=== PATIENT | female | born 1930 | race Caucasian/White ===

== ENCOUNTER 2017-11-27 18:45 | Inpatient (IN) | payer MEDICARE, OTHER ==
[~2017-11-27] VITALS: Ht 157.5 cm; Wt 68.9 kg
--- OUTSIDE RECORDS SUMMARY | ~2017-11-27 | XMS | Clinical Summary ---
Demographics + + + | Address | [address] | | | [place] [address] | + + + | Home Phone | | + + + | Preferred Language | Unknown | + + + | Marital Status | | + + + | Nondenominational Affiliation | Unknown | + + + | Race | Unknown | + + + | Ethnic Group | Unknown | + + + Author + + + | Author | [facility] | | | and Jjana | + + + | Organization | [facility] | | | and Jjana | + + + | Address | Unknown | + + + | Phone | Unavailable | + + + Support + + +---------+ + | Name | Relationship | Address | Phone | + + +---------+ + | Tomy Toledo | ECON | Unknown | | + + +---------+ + | Evelia Silvestre | ECON | Unknown | | + + +---------+ + Care Team Providers + +------+ + | Care Forensic Structural Engineer Name | Role | Phone | + +------+ + | Leobardo Jerez MD | PP | | + +------+ + Allergies No Known Allergies Current Medications + + + +---------+------+------+-------+ | Prescription | Sig. | Disp. | Refills | Star | End | Statu | | | | | | t | Date | s | | | | | | Date | | | + + + +---------+------+------+-------+ | losartan (COZAAR) | Take 100 mg by mouth | | | 12/16 | | Activ | | 100 MG tablet | Daily. | | | 07/04 | | e | | | | | | 12 | | | + + + +---------+------+------+-------+ | latanoprost | Place 1 drop into | 2.5 mL | | 01/15 | | Activ | | (XALATAN) 0.005% | the right eye | | | 09/03 | | e | | ophthalmic | nightly. | | | 13 | | | | solutionIndications: | | | | | | | | Glaucoma | | | | | | | + + + +---------+------+------+-------+ | albuterol (PROAIR | Inhale 2 puffs into | | | | | Activ | | HFA) 90 mcg/puff | the lungs every 6 | | | | | e | | inhaler | hours as needed for | | | | | | | | Wheezing or | | | | | | | | Shortness of Breath. | | | | | | + + + +---------+------+------+-------+ | potassium chloride | Take 40 mEq by mouth | | | | | Activ | | (K-DUR) 20 mEq ER | Daily as needed. | | | | | e | | tablet | | | | | | | + + + +---------+------+------+-------+ | amLODIPine | Take 5 mg by mouth | | | | | Activ | | (NORVASC) 5 mg | Daily. | | | | | e | | tablet | | | | | | | + + + +---------+------+------+-------+ | formoterol | Take 20 mcg by | | | | | Activ | | (PERFOROMIST) 20 | nebulization Every | | | | | e | | MCG/2ML nebulizer | 12 hours. | | | | | | | solution | | | | | | | + + + +---------+------+------+-------+ | budesonide | Take 0.5 mg by | | | | | Activ | | (PULMICORT) 0.5 mg/2 | nebulization 2 times | | | | | e | | mL nebulizer | daily. | | | | | | | solution | | | | | | | + + + +---------+------+------+-------+ | cyanocobalamin | Take 500 mcg by | | | | | Activ | | (VITAMIN B-12) 500 | mouth Daily. | | | | | e | | mcg tablet | | | | | | | + + + +---------+------+------+-------+ | Cholecalciferol | Take 10,000 Units by | | | | | Activ | | (VITAMIN D-3) 12861 | mouth Every other | | | | | e | | units CAPS | day. | | | | | | + + + +---------+------+------+-------+ | furosemide (LASIX) | Take 20 mg by mouth | | | | | Activ | | 20 mg tablet | Daily as needed for | | | | | e | | | Edema. 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) | 02/18/2015 | + + + | Exercise hypoxemia | 02/18/2015 | + + + | Vitamin B 12 deficiency | 02/09/2015 | + + + | Glaucoma | 01/29/2013 | + + + | Vasovagal syncope | 07/29/2011 | + + + | OSTEOPOROSIS | 04/12/2011 | + + + | HYPERTENSION | | + + + | Obstructive chronic bronchitis (HCC) | | + + + | OBESITY, MILD | | + + + + + | Overview: ICD-10 Record update | + + + +---+ | NEOPLASM, MALIGNANT, BREAST, HX OF | | + +---+ | G E R D | | + +---+ | FAMILY HISTORY OF ASTHMA | | + +---+ | FH DIABETES | | + +---+ | FH LUNG CANCER | | + +---+ | SHORTNESS OF BREATH | | + +---+ | ABNORMAL HEART RHYTHMS | | + +---+ | Lacunar infarction (HCC) | | + +---+ | Macular degeneration | | + +---+ + + | Overview: left eye | + + + +---+ | Lactose intolerance | | + +---+ | Vitamin D deficiency | | + +---+ | Osteoarthritis of right shoulder | | + +---+ Immunizations + + + + | Name | Dates Previously Given | Next Due | + + + + | INFLUENZA 67 Y OR >, | 01/23/2017, 12/19/2014 | | | TRIVALENT HIGH-DOSE | | | + + + + | INFLUENZA PF 20 Y OR | 02/13/2014, 01/30/2012 | | | >,TRIVALENT | | | | RECOMBINANT | | | + + + + | PNEUMOCOCCAL | 12/19/2014 | | | CONJUGATE 13-VALENT | | | | (PCV13) | | | + + + + | ZOSTER, 1 DOSE | 12/17/2007 | | | (ADULT) | | | + + + + Family History + + +------+ + | Medical History | Relation | Name | Comments | + + +------+ + | Asthma | Brother | | | + + +------+ + | Lung cancer | Brother | | | + + +------+ + | Prostate cancer | Brother | | | + + +------+ + | Prostate cancer | Brother | | | + + +------+ + | Emphysema | Brother | | | + + +------+ + | Alzheimer's disease | Brother | | | + + +------+ + | Colon cancer | Brother | | | + + +------+ + | Heart disease | Father | | | + + +------+ + | Diabetes | Mother | | | + + +------+ + | Heart disease | Mother | | | + + +------+ + | Cancer | Sister | | neck cancer | + + +------+ + | Heart disease | Sister | | | + + +------+ + | Rheum arthritis | Sister | | | + + +------+ + + +------+ + + | Relation | Name | Status | Comments | + +------+ + + | Brother | | Alive | | + +------+ + + | Brother | | | | + +------+ + + | Brother | | | | + +------+ + + | Brother | | | | + +------+ + + | Brother | | | | + +------+ + + | Brother | | Alive | | + +------+ + + | Brother | | | | + +------+ + + | Father | | | likely heart disease | + +------+ + + | Mother | | | likely heart disease | + +------+ + + | Sister | | | cancer | + +------+ + + | Sister | | | heart disease | + +------+ + + Social History + + + +--------+ + | Tobacco Use | Types | Packs/Day | Years | Date | | | | | Used | | + + + +--------+ + | Former Smoker | Cigarettes | 2 | 35 | [birth year]/03/1948 - | | | | | | 04/17/1985 | + + + +--------+ + + +---+---+---+ | Smokeless Tobacco: | | | | | Never Used | | | | + +---+---+---+ + + | Tobacco Cessation: Counseling Given: No | + + + + +---------+ + | Alcohol Use | Drinks/We | oz/Week | Comments | | | ek | | | + + +---------+ + | No | 0 | 0.0 | | | | Standard | | | | | drinks or | | | | | | | | | | equivalen | | | | | t | | | + + +---------+ + + + + | Sex Assigned at | Date Recorded | | | | + + + | Not on file | | + + + Last Filed Vital Signs + + + + | Vital Sign | Reading | Time Taken | + + + + | Blood Pressure | 130/78 | 07/03/2017 1247 PDT | + + + + | Pulse | 72 | 07/03/20171246 PDT | + + + + | Temperature | 36.9 C (98.5 F) | 07/03/20171246 PDT | + + + + | Respiratory Rate | 16 | 02/18/20151221 PST | + + + + | Oxygen Saturation | 94% | 07/03/20171246 PDT | + + + + | Inhaled Oxygen | - | - | | Concentration | | | + + + + | Weight | 67.4 kg (148 lb 9.4 | 07/03/20171246 PDT | | | oz) | | + + + + | Height | 154.9 cm (5' 1") | 07/03/20177 PDT | + + + + | Body Mass Index | 28.08 | 07/03/20177 PDT | + + + + Plan of Treatment + + + + + | Health Maintenance | Due Date | Last Done | Comments | + + + + + | Vaccine: | | | | | Dtap/Tdap/Td (1 - | 1 | | | | Tdap) | | | | + + + + + | Statin Therapy | | | | | (optimal intensity) | 5 | | | + + + + + | Vaccine: | | 12/19/2014 | | | Pneumococcal 65+ | 6 | | | | Low/Medium Risk (2 | | | | | of 2 - PPSV23) | | | | + + + + + | Vaccine: Influenza | | 01/23/2017, 12/19/2014, | | | (#1) | 8 | 02/13/2014, Additional history | | | | | exists | | + + + + + Goals + + + + + + | Patient Goal Type | Goal | Recent Progress | Patient- | Author | | | | | Stated? | | + + + + + + | Exercise | Exercise 3x per | | No | Conteh | | | week (30 min per | | | , Phan | | | time) | | | S, MD | + + + + + + Results Not on filefrom Last 3 Months Insurance + +--------+ +--------+ +---------+ | Payer | Benefi | Subscriber | Type | Phone | Address | | | t Plan | ID | | | | | | / | | | | | | | Group | | | | | + +--------+ +--------+ +---------+ | MEDICARE | MEDICA | [id number] | Medica | +1-- | | | | RE | | re | [phone] | | | | PART A | | | | | | | AND B | | | | | + +--------+ +--------+ +---------+ | COMMERCIAL GENERIC | COMMER | [id number] | PPO | | | | | CIAL | | | | | | | PPO | | | | | | | OTHER | | | | | + +--------+ +--------+ +---------+ + +--------+ +--------+ + + | Guarantor Name | Accoun | Relation to | Date | Phone | Billing Address | | | t Type | Patient | of | | | | | | | | | | + +--------+ +--------+ + + | CARLOS TOLEDO | Person | Self [birth year] | Home: | [address] | | | al/Fam | | 1930 | [phone] [place] [address] | | | sera | | | [phone] | | + +--------+ +--------+ + +
--- OUTSIDE RECORDS SUMMARY | ~2017-11-27 | XMS | Clinical Summary ---
Demographics + + + | Address | [address] | | | [place] [address] | + + + | Home Phone | | + + + | Preferred Language | Unknown | + + + | Marital Status | Single | + + + | Rastafari Affiliation | OTH | + + + | Race | White | + + + | Ethnic Group | Not or | + + + Author + + + | Author | [facility] | + + + | Organization | [facility] | + + + | Address | Unknown | + + + | Phone | Unavailable | + + + Support + + + + + | Name | Relationship | Address | Phone | + + + + + | JESSICA WRIGHT | ECON | [place] | | + + + + + Care Team Providers + +------+ + | Care Typists Supervisor Name | Role | Phone | + +------+ + PP | Unavailable | + +------+ + Source Comments IDRIS is fully live on both [facility] and [facility] Allergies No Active Allergies Current Medications + + +-------+---------+------+------+-------+ | Prescription | Sig. | Disp. | Refills | Star | End | Statu | | | | | | t | Date | s | | | | | | Date | | | + + +-------+---------+------+------+-------+ | BABY ASPIRIN OR | DAILY | | | | | Activ | | | | | | | | e | + + +-------+---------+------+------+-------+ | COZAAR OR | DAILY | | | | | Activ | | | | | | | | e | + + +-------+---------+------+------+-------+ | ATENOLOL OR | DAILY | | | | | Activ | | | | | | | | e | + + +-------+---------+------+------+-------+ | LOVASTATIN OR | DAILY | | | | | Activ | | | | | | | | e | + + +-------+---------+------+------+-------+ | Ascorbic Acid | DAILY | | | | | Activ | | (VITAMIN C) 500 mg | | | | | | e | | Oral TABS | | | | | | | + + +-------+---------+------+------+-------+ | Prazosin HCl 2 mg | 2 am & 2 pm | | | | | Activ | | Oral Cap | | | | | | e | + + +-------+---------+------+------+-------+ | Ibandronate | 1 x month | | | | | Activ | | (BONIVA) 150 mg Oral | | | | | | e | | Tab | | | | | | | + + +-------+---------+------+------+-------+ | Losartan Potassium | x2 | | | | | Activ | | 25 mg Oral Tablet | | | | | | e | + + +-------+---------+------+------+-------+ | ADVAIR DISKUS IN | twice daily | | | | | Activ | | | | | | | | e | + + +-------+---------+------+------+-------+ | | 1/2 tab daily | | | | | Activ | | Triamterene-Hydrochl | | | | | | e | | orothiazid 37.5-25 | | | | | | | | mg Oral Capsule | | | | | | | + + +-------+---------+------+------+-------+ | Prednisolone | 1 GTT BID LEFT EYE | | | | | Activ | | Acetate (PRED FORTE) | | | | | | e | | 1 % Ophthalmic | | | | | | | | Drops, Suspension | | | | | | | + + +-------+---------+------+------+-------+ Active Problems + + + | Problem | Noted Date | + + + | HBP (high blood pressure) | 09/07/2006 | + + + | Acute angle-closure glaucoma | 09/07/2006 | + + + | Chronic angle-closure glaucoma | 09/07/2006 | + + + + + | Overview: ICD10 | + + + +---+ | Macular degeneration | | + +---+ + + | Overview: 10 YEARS | + + + +---+ | Glaucoma | | + +---+ + + | Overview: 2 MONTHS | + + + +---+ | Emphysema | | + +---+ Family History + + +------+ + | Medical History | Relation | Name | Comments | + + +------+ + | Heart Disease | Father | | DISEASE | + + +------+ + | High blood pressure | Father | | | + + +------+ + | Diabetes | Mother | | | + + +------+ + | Heart Disease | Mother | | DISEASE | + + +------+ + | High blood pressure | Mother | | | + + +------+ + + +------+--------+ + | Relation | Name | Status | Comments | + +------+--------+ + | Father | | | | + +------+--------+ + | Mother | | | | + +------+--------+ + Social History + +-------+ +--------+------+ | Tobacco Use | Types | Packs/Day | Years | Date | | | | | Used | | + +-------+ +--------+------+ | Never Assessed | | | | | + +-------+ +--------+------+ + + + | Sex Assigned at | Date Recorded | | | | + + + | Not on file | | + + + Last Filed Vital Signs + +---------+ + | Vital Sign | Reading | Time Taken | + +---------+ + | Blood Pressure | 138/74 | 09/07/2006 11:55 AM PDT | + +---------+ + | Pulse | - | - | + +---------+ + | Temperature | - | - | + +---------+ + | Respiratory Rate | - | - | + +---------+ + | Oxygen Saturation | - | - | + +---------+ + | Inhaled Oxygen | - | - | | Concentration | | | + +---------+ + | Weight | - | - | + +---------+ + | Height | - | - | + +---------+ + | Body Mass Index | - | - | + +---------+ + Plan of Treatment + + + + + | Health Maintenance | Due Date | Last Done | Comments | + + + + + | INFLUENZA VACCINE | | | | | (FLU SHOT) | 8 | | | + + + + + Results Not on filefrom Last 3 Months Insurance + +--------+ +------+-------+---------+ | Payer | Benefi | Subscriber | Type | Phone | Address | | | t Plan | ID | | | | | | / | | | | | | | Group | | | | | + +--------+ +------+-------+---------+ | MEDICARE HMO | MEDICA | xxxxx | HMO | | | | | RE HMO | | | | | + +--------+ +------+-------+---------+ + +--------+ +--------+ + + | Guarantor Name | Accoun | Relation to | Date | Phone | Billing Address | | | t Type | Patient | of | | | | | | | | | | + +--------+ +--------+ + + | CARLOS TOLEDO | Person | Self | [birth year] | Home: | [address] | | | al/Adis | | 1930 | [phone] | [place] [address] | | | sera | | | [phone] | | + +--------+ +--------+ + +"
--- OUTSIDE RECORDS SUMMARY | ~2017-11-27 | XMS | Clinical Summary ---
Demographics + + + | Address | [address] | | | [place] [address] | + + + | Home Phone | | + + + | Preferred Language | Unknown | + + + | Marital Status | | + + + | Protestant Affiliation | Unknown | + + + | Race | Unknown | + + + | Ethnic Group | Unknown | + + + Author + + + | Author | [facility] | | | and Jjana | + + + | Organization | [facility] | | | and Jjana [...] Team Providers + +------+ + | Care Industrial Order Clerk Name | Role | Phone | + [...] | | Activ | | (VITAMIN D-3) 64133 | mouth Every other | | | [...] +--------+ +---------+ | MEDICARE | MEDICA | [id number] | Medica | +1-- | | | | RE | | re | [phone] | | | | PART A | | | | | | | AND B | | | | | + +--------+ +--------+ +---------+ | COMMERCIAL GENERIC | COMMER | [id number] | PPO | | | | | [...] | 1930 | [phone] | [place] [address] | | | sera | | | [phone] | | + +--------+ +--------+ + +
--- OUTSIDE RECORDS SUMMARY | ~2017-11-27 | XMS | Clinical Summary ---
Demographics + + + | Address | [address] | | | [place] [address] | + + + | Home Phone | | + + + | Preferred Language | Unknown | + + + | Marital Status | Single | + + + | Advent Affiliation | OTH | + + + | Race | White | + + + | Ethnic Group | Not or | + + + Author + + + | Author | [facility] | + + + | Organization | [facility] | + + + | Address [...] Team Providers + +------+ + | Care Gore Seamer Name | Role | Phone | + +------+ + PP | Unavailable | + +------+ + Source Comments IDRIS is fully live on both [facility] and [facility] InPatient.[facility] Allergies No Active Allergies Current Medications + [...] | 1930 | [phone] | [place] [address] | | | sera | | | [phone] | | + +--------+ +--------+ + +"
--- OUTSIDE RECORDS SUMMARY | ~2017-11-27 | XMS | Clinical Summary ---
Demographics + + + | Address | [address] | | | [place] [address] | + + + | Home Phone | | + + + | Preferred Language | Unknown | + + + | Marital Status | | + + + | Samaritan Affiliation | Unknown | + + + | Race | Unknown | + + + | Ethnic Group | Unknown | + + + Author + + + | Author | [facility] | | | and Jjana | + + + | Organization | [facility] | | | and Jjana [...] Team Providers + +------+ + | Care State Trooper Name | Role | Phone | + [...] | | Activ | | (VITAMIN D-3) 98892 | mouth Every other | | | [...] +--------+ +---------+ | MEDICARE | MEDICA | [id number] | Medica | +1-- | | | | RE | | re | [phone] | | | | PART A | | | | | | | AND B | | | | | + +--------+ +--------+ +---------+ | COMMERCIAL GENERIC | COMMER | [id number] | PPO | | | | | [...] | 1930 | [phone] | [place] [address] | | | sera | | | [phone] | | + +--------+ +--------+ + +
--- OUTSIDE RECORDS SUMMARY | ~2017-11-27 | XMS | Clinical Summary ---
Demographics + + + | Address | [address] | | | [place] [address] | + + + | Home Phone | | + + + | Preferred Language | Unknown | + + + | Marital Status | Single | + + + | Yarsani Affiliation | OTH | + + + | Race | White | + + + | Ethnic Group | Not or | + + + Author + + + | Author | [facility] | + + + | Organization | [facility] | + + + | Address | Unknown | + + + | Phone | Unavailable | + + + Support + + + + + | Name | Relationship | Address | Phone | + + + + + | JESSICA WRIGHT | ECON | [place] | | + + + + + Care Team Providers + +------+ + | Care Peer Educator Name | Role | Phone | + +------+ + PP | Unavailable | + +------+ + Source Comments IDRIS is fully live on both [facility] and [facility] InPatient.[facility] Allergies No Active Allergies Current Medications + [...] | 1930 | [phone] | [place] [address] | | | sera | | | [phone] | | + +--------+ +--------+ + +"
[~2017-11-27 18:45] MED LIST: BUDESONIDE0.25 MG/2 INH; CARVEDILOL25 MG PO; DULERA 100 MCG/13 GM INH; K-TAB ER20 MEQ PO; LASIX20 MG PO; LOSARTAN POTAS100 MG PO; NORVASC5 MG PO; POTASSIUM CHLO20 ME1 PO; TRIAMTERENE-HC1 EAC2 PO
--- NOTE | 2017-11-28 01:00 | NUR ---
REPORT RECEIVED FROM ED RN KARISSA. PT TO ARRIVE TO MS FLOOR VIA STRETCHER, UNSTABLE ON FEET.
--- NOTE | 2017-11-28 02:01 | NUR ---
PT ARRIVES TO MS FLOOR VIA STRETCHER WITH TESSY ANDREWS AT 0115. PT TRANSFERRED WITH 3 RN ASSIST TO HOSPITAL BED. IVF INFUSING WNL LEFT AC, FLUSHED WNL. PT C/O 9/10 PAIN IN RIGHT SIDE, PRN TYLENOL ADMINISTERED. PT GIVEN ICE PACK FOR RIGHT SIDE. 2PA WITH FWW TO BSC FOR VOID AND BACK TO BED. PT WEAK ON FEET DT PAIN. LUNGS CLEAR THROUGHOUT ALL LBOES, HR REGULAR RHYTHM ON TELE 4. VITALS COMPLETE. PT ORIENTED TO ROOM, GIVEN ICE WATER. CALL LIGHT IN LAP.
--- NOTE | 2017-11-28 03:33 | NUR ---
CHECKED ON PT, APPEARS TO BE SLEEPING, EYES CLOSED, RR 24, EQUAL CHEST RISE, HOB ELEVATED. IVF INFUSING. LIGHTS OFF IN ROOM. BED ALARM ON FOR PT SAFETY. CALL LIGHT NEXT TO PT.
--- NOTE | 2017-11-28 05:48 | NUR ---
PT ASSESSMENT AND VITALS COMPLETE AT THIS TIME. PT REQUESTING TO REST IN BED, STATES PAIN "IS BETTER", ASSISTED TO REPOSITION, RATES PAIN IN RIGHT SIDE 10/24, ICE PACK IN PLACE. LUNGS CLEAR THROUGHOUT, HR REGULAR RHYTHM ON TELE 4. CSM INTACT, LEGS WEAK BILATERALLY. IVF INFUSING WNL. PT HAS CALL LIGHT IN REACH. DENIES TOILETING NEEDS AT THIS TIME.
--- NOTE | 2017-11-28 05:51 | NUR ---
PT ARRIVES TO MED SURG FLOOR AT 0115. GAIT UNSTEADY DUE TO WEAKNESS/SORE RIGHT SIDE, 2PA WITH FWW TO BSC. SKIN TEAR WITH ALLEVYN ON LEFT ELBOW, SOME REDNESS NOTED ON RIGHT SIDE, SKIN GROSSLY INTACT. IVF INFUSING THROUGHOUT SHIFT. PRN TYLENOL, REPOSITIONING, AND ICE PACK FOR PAIN MANAGEMENT. HR REGULAR RHYTHM ON TELE 4.
--- NOTE | 2017-11-28 08:09 | EKG ---
[facility] [address] [place], [place] [address] Signed Sinus rhythm with 1st degree AV block Septal infarct , age undetermined Abnormal ECG No previous ECGs available Confirmed by EMILY SALINAS MD ([id number]) on 11/28/2017 8:08:52 AM Electronically Signed By: EMILY SALINAS MD 11/28/17808 PATIENT NAME: CARLOS TOLEDO Electrocardiogram DATE OF : 34 PHYSICIAN: EMILY SALINAS MD REPORT #: [id number] REPORT IS CONFIDENTIAL AND NOT TO BE RELEASED WITHOUT AUTHORIZATION
--- NOTE | 2017-11-28 10:14 | NUR ---
GUERRERO OF SHIFT REPORT WAS GIVEN BY EDI STILL AT CHANGE OF SHIFT. WHITE BOARD WAS UPDATED. IV FLUIDS, NS AT 75 ML/HR. PATIENT WAS ASLEEP WHEN REPORT WAS GIVEN. WILL CONTINUE TO MONITOR. 0950 ROUNDED ON PATIENT FOR MORNING MEDICATIONS. WAS REPORTED BY ROLLER STAKER THAT BP WAS ELEVATED. BLOOD PRESSURE MEDICATIONS ADMINISTERED AND BP WAS REASSESS, BUT STILL ELEVATED. PATIENT ALSO EXHIBITED DIFFICULTY WITH SWALLOWING WATER WITH MORNING MEDICATIONS, WILL SUGGEST A SWALLOW EVALUATION TO HOSPITALIST. RESPRIATORY RATE WAS ELEVATED WELL, WILL UPDATE HOSPITALIST OF THIS WELL.
--- NOTE | 2017-11-28 10:22 | NUR ---
HOSPITALIST BUSY WITH CRITICAL PATIENT IN CCU. NOTIFIED CCU NURSE TO HAVE HOSPITALIST CALL WHEN SOONEST AVAILABLE FOR UPDATE ON THIS PATIENT.
--- NOTE | 2017-11-28 10:47 | NUR ---
WHILE THE PATIENT RECIEVED A BED BATH BY THE CNAs, THE CNAs REPORTED THAT THE PATIENT WAS SOB AND FATIGUED. PATIENT WAS ASSESSED AND IT WAS FOUND THAT THEIR RESPRIATORY RATE WAS 36 AND THEY HAD SHALLOW BREATHING. HOSPITALIST HAS BEEN UPDATED ON PATIENT'S CONDITION.
--- NOTE | 2017-11-28 11:00 | NUR ---
PATIENT UP TO BSC WITH 2 PERSON ASSIST FWW AND GAITBELT. BEDBATH COMPLETE. PATIENT COMPLAINS OF NOT BEING ABLE TO MOVE RIGHT LEG, RN NOTIFIED. PATIENT SOUNDS WHEEZY, RN NOTIFIED. PATIENT BACK TO BED. RN IN ROOM. OT IN ROOM TO ASSIST PATIENT WITH ORAL CARE. CALL LIGHT IN REACH. NO FURTHER NEEDS AT THIS TIME.
--- NOTE | 2017-11-28 11:16 | NUR ---
PATIENT WORKING WITH OCCUPATIONAL THERAPY AT THIS TIME.
--- NOTE | 2017-11-28 12:28 | NUR ---
2PA BACK TO BED WITH FWW. HOB RAISED. 2L [address] SOB WITH ACTIVITY.
--- NOTE | 2017-11-28 13:42 | NUR ---
PT RESTING IN BED, WELCOMED ME INTO HER RM. WE BEGAN TO VISIT AND SHE RECEIVED A PHONE CALL, WILL CHECK BACK.
--- NOTE | 2017-11-28 13:44 | NUR ---
CHECKED BACK ON PT-HAD VISITOR. WILL TRY AGAIN.
--- NOTE | 2017-11-28 14:03 | NUR ---
PATIENT IN BED. PATIENT COMPLAINED OF LABORED BREATHING, RN NOTIFIED. PATIENT ASKED ABOUT NEBULIZER TREATMENT, RN NOTIFIED. FRESH THICKEND WATER GIVEN. CALL LIGHT IN REACH. NO FURTHER NEEDS AT THIS TIME.
--- NOTE | 2017-11-28 17:12 | NUR ---
ROUNDED ON PATIENT, REPORTED "10/10 PAIN WHEN I MOVE", PRN TYLENOL ADMINISTERED. WARM BLANKET PROVIDED. TAIL BOARD MAN VISITED. PATIENT EATING DINNER. CALL LIGHT WITHIN REACH. WILL CONTINUE TO MONITOR.
[2017-11-28] MEDS ORDERED: LATANOPROST2.5 ML OU (18:21)
[2017-11-28] MEDS ORDERED: FISH OIL 1,0001 EAC2 PO (18:23)
[2017-11-28] MEDS ORDERED: [UNRECOGNIZED DRUG - OTHER] PO (18:23)
[2017-11-28] MEDS ORDERED: CURCUMIN1 GM PO (18:25)
[2017-11-28] MEDS ORDERED: [UNRECOGNIZED DRUG - REMARK] PO (18:26)
[2017-11-28] MEDS ORDERED: VITAMIN B-121000 MCG PO (18:27)
[2017-11-28] MEDS ORDERED: CALCIUM500 MG PO (18:27)
[2017-11-28] MEDS ORDERED: VITAMIN D1000 UNIT PO (18:27)
--- NOTE | 2017-11-28 18:28 | NUR ---
MED REC COMPLETE
--- NOTE | 2017-11-28 18:43 | NUR ---
2PA, BSC, FWW. 2 LPM CHRONIC WITH NC. TELE 4, SINIUS RHYTHM. PATIENT HAD DIFFICULTY SWALLOWINIG THIS MORNING, SWALLOW EVAL WAS CONDUCTED, THICKER LIQUID USED UNTIL SPEECH THERAPY COULD CONSULT. SPEECH THERAPIST ORDERED, REGULAR DIET, CHOPPED WITH NECTAR THICK LIQUIDS. PATIENT COMPLAINED OF 10/10 PAIN, PRN TYLENOL GIVEN. HIGH RESPIRATORY RATE WITH COMPLAINTS OF SOB, NEBULIZER TREATMENT PROVIDED THIS AFTERNOON. BLOOD PRESSURES TRENDED ON THE HIGHER SIDE. IV FLUIDS INFUSING.
--- NOTE | 2017-11-28 18:51 | NUR ---
PRN NEB GIVEN AT THIS TIME, FOR SHORTNESS OF BREATH, DYSPNEA WITH ACTIVITY UP TO BSC.
--- NOTE | 2017-11-28 19:01 | NUR ---
NEBULIZER TREATMENT COMPLETED. RESPRIATORY RATE 32, REPORTS IMPROVED SOB, O2: 95%, PULSE: 68.
--- NOTE | 2017-11-28 19:53 | NUR ---
RECEIVED REPORT FROM DAYSHIFT RN WHO STATES DR SALINAS IS AWARE OF PT'S RR OF 28-32 AND OF PT'S INCREASED SOB AND L SIDED PAIN WITH EXERTION. PT ON 2LPNC AND APPEARS TO BE SLEEPING COMFORTABLY. ASSESSMENT COMPLETED.
--- NOTE | 2017-11-28 22:04 | NUR ---
PT RESTING SUPINE IN BED, EYES CLOSED, RR18. PT APPEARS TO BE SLEEPING COMFORTABLY CALL LIGHT AND H20 IN REACH.
--- NOTE | 2017-11-29 01:03 | NUR ---
PT RESTING SUPINE IN BED, RR 18, CALL LIGHT IN REACH. PT EYES CLOSED AND APPEARS TO BE SLEEPING COMFORTABLY.
--- NOTE | 2017-11-29 04:16 | NUR ---
IN TO SEE PT. PT RESTING IN BED, RR16, EYES CLOSED AND APPEARS TO BE SLEEPING COMFORTABLY. H2O AND CALL LIGHT IN REACH. ICE, ABDUCTOR PILLOW, AND SCD'S IN PLACE.
--- NOTE | 2017-11-29 06:07 | NUR ---
PT RESTING SUPINE IN BED NC AT 2LPNC AND RR 20, CALL LIGHT AND H20 IN REACH. PT APPEARS TO BE SLEEPING COMFORTABLY.
--- NOTE | 2017-11-29 07:07 | NUR ---
dr saravia notified of pt's most recent vs's. no new orderes received. pt resting supine in bed and appears to be sleeping comfortably. rr20. call light and h20 in reach.
--- NOTE | 2017-11-29 08:32 | NUR ---
CHANGE OF SHIFT REPORT: REPORT RECIEVED FROM BOZENA STILL THIS MORNING. PATIENT RESTING COMFORTABLY IN BED. IV FLUIDS INFUSING. WHITE BOARD UPDATED. ALL QUESTIONS ANSWERED. 0832: ROUNDED ON PATIENT, 2PA TO BSC, MORNING MEDICATIONS PASSED WITH TYLENOL PRN FOR HER 10/10 PAIN WITH MOVEMENT. CNAs SHOWERING PAITENT WITH OCCUPATIONAL THERAPY NEARBY. LINENS CHANGED ON BED, ROOM WAS CLEANED, PROVIDED NEW CUP OF THICKENED WATER. UNABLE TO DO HEAD TO TOE ASSESSMENT AT THIS TIME.
--- NOTE | 2017-11-29 09:38 | NUR ---
PATIENT UP TO BSC FROM BED WITH 2 PERSON ASSIST FWW AND GAITBELT. PATIENT UP TO SHOWERCHAIR FROM BSC. OT IN TO HELP WITH SHOWER. PATIENT ASSISTED IN SHOWER. PATIENT NOW IN CHAIR WITH FEET UP. LINENS CHANGED. FRESH WATER GIVEN. CALL LIGHT IN REACH. NO FURTHER NEEDS AT THIS TIME.
--- NOTE | 2017-11-29 10:01 | NUR ---
0940 RECIEVED BLOOD FROM LAB AT 0930. VERIFIED THE BLOOD BAG WITH ESTEBAN CHAPIN IN THE LABORATORY. 2ND CROSS CHECK WAS CONDUCTED BY NAOMIE RN, BOBBI RN, AND MARK STILL AT PATIENTS BEDSIDE. VITAL SIGNS STABLE. INFUSION STARTED AT 0951. PATIENT ASSESSMENT CONDUCTED. PATIENT REPORTED FEELING "CLOUDY" AND "WHOOZY".
--- NOTE | 2017-11-29 11:18 | NUR ---
ROUNDED ON PATIENT TO ADMINSTER POTASSIUM AND TO REASSESS PAIN, STILL REPORTED "10/10 PAIN WITH MOVEMENT". DIFFICULTY WITH SWALLOWING PILLS EVEN WITH NECTAR THICK LIQUIDS, INSTRUCTED PATIENT TO TUCK CHIN WHILE SWALLOWING. WILL CONTINUE TO REINFORCE. UP IN RECLINER WITH FAMILY AT BEDSIDE. ONCOLOGY PHYSICIAN VISITNG WITH PATIENT AND FAMILY.
--- NOTE | 2017-11-29 11:20 | NUR ---
CARE CONFERENCE ALL PERSONS NEEDED WERE PRESENT. I WAS ASKED TO COME TO THE ROOM BY THE PT NURSE NAOMIE THE SON RUBEN WAS HERE AND HE WAS THINKING HIS MOTHER WAS BEING DISCHARGED TODAY. I REASSURED HIM THAT SHE WAS NOT BEING DC TODAY SHE IS NOT READY TO BE DISCHARGED. HE WAS OK WITH THIS. WE THEN STARTED TALKING ABOUT THE NEED FOR HER TO POSSIBLY GO TO A SNF FOR MORE REHAB TO MAKE HER STRAONGER SO SHE WOULD HOPEFULLY HAVE A SAFER DC THIS WAY. HE STATES THAT HE DOESN'T THINK SHE WILL GO TO [facility] SHE HAS DEALT WITH THEM BEFORE AND IS NOT INTERESTED IN GOING BACK THERE. I THEN BROUGHT UP THE POSSIBILITY OF THE PT BECOMING A TRANSITIONAL SWING BED PT, BOTH THE SON AND THE PT WERE MORE THAN WILLING FOR THIS TO HAPPEN RUBEN STATES HE JUST WOULD LIKE TO TALK WITH HIS SISTER ABOUT THIS. MY BUSINESS CARD GIVEN TO RUBEN AND TOLD HIM THAT HE OR HIS SISTER ARE MORE THAN WELCOME TO CALL ANYTIME OF DAY AND LEAVE A MESSAGE IN CASE I DON'T ANSWER. DENIES FURTHER QUESTIONS OR CONCERNS AT THIS TIME.
--- NOTE | 2017-11-29 12:00 | NUR ---
PT WALKING WITH P.T. SEEMED TO BE SOB, WORKING HARD TO REGAIN HER STRENGTH. ENCOURAGED PT, WILL CONTINUE TO FOLLOW
--- NOTE | 2017-11-29 13:20 | NUR ---
PATIENT BACK TO BED FROM BATHROOM. FRESH WATER PROVIDED. CALL LIGHT IN REACH. NO FURTHER NEEDS AT THIS TIME.
--- NOTE | 2017-11-29 16:27 | NUR ---
PATIENT RESTING COMFORTABLY IN CHAIR, VISITING WITH VISITORS. BANDAGE ON LEFT ELBOW SHOWS DIME SIZE DRAINAGE. WILL ALSO NOTIFY HOSPITALIST OF PATIENT'S TRENDING HIGH RESPRIRATORY RATE. REMINDED PATIENT ABOUT AVALIABLE PRN TYLENOL, PATIENT WOULD LIKE IT BROUGHT WITH DINNER. CALL LIGHT WITHIN REACH, NO MORE COMPLAINTS AT THIS TIME. WILL CONTINUE TO MONITOR.
--- NOTE | 2017-11-29 17:35 | NUR ---
PATIENT UP TO BATHROOM FROM CHAIR, 1 PERSON ASSIST FWW. PATIENT NOW BACK IN CHAIR. FRESH WATER GIVEN. CALL LIGHT IN REACH. NO FURTHER NEEDS AT THIS TIME.
--- NOTE | 2017-11-29 18:46 | NUR ---
PT WORKED WITH PT/OT/ST TODAY. NECTAR THICK LIQUIDS. CHOPPED FOOD. 1PA FWW. SOB WITH ACTIVITY. 2L 02 CHRONIC. SCHEDULED NEBS. ALLEVYN LEFT ELBOW. POTASSIUM SUPPS X2 PO. NIO ADDED FOR BOWEL MOVEMENT THERAPY. NS @ 75. TELE DISCONTINUED.
--- NOTE | 2017-11-29 19:05 | NUR ---
ROUNDED ON PATIENT FOR EVENING MEDICATIONS AND IT WAS NOTED THAT PATIENT HAD DIFFICULTY SWALLOWING PILLS WITH THICKENED LIQUIDS. LAST MEDICATION ADMINISTERED WAS CRUSHED UP AND PLACED IN PUDDING, PATIENT TOLERATED THIS WELL. REINFORCED CHIN TUCK, NONCOMPLIANT WITH CHIN TUCK.
--- NOTE | 2017-11-29 19:25 | NUR ---
REPORT RECEIVED FROM TESSY AKBAR. PT RESTING IN BED ON 2LPNC. PT DENIES SOB AND STATES PAIN IS TOLERABLE AT THIS TIME WHILE SHE IS RESTING AND REPORTS THAT SHE CONTINUES TO DEVELOP INCREASED PAIN TO RIGHT SIDE AND SOB WITH EXERTION. PER DAYSHIFT RN DR SCOTT IS AWARE OF PT'S S/SX'S AND VS'S. PT ASSESSMENT COMPLETED. CALL LIGHT AND NECTAR THICK H2O IN REACH.
--- NOTE | 2017-11-29 20:41 | NUR ---
PT ASSISTED UP TO RESTROOM WITH 2 PERSON ASSIST AND FWW. PT REMAINS ON 2LPNC AND REPORTS SOB AND RIGHT RIB PAIN WITH EXERTION BUT SX'S ARE LESS THAN YESTERDAY. PT ASSISTED BACK INTO BED. CALL LIGHT AND NECTAR THICK FLUIDS IN REACH. NO FURTHER NEEDS/REQUESTS VOICED.
--- NOTE | 2017-11-29 21:30 | NUR ---
in to ansere call light, per pt request lights turned off and hob lowered 20 25degrees. call light in reach.
--- NOTE | 2017-11-29 23:01 | NUR ---
PT RESTING SUPINE IN BED, EYES CLOSED AND PT APPEARS TO BE SLEEPING COMFORTABLY. RR 28; MD IS AWARE THAT PTS RR HAS BEEN TRENDING HIGH. PT REMAINS ON 2LPNC. CALL LIGHT AND H20 IN REACH.
--- NOTE | 2017-11-30 00:35 | NUR ---
PT ASSISTED UP TO RESTROOM WITH FSS AND 2 PERSON ASSIST. 100MLS CLEAR YELLOW URINE OUT AND PT ASSISTED BACK INTO BED. IV MAINTENANCE FLUIDS CONTINUSE TO INFUSE AND PT PLACED ON 2LPNC. CALL LIGHT AND H20 IN REACH. PT DENIES FURTHER REQUESTS/CONCERNS.
--- NOTE | 2017-11-30 02:05 | NUR ---
PT RESTING SUPINE IN BED, RR26 O2 AT 2LPNC. PT APPEARS TO BE SLEEPING COMFORTABLY. CALL LIGHT ANT NECTAR THICK WATER IN REACH.
--- NOTE | 2017-11-30 05:17 | NUR ---
VITALS AND I&OS DONE AND CHARTED. HELPED HER TO THE BATHROOM AND BACK TO BED WITH HER FWW. BEDSIDE TABLE AND CALL LIGHT WITHIN REACH.
--- NOTE | 2017-11-30 06:44 | NUR ---
PT SLEPT MAJORITY OF NIGHT. PT UP TO RESTROOM WITH 1-2 PERSON ASSIT AND FWW. PT VOIDING QS CLEAR YELLOW URINE AND TOLORATES NECTAR THICK FLUIDS. PT HAS IV MAINTENANCE FLUIDS INFUSING. PT REMAINS TACHYPNIC AND HAS SCHEDULED NEBULIZER TREATMENTS. PT CONTINUES TO REPORT INCREASED PAIN AND SOB WITH MOVEMENT/ EXERTION. PT'S VS'S HAVE BEEN STABLE FOR PT AND PT REMAINS ON 2LPNC. PT USES CALL LIGHT APPROPRIATLEY AND STATES SHE DOES NOT FEEL SOB AT REST AND PAIN HAS ALSO BEEN TOLERABLE AT REST.
--- NOTE | 2017-11-30 08:06 | NUR ---
PT IN BED, RECENTLY AWAKENED, NO DISTRESS. PT DENIES SOB, BREATHING SHALLOWLY, COULD NOT MOVE HERSELF TO HER SIDE OR UP IN BED INDEPENDENTLY FOR ASSESSMENT. PT STATES PAIN IS INCREASED WHEN SHE MOVES AND REFUSES PAIN MANAGEMENT AT THIS TIME.
--- NOTE | 2017-11-30 10:34 | NUR ---
PATIENT REFUSE TO TAKE A SHOWER TODAY. PATIENT ASSITED TO GO TO THE BATHROOM. SET UP BED WITH CLEAN LINENS.
--- NOTE | 2017-11-30 11:42 | NUR ---
PATIENT WAS PROVIDED WITH A WARM BLANKET. NO MORE NEEDS AT THIS TIME.
--- NOTE | 2017-11-30 12:00 | NUR ---
PT UP TO CHAIR AND HAVING DIFFICULTY SWALLOWING PILLS. PT STATES "I AM NOT MUCH OF A PILL TAKER." REPORTED DIFFICULTY TO PROVIDER. NO CHANGES IN CONDITION WILL CONTINUE TO MONITOR.
--- NOTE | 2017-11-30 13:09 | NUR ---
TOOK OUT PATIENT'S IV.
--- NOTE | 2017-11-30 14:17 | NUR ---
IV DISCONTINUED IN LEFT AC DUE TO LEAKAGE. TWO ATTEMPTS THIS AFTERNOON TO REPLACE, UNABLE TO PLACE IV. NOTIFIED PROVIDER, PROVIDER OK WITH NO IV ACCESS TODAY. WILL CONTINUE TO MONITOR.
--- NOTE | 2017-11-30 14:25 | NUR ---
TALKED WITH PT SON REGARDING THE TOOLS FOR ASSISTING WITH HER ADLS THAT OT SUGGESTED. HE STATED HE WOULD COME [place] TOM[place] AND SEE IF HE COULD PICK THOSE UP FOR HER AND BRING THEM HERE.
--- NOTE | 2017-11-30 17:29 | NUR ---
PT STATES SHE DENIES PAIN, IT ONLY OCCURS WHEN SHE MOVES. PT HAS NO DISTRESS, HAS HAD DIFFICULTY WITH SWALLOWING PILLS THIS AFTERNOON, BUT HAS BEEN SUCCESSFUL WITH THICKENED LIQUIDS. WILL CONTINUE TO MONITOR.
--- NOTE | 2017-11-30 17:30 | NUR ---
PT HAS COMPLAINS OF INTERMITTENT PAIN MADE WORSE BY MOVEMENT. PT HAS SIGNIFICANT WEAKNESS, MORE PRONOUNCED ON THE RIGHT SIDE. PT IS ON A DYSPHAGIA DIET WITH NECTAR THICK LIQUIDS. PT DENIES SOB, SATS STABLE AT REST WITH 2LNC, DESAT WITH EXERTION. UP WITH 1-2 ASSIST WITH FWW, UNABLE TO PULL HERSELF UP IN BED, BUT CAN AMBULATE WITH STANDBY ASSIST AND WALKER.
--- NOTE | 2017-11-30 19:02 | NUR ---
REPORT RECEIVED FROM TESSY ATKINSON. PT DENIES NEEDS AT THIS TIME AND IS SUPINE IN BED RR26. CALL LIGHT AND H20 IN REACH.
--- NOTE | 2017-11-30 20:05 | NUR ---
Pt resting in bed call light and nectar thick h20 in reach and pt denies needs at this time. Assessment completed.
--- NOTE | 2017-11-30 20:31 | NUR ---
VITALS AND I&OS DONE AND CHARTED. HELPED PT TO THE BATHROOM AND BACK TO BED WITH THE HELP FROM TESSY OWEN AND HER FWW. BEDSIDE TABLE AND CALL LIGHT WITHIN REACH. PT ALSO WASHED HER FACE AND BRUSHED HER TEETH WHEN IN THE BATHROOM. SHE NEEDS NOTHING ELSE AT THIS TIME.
--- NOTE | 2017-11-30 21:33 | NUR ---
CHARGE NURSE ROUNDING NOTE: IN BED, WATCHING TV, NO C/O PAIN OR REQUESTRS, PT [place]. HEARING AIDS, THICKENED LIQUIDS AND CALL LIGHT WITHING HANDS REACH SOB WITH EXERTION NOTED, CHRONIC O2 USE AT 2L
--- NOTE | 2017-11-30 22:50 | NUR ---
PT RESTING SUPINE IN BED, EYES CLOSED AND RR28 ON 2LPNC. PT APPEARS TO BE SLEEPING COMFORTABLY. CALL LIGHT AND NECTAR THICK FLUIDS IN REACH.
--- NOTE | 2017-11-30 23:14 | NUR ---
PT RESTING IN BED RR 28, 2LPNC IN PLACE, EYES CLOSED AND PT APPEARS TO BE SLEEPING COMFORTABLY. DR ADAMES WAS NOTIFIED THAT PT REMAINS TACHYPNIC BETWEEN 22-30 BPM & THAT THIS HAS BEEN PT'S BASELINE RR SINCE PT ADMITTED TO HOSPITAL. LUNG SOUNDS HAVE REMAINED CLEAR IN UPPER LUNG CUMMINS AND DIMINISHED IN BILAT BASES. PT DENIES SOB AT REST BUT REPORTS SOB AND PAIN TO RIGHT SIDE WITH EXERTION.
--- NOTE | 2017-12-01 00:38 | NUR ---
PT UP TO RESTROOM WITH ONE PERSON SBA AND FWW. PT REPORTS SOB AND RIGHT SIDE PAIN WITH AMBULATION THAT RELEIVES WHEN PT ASSISTED BACK INTO BED WITH ONE PERSON ASSIST (PT UNABLE TO LIFT LEGS INTO BED WITHOUT ASSISTANCE). PT PLACED IN POSITION OF COMFORTA ND PT GIVEN NECTAR THICK CRANBERRY JUICE PER REQUEST. CALL LIGHT AND FLUIDS IN REACH. PT REMAINS ON 2LPNC AND WARM PACK APPLIED TO RIGHT SIDE FOR COPMFORT. PT STATES SHE IS COMFORTABLE AND DENIES SOB/PAIN AT REST.
--- NOTE | 2017-12-01 02:20 | NUR ---
Pt resting supine in bed. call light in reach. Pt appears to be sleeping comfortably.
--- NOTE | 2017-12-01 04:23 | NUR ---
pt resting in bed eyes closed, rr 26 on 2lpnc. pt appears to be sleeping comfortably. call light and nectar thick fluid in reach.
--- NOTE | 2017-12-01 04:53 | NUR ---
PT UP TO RESTROOM WITH 1PA AND FWW.
--- NOTE | 2017-12-01 05:27 | NUR ---
VITALS AND I&OS DONE AND CHARTED. HELPED PT TO THE BATHROOM AND BACK TO BED WITH HER FWW. SHE HAD SOME DRINKS OF HER CRANBERRY JUICE. BEDSIDE TABLE AND CALL LIGHT WITHIN REACH.
--- NOTE | 2017-12-01 05:43 | NUR ---
PT SLEPT WELL THROUGH MOST OF NIGHT. PT HAS REMAINED TACHYPNIC BUT O2 SATURATION MAINTAINS ABOVE 92% ON 2LPNC AND PT HAS DENIED SOB AT REST. PT DOES REPORT PAIN TO RIGHT SIDE AND SOB WITH AMBULATION HOWEVER PT DOES NOT DESAT WITH ACTIVITY. PT HAS HAD QS CLEAR YELLOW URINE OUTPUT. PT HAS BEEN 1-2 PERSON ASSIST WITH FWW TO RESTROOM. PT'S LUNG SOUNDS ARE CLEAR IN UPPER LUNG CUMMINS BUT DIMINISHED IN BILATERAL BASES. PT HAS BEEN ENCOURAGED TO USE I.S. 10X PER HOUR WHILE AWAKE. PT HAS BEEN PLEASANT, A/O AND COMPLIANT WITH CARE PLAN. PT TOLORATES NECTAR THICK FLUIDS AND REMAINS ON DYSPHAGIA DIET.
--- NOTE | 2017-12-01 06:45 | NUR ---
PT RESTING SUPINE IN BED ALERT TO VOICE AND STATES "I FEEL LIKE I SLEPT WELL". PT ENCOURAGED TO USE I.S. 10X PER HOUR WHILE AWAKE. NECTAR THICK WATER AND CRANBERRY JUICE IN REACH AND PT WAS ENCOURAGED TO DRINK MORE FLUIDS. NO NEEDS OR CONCERNS VOICED.
--- NOTE | 2017-12-01 08:32 | NUR ---
PT SITTING UP IN BED EATING BREAKFAST, TOLERATING DYSPHAGIA DIET WITH NECTAR THICK LIQUIDS WELL. NO DISTRESS, PT STATES THAT INTERMITTENT PAIN WHILE MOVING IS IMPROVED FROM YESTERDAY. TITRATED O2 TO 3LNC DUE TO SOB. ENCOURAGED IS TO PREVENT COMPLICATIONS, PT DEMONSTRATED UNDERSTANDING. WILL CONTINUE TO MONITOR.
--- NOTE | 2017-12-01 08:44 | NUR ---
pt called to say she needed to go bathroom, assisted her to the bathroom from her bed pt used her walker. pt voided and then walked to sink where she washed her hands and face. pt also cleaned dentures and put them back in mouth. pt then walked to chair and is now sitting up with feet elevated. pt asked for a warm blanket.
== END 2017-12-01 11:20 | disposition swing bed (61) | DRG 564 ==
LOC: ED 18:45 → MS 11-28 00:27
PROVIDERS: ADMIT Internal Medicine
DX: T79.6XXA Traumatic ischemia of muscle, initial encounter (principal); I63.9 Cerebral infarction, unspecified; J96.11 Chronic respiratory failure with hypoxia; W19.XXXA Unspecified fall, initial encounter; M25.551 Pain in right hip; I10 Essential (primary) hypertension; R13.12 Dysphagia, oropharyngeal phase; R53.81 Other malaise; J44.9 Chronic obstructive pulmonary disease, unspecified; Z85.3 Personal history of malignant neoplasm of breast; M81.0 Age-related osteoporosis without current pathological fracture; E78.5 Hyperlipidemia, unspecified; H54.40 Blindness, one eye, unspecified eye; Z87.891 Personal history of nicotine dependence
CPT/HCPCS: 36415; 51701; 70450; 71101; 80048; 80053; 81001; 82550; 84484; 85025; 85610; 85730; 92610; 93005; 93010; 94640; 94760; 97110; 97116; 97162; 97166; 97535; 99285; J1650; J7030

== ENCOUNTER 2017-12-01 11:20 | Inpatient (IN) | payer MEDICARE, OTHER ==
[~2017-12-01] VITALS: Ht 157.5 cm; Wt 68.9 kg
--- OUTSIDE RECORDS SUMMARY | ~2017-12-01 | XMS | Clinical Summary ---
Demographics + + + | Address | [address] | | | [place] [address] | + + + | Home Phone | | + + + | Preferred Language | Unknown | + + + | Marital Status | | + + + | Sikh Affiliation | Unknown | + + + | Race | Unknown | + + + | Ethnic Group | Unknown | + + + Author + + + | Author | [facility] | | | and Jjana | + + + | Organization | [facility] | | | and Jjana [...] Team Providers + +------+ + | Care Show Worker Name | Role | Phone | + [...] | | Activ | | (VITAMIN D-3) [phone] | mouth Every other | | | [...] +--------+ +---------+ | MEDICARE | MEDICA | [id number] | Medica | [phone]-- | | | | RE | | re | [phone] | | | | PART A | | | | | | | AND B | | | | | + +--------+ +--------+ +---------+ | COMMERCIAL GENERIC | COMMER | [id number] | PPO | | | | | [...] | 1930 | [phone] | [place] [address] | | | sear | | | [phone] | | + +--------+ +--------+ + +
--- OUTSIDE RECORDS SUMMARY | ~2017-12-01 | XMS | Clinical Summary ---
Demographics + + + | Address | [address] | | | [place] [address] | + + + | Home Phone | | + + + | Preferred Language | Unknown | + + + | Marital Status | Single | + + + | Protestant Affiliation | OTH | + + + | Race | White | + + + | Ethnic Group | Not or | + + + Author + + + | Author | [facility] | + + + | Organization | [facility] | + + + | Address [...] Team Providers + +------+ + | Care Tube Cleaner Name | Role | Phone | + +------+ + PP | Unavailable | + +------+ + Source Comments [facility] is fully live on both [facility] and [facility].Formerly [facility] Allergies No Active Allergies Current Medications [...] | 1930 | [phone] | [place] [address] | | | sera | | | [phone] | | + +--------+ +--------+ + +"
[~2017-12-01 11:20] MED LIST changes: +CALCIUM500 MG PO; +CURCUMIN1 GM PO; +FISH OIL 1,0001 EAC2 PO; +LATANOPROST2.5 ML OU; +VITAMIN B-121000 MCG PO; +VITAMIN D1000 UNIT PO; +[UNRECOGNIZED DRUG - OTHER] PO; +[UNRECOGNIZED DRUG - REMARK] PO
--- NOTE | 2017-12-01 11:59 | NUR ---
PT WAS SITTING IN CHAIR-FEELING BETTER THAN YESTERDAY. SLEPT WELL AND SEEMS TO HAVE A LITTLE DIFFERENT PERSPECTIVE. PT REQUESTED PRAYER, WILL FOLLOW NEEDED
--- NOTE | 2017-12-01 15:44 | NUR ---
PATIENT TO SWING BED STATUS TODAY. UNDERSTANDS SHE WILL BE DOING THERAPY. PATIENT IS UP WITH PT AT THIS TIME.
--- NOTE | 2017-12-01 17:29 | NUR ---
PT UP TO CHAIR FOR MOST OF THE AFTERNOON, WORKED WITH PT. PT HAD ONE LARGE BOWEL MOVEMENT AFTER MAG CITRATE. PT HAS INTERMITTENT EXERTIONAL SOB, RESOLVES WITH REST. WILL CONTINUE TO MONITOR.
--- NOTE | 2017-12-01 18:05 | NUR ---
PT WAS TRANSITIONED TO SWING BED TODAY. PT HAS HAD A SHOWER, WORKED WITH PT/OT, HAS HAD SCHEDULED NEBS. INTERMITTENT EXERTIONAL SOB. PT HAS BEEN ABLE TO PULL HERSELF UP IN BED AND IN THE CHAIR, AND AMBULATE INDEPENDENTLY WITH FWW.
--- NOTE | 2017-12-01 20:42 | NUR ---
Up to brp with one assist and fww, voided and had a smear of bm. Pt did own sarah care. Back to bed, O2 2L NC in place, SOB present with exertion. Warm packs to r back in place. Allevyn dressing left elbow in place, denies needing elbow protectors when in bed. HOB elevated. legs elevated, bed alarm in place. fluids and call light within hands reach
--- NOTE | 2017-12-01 22:00 | NUR ---
RESTING, EYES CLOSED, O2 2L NC IN PLACE, NO RESP DISTRESS,
--- NOTE | 2017-12-02 01:00 | NUR ---
RESTING, NO C/O APIN, NO DISTRESS, O2 IN PLACE,
--- NOTE | 2017-12-02 01:04 | NUR ---
UP TO BRP, VOIDED CLEAR YELLOW URINE, BACK TO BED. SOB WITH EXERTION AND TACHEIPNEIC W R 22. O2 SATS 90% WITH 2LNC ON. BACK TO BED. REQUIERES ONE PERSON ASSIST AND FWW. PAINFUL RIGHT SIDE. DENIES NEED FOR PAIN MEDS. LEGS ELEVATED, HOB ELEVATED, CALL LIGHT AND NECTAR THICVK FLUIDS AT BEDSIDE
--- NOTE | 2017-12-02 03:32 | NUR ---
RESTING, O2 IN PLCAE, NO RESP DISTRESS, LEG ELEVATED, CALL LIGHT AND THICKENED FLUIDS WITHIN HANDS REACH
--- NOTE | 2017-12-02 05:31 | NUR ---
resting, O2 in place, legs elevated, no c/o pain
--- NOTE | 2017-12-02 05:56 | NUR ---
CURRENTLY RESTING, EYES CLOSED, NO RESP DISTRESS. O2 2L NC IN PLACE, CHRONIC USE. SOB WITH EXERTION PRESENT WITH MOVEMENT, AUDIBLE WHEEZING HEARD, LUNGS DIMINISHED, NO WHEEZING AUSCULTATED. REQUIRES ONE PERSON ASSIST AND FWW TO GET UP TO BRP. HAS VOIDIDED QS. NO BMS THIS SHIFT.. LEGS ELEVATED, EDEMATOUS, MULTIPLE BRUISING OVER ARMS, R LATERAL SIDE, AND R KNEE PRESENT, PAINFUL WITH MOVEMENT AT TIMES, HAS DENIED NEED FOR PAIN MED. ALLEVYN DRESSING LEFT ELBOW. USES ELBOW PROTECTORS WHEN UP IN HCAIR. CONTINUES ON SWING BED STATUS. ASPIRATION AND HIGH FALL RISK PRECAUTIONS. MEDS GIVEN CRUSHED IN APPLESAUCE, ON CARDIAC DYSPHAGIA GROUND WITH NECTAR THICK LIQUIDS DIET., PT WORKING WITH OT/RT/ST.
--- NOTE | 2017-12-02 12:35 | NUR ---
PT UP TO COMMODE WITH ASSIST, USING WALKER WELL FOR AMBULATION. PT HAS REFUSED SHOWER TODAY, SINCE SHE HAD ONE YESTERDAY. WILL CONTINUE TO MONITOR.
--- NOTE | 2017-12-02 19:10 | NUR ---
BEDSIDE REPORT RECEIVED FROM OFFGOING RNCHINA. PT RESTING IN BED WITH EYES CLOSED. APPEARS TO BE SLEEPING.
--- NOTE | 2017-12-02 21:00 | NUR ---
PT ASSESSMENT COMPLETE. PT DENIES PAIN, NAUSEA, SOB. O2 IN PLACE AT 2 LPM. 1+ PITTING EDEMA PRESENT TO BLE'S, PT STATES THIS IS CHRONIC FOR HER. BT'S ACTIVE. ABDOMEN SLIGHTLY DISTENDED, PT DENIES TENDERNESS. ALLEVYN FOAM IN PLACE TO L ELBOW, C/D/I. PT'S HEARING AIDES AND GLASSES REMOVED FOR BED. PT DENIES OTHER NEEDS AT THIS TIME. CALL LIGHT WITHIN REACH, ROOM WITHIN VIEW OF NURSES STATION.
--- NOTE | 2017-12-02 22:15 | NUR ---
PT ASSISTED TO THE BATHROOM WITH 1PA AND FWW. PT TOLERATED WELL, ABLE TO STAND AT SINK TO REMOVE HER TEETH AND BRUSH HER GUMS. PT ASSISTED BACK TO BED. PT DENIES NEEDS AT THIS TIME. CALL LIGHT IN PT'S LAP. ROOM WITHIN VIEW OF NURSES STATION.
--- NOTE | 2017-12-03 00:15 | NUR ---
PT RESTING IN BED WITH EYES CLOSED. RESPIRATIONS EVEN AND UNLABORED. PT APPEARS TO BE SLEEPING. CALL LIGHT WITHIN PT REACH, ROOM WITHIN VIEW OF NURSES STATION.
--- NOTE | 2017-12-03 02:33 | NUR ---
PT RESTING IN BED WITH EYES CLOSED. RESPIRATIONS EVEN, UNLABORED, SHALLOW. PT SNORING AUDIBLY FROM DOORWAY. PT APPEARS TO BE SLEEPING. PT DOES NO WAKE WHILE HOME HEALTH OCCUPATIONAL THERAPIST IN DOORWAY. CALL LIGHT SOPHIE PT'S REACH, ROOM WITHIN VIEW OF NURSES STATION.
--- NOTE | 2017-12-03 09:16 | NUR ---
PT IS IN BED TAKING A BREATHING TREATMENT, WHEEZES THROUGHOUT L LUNG CUMMINS, TOLERATED WELL, COMPLAINS OF INTERMITTENT SOB. PT IS TRANSFERRED TO CHAIR WITH ASSIST. PT MOVING BETTER TODAY. PT HAS NO DISTRESS, TAKING PILLS CRUSHED IN APPLESAUCE. THICKENER PLACED WITH WATER. PT IS COUGHING INTERMITTENTLY, NON PRODUCTIVE. WILL CONTINUE TO MONITOR.
--- NOTE | 2017-12-03 12:47 | NUR ---
PT IS UP TO CHAIR AND HAS HAD FAMILY VISITING AT BEDSIDE FOR MOST OF THE MORNING. UPDATED FAMILY ON PT CONDITION. PT HAS HAD NO CHANGES IN CONDITION, HAS NOT REQUESTED PRN MEDS THIS AM. WILL CONTINUE TO MONITOR.
--- NOTE | 2017-12-03 13:30 | NUR ---
HELPED PATIENT WALK WITH WALKER FROM CHAIR AND BACK TO HER BED.
--- NOTE | 2017-12-03 17:17 | NUR ---
pt showered. pt sitting up in bed eating dinner. pt has no needs at this time. call light within reach.
--- NOTE | 2017-12-03 18:36 | NUR ---
DRESSING TO L ELBOW WAS SLIGHTLY SOILED, GREEN DRAINAGE, REMOVED AND REPLACED WITH FRESH ALLEVYN. PT HAS BEEN RESTING IN BED AND WATCHING TV THIS AFTERNOON. NO CHANGES IN CONDITION.
--- NOTE | 2017-12-03 18:37 | NUR ---
PT HAS HAD INCREASED WHEEZING THIS SHIFT, BUT IS MOVING BETTER. PT HAS HAD SHOWER WITH COMMUNICATIONS DIRECTOR ASSIST. PT UP TO CHAIR FOR MEALS. PT HAS NOT REQUESTED PRN PAIN MANAGEMENT THIS SHIFT.
--- NOTE | 2017-12-03 19:00 | NUR ---
BEDSIDE REPORT RECEIVED FROM OFFGOING RN. PT LYING IN BED WITH EYES CLOSED, APPEARS TO BE SLEEPING. CALL LIGHT WITHIN REACH.
--- NOTE | 2017-12-03 21:37 | NUR ---
PT ASSISTED UP TO BATHROOM AND BACK TO BED WITH 1 PA AND FWW. PT TOLERATED WELL, DENIES OTHER NEEDS, CALL LIGHT WITHIN REACH. ROOM WITHIN VIEW OF RN STATION.
--- NOTE | 2017-12-03 23:10 | NUR ---
V/S AND I&O DONE AND CHARTED. CALL LIGHT AND BEDSIDE TABLE IN REACH. PATIENT STATED DONT NEED ANYTHING AT THIS TIME.
--- NOTE | 2017-12-04 00:10 | NUR ---
PT WAKES, USES CALL LIGHT TO REQUEST EEYE DROPS. PT ASSESSMENT COMPLETE. PT DENIES PAIN, NAUSEA. PT RATES SOB AT BASELINE. CHRONIC O2 IN PLACE. PT REQUESTS DRINK OF WATER, C/O NECTAR THICK LIQUID. EDUCATION PROVIDED REGARDING NEED FOR NECTAR THICK TO PREVENT ASPIRATION. PT STATES UNDERSTANDING. PT DENIES FUTHER NEEDS AT THIS TIME. CALL LIGHT WITHIN REACH.
--- NOTE | 2017-12-04 01:53 | NUR ---
PT RESTING IN BED WITH EYES CLOSED, SNORING AUDIBLY FROM THE DOORWAY. PT DOES NOT WAKE WHILE COMMUNITY MUSIC THERAPIST IN DOORWAY, APPEARS TO BE SLEEPING. CALL LIGHT WITHIN REACH.
--- NOTE | 2017-12-04 05:24 | NUR ---
PT RESTING IN BED WITH EYES CLOSED. RESPIRATIONS EVEN AND UNLABORED. PT APPEARS TO BE SLEEPING. CALL LIGHT WITHIN REACH, ROOM WITHIN VIEW OF RN STATION.
--- NOTE | 2017-12-04 05:26 | NUR ---
PT SLEPT WELL THIS SHIFT. LUNGS CLEAR THIS SHIFT. O2 @ 2LPM CHRONIC. SOB @ BASELINE PER PT. PT/OT/ST. CARDIAC CHOPPED DIET, NECTAR THICK LIQUIDS. 1 PA WITH FWW. NO IV ACCESS.
--- NOTE | 2017-12-04 09:10 | NUR ---
PT LYING COMFORTABLY IN BED. BP TAKEN BEFORE CARDIAC MEDS ADMINISTERED. SBP 134. NO PAIN AT THIS TIME. BRUISING NOTED ON 4TH AND 5TH TOES ON RIGHT FOOT. DARK COLOR. LIKELY OLD AND HEALING FROM PRIOR FALL. NO PAIN. GLASSES ON PATIENT.
--- NOTE | 2017-12-04 10:22 | NUR ---
HELPED PATIENT TO BATHROOM AND PLACED PATIENT UP IN CHAIR. BED WAS MADE. PLANT BREEDER SCIENTIST TAKING VITALS WHILE PATIENT WAS IN CHAIR, WAITING FOR PT TO ARRIVE.
--- NOTE | 2017-12-04 10:30 | NUR ---
PATIENT UP TO CHAIR FROM BATHROOM. 1 PERSON ASSIST. CALL LIGHT IN REACH. NO FURTHER NEEDS AT THIS TIME.
--- NOTE | 2017-12-04 12:10 | NUR ---
UPDATED DIET ORDER TO REFLECT SUGGESTION FROM YAHIR, SPEECH THERAPIST. TO ADD THIN LIQUIDS IN BETWEEN MEALS, BECAUSE OF PATIENTS IMPROVING CONDITION.
--- NOTE | 2017-12-04 13:40 | NUR ---
PATIENT SITTING IN CHAIR. CALL LIGHT IN REACH. NO FURTHER NEEDS AT THIS TIME.
--- NOTE | 2017-12-04 14:11 | NUR ---
PT SITTING IN CHAIR WITH VISITOR IN . PT MENTIONED THAT SHE DID NOT SLEEP WELL, BUT WAS DOING OK TODAY. COMMENTED ON HER "CHOPPED" DIET. WAS LIGHT HEARTED REGARDING IT. PT REQUESTED PRAYER, WILL FOLLOW NEEDED
--- NOTE | 2017-12-04 17:41 | NUR ---
PATIENT TO BED FROM CHAIR, 1 PERSON ASSIST. FRESH WATER GIVEN. CALL LIGHT IN REACH. NO FURTHER NEEDS AT THIS TIME.
--- NOTE | 2017-12-04 17:50 | NUR ---
ROUNDED ON PATIENT WHO WAS SITTING COMFORTABLY IN CHAIR. WITH HELP FROM [employer] MEDIATION COMMISSIONER, PATIENT WAS MOVED TO BED AND IS NOW RELAXING COMFORTABLY. POSSESSIONS AT BEDSIDE. NO COMPLAINTS OF PAIN. PATIENT ALSO DECLINED PM STOOL SOFTENERS.
--- NOTE | 2017-12-04 18:37 | NUR ---
UNEVENTFUL DAY FOR PATIENT. WORKED WITH PT/OT/ST. SPEECH THERAPIST SUGGESTED ADVANCING LIQUIDS TO THIN BETWEEN MEALS. CONTINUE NECTAR THICK WITH MEALS AND CHOPPED CARDIAC DIET. SCDs WHEN IN BED. ELEVATE LEGS D/T EDEMA. 1PA FWW. ALLEVYN TO LEFT ELBOW FROM SKIN TEAR. 2L CHRONIC O2. RR UPPER 20s BASELINE.
--- NOTE | 2017-12-04 19:30 | NUR ---
REPORT RECEIVED FROM TESSY AKBAR. PT RESTING SUPINE IN BED,RR18 ON 2LPNC. ASSESSMENT PERFORMED. PT DENIES HAVING ANY CONCNERNS OR REQUESTS. PT ENCOURAGED TO USE INCENTIVE SPIROMETER 10X PER HOUR WHILE AWAKE AND PT AGREES. PER DAYSHIFT RN PT WAS CLEARED BY SPEECH THERAPY TO BEGIN DRINKING NONTHICKENED LIQUIDS IN BETWEEN MEALS AND PT HAS BEEN DOING WELL WITH NO COUGHING OR SIGNS OF ASPIRATION. CALL LIGHT AND ICE WATER IN REACH.
--- NOTE | 2017-12-04 20:46 | NUR ---
PT REQUESTED AND RECEIVED HER LATANOPROST EYE DROPS. PT RESTING IN BED ON 2LPNC, PT DENIES SOB. CALL LIGHT IN EACH NO FURTHER NEEDS/CONCERNS VOICED.
--- NOTE | 2017-12-05 00:51 | NUR ---
PT RESTING IN BED APPEARS TO BE SLEEPING COMFORTABLY. 2LPNC IN PLACE AND RR 20. CALL LIGTH AND H20 REMAIN IN REACH ADN DOOR OPEN PER PT PRIOR REQUEST.
--- NOTE | 2017-12-05 03:10 | NUR ---
PT UP TO RESTROOM WITH 1 PERSON SBA AND 1PA. PT TOLORATED AMBULATION WELL ONLY REQUIRING ASSISTANCE GETTING UP INTO BED. CALL LIGHT AND FRESH WATER IN REACH.
--- NOTE | 2017-12-05 05:17 | NUR ---
PT APPEARED TO HAVE SLEPT WELL THROUGH THE NIGHT. PT STATES "I'M FEELING MUCH BETTER AND WAN'T TO DO MUCH I CAN MYSELF" PT EAGER TO GIVE HER BEST EFFORT GETTING IN AND OUT OF BED AND IS SBA WITH 1PA AND FWW. PT HAS VOIDED QS CLEAR YELLOW URINE AND IS TOLORATING NONTHICKENED LIQUIDS IN BETWEEN MEALS WELL WITH NO COUGHING OR SIGNS OF ASPIRATION NOTED. PT HAS TOLORATED SCD'S WELL THIS SHIFT AND HAS SATTED IN LOW TO MID 90'S ON 2LPNC WITH SOB ONLY AT EXERTION. PT CONTINUES TO RECEIVE SCHEDULED NEB TX'S. PT DID NOT REPORT PAIN WITH AMBULATION AND APPEARED TO TOLORATE CHANGES IN POSITION WELL.
--- NOTE | 2017-12-05 07:10 | NUR ---
SHIFT REPORT RECEIVED FROM RECOVERY AUDITOR RN. PATIENT RESTING IN BED, RESPIRATIONS EVEN AND UNLABORED. CALL LIGHT WITHIN REACH.
--- NOTE | 2017-12-05 09:30 | NUR ---
PATIENT UP TO CHAIR FROM BATHROOM WITH STANDBY ASSIST WITH FWW. TALKED TO PATIENT ABOUT A SHOWER TODAY. CALL BUTTON IN REACH. NO OTHER NEEDS AT THIS TIME.
--- NOTE | 2017-12-05 09:45 | NUR ---
MORNING ASSESSMENT AND ROUTINE MEDICATIONS ADMINISTERED AT THIS TIME. LUNG SOUNGS CLEAR BILATERALLY, S1 AND S2 NOTED. BOWEL TONES ACTIVE IN ALL FOUR QUADRANTS. BILATERAL LOWER EXTREMITY EDEMA NOTED. PT IN ROOM WITH PATIENT PREPARING TO AMBULATE IN HALLWAY.
--- NOTE | 2017-12-05 11:15 | NUR ---
PATIENT SITTING UP IN CHAIR WITH FEET UP. PATIENT WASHED HER HANDS AND FACE. NO OTHER NEEDS AT THIS TIME. CALL BUTTON IN REACH.
--- NOTE | 2017-12-05 11:50 | NUR ---
PATIENT UP TO BATHROOM, ONE PERSON ASSIST WITH USE OF FWW. PATIENT RETURNED TO CHAIR, AWAITING LUNCH. PATIENT DENIED SOB OR DYSPNEA. CALL LIGHT WITHIN REACH, NO OTHER REQUESTS AT THIS TIME.
--- NOTE | 2017-12-05 12:30 | NUR ---
PATIENT SITTING UP IN CHAIR EATING LUNCH AND VISITING WITH FRIEND IN ROOM. PATIENT STATES THAT SHE WOULD LIKE TO SKIP THE SHOWER DUE TO HER GOING HOME THIS AFTERNOON.
--- NOTE | 2017-12-05 12:50 | NUR ---
PT SITTING IN CHAIR, SEEMING MORE ALERT TODAY. PT MENTIONED THAT SHE THINKS SHE WILL BE DC'D TOMORROW. EXTENDED A BLESSING, WILL FOLLOW NEEDED
[2017-12-05] MEDS ORDERED: NORVASC10 MG PO (14:04)
[2017-12-05] MEDS ORDERED: BISACODYL5 MG PO (14:06)
[2017-12-05] MEDS ORDERED: MIRALAX17 GM PO (14:06)
--- NOTE | 2017-12-05 16:12 | NUR ---
FAXED CHART NOTES INCLUDING FACESHEET, ORDER, H AND P, AND DC SUMMARY TO [facility] FOR RN AND PT. TALKED TO [facility] ABOUT THIS PT. RECIEVED FAX CONFIRMATION.
== END 2017-12-05 16:14 | disposition home or self-care (01) | DRG 948 ==
LOC: MS 11:20
PROVIDERS: ADMIT Internal Medicine
DX: R53.81 Other malaise (principal); J96.11 Chronic respiratory failure with hypoxia; M62.82 Rhabdomyolysis; R25.1 Tremor, unspecified; J44.9 Chronic obstructive pulmonary disease, unspecified; Z85.3 Personal history of malignant neoplasm of breast; H40.9 Unspecified glaucoma; Z99.81 Dependence on supplemental oxygen; W19.XXXA Unspecified fall, initial encounter; R13.12 Dysphagia, oropharyngeal phase; I10 Essential (primary) hypertension; K59.00 Constipation, unspecified
CPT/HCPCS: 92610; 94640; 97110; 97116; 97165; 97535

== ENCOUNTER 2020-01-29 09:42 | Inpatient (IN) | payer MEDICARE, OTHER ==
[~2020-01-29] VITALS: Ht 157.5 cm; Wt 68.7 kg
[~2020-01-29 09:42] MED LIST changes: +BISACODYL5 MG PO; -BUDESONIDE0.25 MG/2 INH; +BUDESONIDE0.5 MG/2 M INH; +CALCIUM 600 +1 EAC4 PO; -CALCIUM500 MG PO; +METAMUCIL660 GM PO; +MIRALAX17 GM PO; +NORVASC10 MG PO; -VITAMIN D1000 UNIT PO; +VITAMIN D325 MCG PO
[2020-01-29] MEDS ORDERED: FISH OIL 1,0001 EAC2 PO (09:53)
[2020-01-29] MEDS ORDERED: FUROSEMIDE20 MG PO (09:54)
[2020-01-29] MEDS ORDERED: OXYBUTYNIN CHLO10 MG PO (09:59)
[2020-01-29] MEDS ORDERED: K-TAB ER20 MEQ PO (10:09)
[2020-01-29] MEDS ORDERED: TURMERIC 450-51 EACH PO (10:09)
[2020-01-29] MEDS ORDERED: VENTOLIN HFA18 GM INH (10:10)
--- NOTE | 2020-01-29 17:43 | NUR ---
New admit to the floor. Pt alert and oriented x4, respirations even and non labored. 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 Provider Service Representative are equal in upper and lower extremities. Dinner ordered at this time. Pt's vital signs are stable. Pt on 2l of chonic 02 per nc. No needs. Call light within reach.
--- NOTE | 2020-01-29 19:32 | NUR ---
RECEIVED REPORT FROM IMAN STILL. pt RESTING IN BED. TOOK A PHONE CALL. NO REQUESTS AT THIS TIME. CURTAIN OPEN TO NURSES STATION. IVF INFUSING. WHITEBOARD UPDATED. CALL LIGHT WITHIN REACH.
--- NOTE | 2020-01-29 20:00 | NUR ---
2 PA TO USE THE BEDSIDE COMMODE AND BACK TO BED USIGN WALKER. PATIENT VOIDED 250 ML. CALL LIGHT WITHIN PATIENT'S REACH. WARM BLANKET PROVIDED.
--- NOTE | 2020-01-29 21:08 | NUR ---
IN TO DO ASSESSMENT. pt WOKE TO VOICE. VITALS AND I&O RECORDED. ASSESSMENT DONE. pt DENIED PAIN AND REFUSED PAIN MEDICATION AT THIS TIME. LOWER DENTURES REMOVED AND CLEANED. PM CARES DONE. NO FURTHER REQUESTS AT THIS TIME. CALL LIGHT WITHIN REACH.
--- NOTE | 2020-01-29 22:28 | NUR ---
pt ATTEMPTING TO CALL. IN TO ASSIST. pt REQUESTED TO GET UP TO VOID, 2PA FWW. BACK TO BED. pt SOB. REPORTED NORMAL FOR HER. REQUESTED NEB TREATMENT. RT INFORMED, IN ROOM.
--- NOTE | 2020-01-29 22:46 | NUR ---
ROUNDED ON pt. RESTING WITH EYES CLOSED, RESPIRATIONS REGULAR AND UNLABORED. CALL LIGHT WITHIN REACH.
--- NOTE | 2020-01-29 23:08 | NUR ---
CALL LIGHT ON. pt REQUESTED PAIN MEDICATION. GAVE SCHEDULED DOSE THAT WAS REFUSED EARLIER. pt HAD DIFFICULTY SWALLOWING PILL. PROVIDED A CUP WITH A SMALLER STRAW. EASIER FOR pt TO SWALLOW. pt REPORTED THIS WAS "NORMAL", DID COUGH AFTER DRINKING WATER. O2 SAT 93% ON 2L O2. NO CHANGE IN WORK OF BREATHING OR LUNG SOUNDS. ADJUSTED BED FOR COMFORT. NO FURTHER REQUESTS AT THIS TIME. CALL LIGHT WITHIN REACH.
--- NOTE | 2020-01-30 00:41 | NUR ---
ROUNDED ON pt. RESTING WITH EYES CLOSED, RESPIRATIONS REGULAR AND UNLABORED. CALL LIGHT WITHIN REACH. IV BOLUS INFUSION COMPLETED. IVF INFUSING PER ORDERS.
--- NOTE | 2020-01-30 02:29 | NUR ---
IN TO DO VITALS AND ASSESSMENT. pt RESTING IN BED. 2PA FWW TO BSC. pt HAD DESAT WHEN IN BED, INCREASED O2 TO 4L WHILE MOVING. ONCE BACK IN BED O2 SATS MAINTAINED ON CHRONIC 2L, MID 90'S. ASSESSMENT DONE. CRACKLES NOTED IN BASES. pt REPORTED 4/10 PAIN, "OKAY" AT THIS TIME. PROVIDED WARM BLANKET. NO FURTHER REQUESTS AT THIS TIME. CALL LIGHT WITHIN REACH.
--- NOTE | 2020-01-30 02:38 | NUR ---
2PA PRIMARY POULTRY DRESSING WORKER FIONA AND THIS QUILL MACHINE TENDER HELPED PATIENT USED THE BEDSIDE COMMODE USING WALKER. PATIENT VOIDED 200CC. PATIENT IS BACK IN BED. CALL LIGHT ON PATIENT'S HAND.
--- NOTE | 2020-01-30 04:17 | NUR ---
ROUNDED ON pt. RESTING WITH EYES CLOSED, RESPIRATIONS REGULAR AND UNLABORED. CALL LIGHT WITHIN REACH.
--- NOTE | 2020-01-30 05:45 | NUR ---
LAB COMPLETED DRAW. VITALS AND I&O RECORDED. pt REPORTED "I'M NOT BREATHING TOO WELL." REQUESTED A BREATHING TREATMENT, RESPIRATORY THERAPY INFORMED. pt REPORTED IT WAS HER "NORMAL" SOB. O2 90 ON 2L. DECLINED TO TOILET AT THIS TIME. CALL LIGHT IN HAND.
--- NOTE | 2020-01-30 05:46 | NUR ---
PATIENT DOES NOT WANT TO GET UP TO USE THE BATHROOM PER PRIMARY AUTOMATION CONSULTANT FIONA.
--- NOTE | 2020-01-30 07:06 | NUR ---
REPORT RECEIVED FROM TESSY JAIMES. PT RESTING WITH EYES CLOSED, AWAKENS TO VOICE. PT RECOGNIZES THIS RN BUT IS VERY DROWSY FALLING QUICKLY BACK TO SLEEP AFTER REPORTING THAT SHE IS COLD. WARM BLANKE PROVIDED. PT ALLOWED TO REST. BED RAILS UP. CALL LIGHT WITHIN REACH.
--- NOTE | 2020-01-30 08:19 | NUR ---
MORNING ASSESSMENT AND MEDICATION DUE. PT RESTING IN BED WITH EYES CLOSED, RR = 24. PT AWAKENS TO VOICE. VITALS TAKEN. PT REPORTS 3/10 BACK PAIN AND DENIES NAUSEA. 2 PERSON ASSIST UP TO BEDSIDE COMODE. PT WEAK BUT ABLE TO ASSIST WITH TRANSFERS. RISHI CARE DONE. DEPENEDS CHANGED. PT VERY SHORT OF BREATH WITH ACTIVITY, EXPIRATORY WHEEZES NOTED, CRACKELS NOTED IN LOWER LOBES. RT CALLED. INHALER GIVEN. RR INCREASES TO 32 WITH ACTIVITY. MD CONSULTED, ORDERS PLACED TO STOP IV FLUIDS. VITALS TAKEN. PT NOTED TO HAVE DIFFICULTY SWALLOWING TYLENOL PILL. COUGHS AND CLEAR THROAT FREQUENTLY. BED SIDE SWALLOW EVALUATION COMPLETED. PT HAS NO TROUBLES WITH WATER BUT CONTINUES TO HAVE TROUBLE WITH PILLS. MEDICATIONS CRUSSED AND GIVEN WITH APPLESAUCE. PT HAS DIFFICULTIES WITH APPLESAUCE WELL STATING "ITS STUCK IN MY THROAT." PT REMAINS UP TO CHAIR. CALL LIGHT TAYIN REACH. IV SALINE LOCKED. O2 AT 93% ON 2L O2 BY NC PER BASELINE. NO ADDITIONAL REQUESTS OR COMPLAINTS. CALL LIGHT WITHIN REACH.
[2020-01-30] MEDS ORDERED: PERFOROMIS20 MCG/2 M INH (08:20)
[2020-01-30] MEDS ORDERED: ALBUTEROL0.63 MG/3 INH (08:22)
--- NOTE | 2020-01-30 08:47 | NUR ---
PATIENT IN CHAIR. NURSE IN THE ROOM. NO FURTHER NEEDS AT THIS TIME. CALL LIGHT WITHIN REACH.
--- NOTE | 2020-01-30 09:18 | NUR ---
THIS RN TO ROOM TO CHECK ON PT. PT EATING BREAKFAST. PT HAVING DIFFICULTY WITH GUTHRIE AND TOAST. GUTHRIE AND TOAST REMOVED FROM BREAKFAST TRAY. PT ENCOURAGED TO EAT HER YOGURT INSTEAD, PT REPORTS YOGUT IS "EASIER TO SWALLOW." PTS SON, RUBEN, CALLED FOR UPDATED. RUBEN UPDATED ON PTS PLAN OF CARE AND CONDITION THIS MORNING. RUBEN STATES PT HAS HAD TROUBLE SWALLOWING "FOR QUITE A WHILE." CALL TRANSFERED INTO PTS ROOM, PT TALKING WITH SON ON THE PHONE. CALL LIGHT WITHIN REACH. PT EASILY VIEWED FROM NURSES STATION.
--- NOTE | 2020-01-30 10:04 | NUR ---
PATIENT WORKED WITH OT. I&O'S DOCUMENTED. NURSE IN THE ROOM. NO FUTHER NEEDS AT THIS TIME
--- NOTE | 2020-01-30 10:07 | NUR ---
THIS RN CALLED TO BEDSIDE. PT HAVING EMESIS EPISODE. 250ML YELLOW EMESIS WITH UNDIGESTED FOOD NOTED. PT REPORTS SHE FEELS "BETTER" AFTER THE EMESIS. ZOFRAN GIVEN. SPEECH PATHOLOGIST TO BEDSIDE FOR SWALLOW EVALUATION. NO ADDITIONAL REQUESTS OR COMPLAINTS AT THIS TIME. CALL LIGHT WITHIN REACH.
--- NOTE | 2020-01-30 10:26 | NUR ---
MD CONSULTED AFTER SWALLOW EVALUATION. BARIUM SWALLOW STUDY ORDERED, PT MADE NPO AT THIS TIME. PT UPDATED ON PLAN OF CARE AND VERBALIZES UNDERSTANDING. PT STATES SHE WOULD LIKE TO REST. CALL LIGHT WITHIN REACH. PT EASILY VIEWED FROM NURSES STATION.
--- NOTE | 2020-01-30 10:37 | NUR ---
PT CALL LIGHT ON. PT REQUESTS ASSISTANCE UP TO RESTROOM. 1 PERSON HEAVY ASSIST UP TO BEDSIDE COMODE. PT SHORT OF BREATH WITH ACTIVITY. RISHI CARE DONE. DEPENDS CHANGED. PT BACK TO BED. WARM BLANKETS PROVIDED. BED RAILS UP. CALL LIGHT WITHIN REACH.
--- NOTE | 2020-01-30 11:00 | NUR ---
WARD AIDE reports that pts oxygen saturation is at 88% on 2L NC. In room to assess. Pt oxygenation was titrated to 3L NC by Gladys STILL. No improvement on saturations after about 45 seconds on 3L. Pt then sat up in bed to reduce effort of breathing, no improvement in oxygenation at this point either. Pt then asked to cough, about 20-30 seconds after coughing, pts saturation reached 90-92% on 3L. Pt then titrated back to 2L, returning to 89-90% oxygen. RT called by Gladys STILL. Will continue to assess. Pt in bed, side rails up, table and call light within reach.
--- NOTE | 2020-01-30 11:01 | NUR ---
SENIOR PATROL AGENT CALLS THIS RN TO BEDSIDE STATING PTS O2 SATURATION IS 88%. THIS RN TO BEDSIDE. O2 MAINTAINING AT 88% ON 2L O2 BY NC. O2 INCREASED TO 3L WITH NO IMPROVMENT. PT REPOSITIONED AND ASKED TO COUGH. O2 SATRUATION IMPROVES TO 92% AFTER COUGH WHILE ON 2 L O2 BY NC. COUGH NOTED TO BE WEAK. RT CALLED FOR CONSULTATION. PT RESTING IN BED. PT REMAINS ON 2L O2 BY NC AT THIS TIME WITH O2 SATURATIONS FROM 88-92%. NO ADDITIONAL REQUESTS OR COMPLAINTS. CALL LIGHT WITHIN REACH. BED RAILS UP. PT EASILY VEIWED FROM NURSES STATION.
--- NOTE | 2020-01-30 11:05 | NUR ---
UPDATED ON PTS STATUS AND CHANGE IN OXYGENATION. CHEST X-RAY ORDERED. IMAGING DEPARTMEN CALLED.
--- NOTE | 2020-01-30 11:22 | NUR ---
THIS RN TO ROOM WITH MD FOR ROUNDS. PT TITRATED UP TO 3L O2 BY NC AND REMAINS THERE PER MD VERBAL ORDER. PT DROWSY AND FALLING ASLEEP BETWEEN QUESTIONS. NEW ORDERS PLACED. PT MAINTAINING O2 BETWEEN 88 AND 95%. X-RAY TECHNITIANS ARRIVED. 2 PERSON ASSIST UP TO WHEEL CHAIR. O2 IN PLACE. TESSY LEO, GOING WITH PT TO X-RAY DEPARTMENT.
--- NOTE | 2020-01-30 11:45 | NUR ---
Accompanied pt and techs to x-ray. Pt was positioned as needed for x-rays. While in x-ray we were notified that pt was to be put on precautions and moved into a new negative-pressure room once she returns to the floor. Pt returned to floor, to her new room.
--- NOTE | 2020-01-30 12:00 | NUR ---
In room for leung catheter placement. Pt informed of placement reason and process. Pt verbalizes understanding. Was able to place leung on first attempt using proper sterile technique. Leung began filling with clear yellow urine. Pt reports no pain or nausea at this time. Pt left lying in bed, side rails up, table and call light within reach.
--- NOTE | 2020-01-30 12:05 | NUR ---
In room for pt assessment and care. Pt moved to room 117 after her xrays. Pt in room and vitals taken. VSS. Pt oxygen saturation is 94% on 3L NC. CPOX started per orders. Pt assessment completed, lungs sounded very diminished, and had adventitious sounds in the lower right lobe. Pt reports no pain or nausea at this time. Pt on NPO status. See charting for more on her assessment. Pt lying in bed, side rails up, bed in lowest position, table and call light within reach.
--- NOTE | 2020-01-30 12:20 | NUR ---
In room for pt med pass. Pt was started on ABX per orders. Pt IV draws with some difficulty, flushed easily. Pt meds given and ABX started. Pt reports no pain or nausea at this time. Pt left lying in bed, side rails up, table and call light within reach.
--- NOTE | 2020-01-30 13:20 | NUR ---
PT MOVED TO RM 117-NEG PRESSURE. AGP IN PROGRESS NOW WILL FOLLOW NEEDED
--- NOTE | 2020-01-30 13:40 | NUR ---
PATIENT LAYING IN BED. VITAL SIGNS AND I&O'S DOCUMENTED. NO FUTHER NEEDS AT THIS TIME. CALL LIGHT WITHIN REACH
--- NOTE | 2020-01-30 13:42 | NUR ---
MEDICATION DUE. THIS RN TO BEDSIDE. PT AWAKENS TO VOICE AND MOVEMENT IN ROOM. PT ORIENTED TO CALL. PT UPDATED ON PLAN OF CARE AND VERBALIZES UNDERSTANDING. IV ABX INFUSION COMPLETE. LASIX GIVEN. IV SALINE LOCED AT THIS TIME. MOUTH SWABS PROVIDED FOR PTS DRY MOUTH. PT FALLS QUICKLY BACK TO SLEEP. PULSE OX READS 90-95% ON 3L O2 BY NC. NO ADDITIONAL REQUESTS OR COMPLAINTS. CALL LIGHT WIHTIN REACH. BED RAILS UP.
--- NOTE | 2020-01-30 14:40 | NUR ---
In room for rounding. Pt was lying in bed, eyes closed, breathing even and minimally labored. This RN to bedside. Pt opened her eyes and startled to my touch and greeting. Pt was alert and oriented, reporting no pain or nausea at this time. Pt was somewhat groggy during conversation. Pt able to grab mouth swabs and swab around her mouth without assistance. Pt left lying in bed, side rails up, bed in lowest position, table and call light within reach.
--- NOTE | 2020-01-30 15:45 | NUR ---
Attempted to see pt for assessment. She is sleeping, has received neb tx. Update per RN's pt is somewhat confused. Will attempt to call her emergency contact for information.
--- NOTE | 2020-01-30 15:50 | NUR ---
THIS RN TO ROOM FOR AFTERNOON ASSESSMENT WITH TESSY LEO. PT MAINTAINING O2 SATURATIONS FROM 89-92% ON 3L O2 BY NC. PT REPORTS SHORTNESS OF BREATH, MINOR PAUSING BETWEEN WORDS OF SENTANCES NOTED. PT ABLE TO REPEAT BACK 8 WORD SENTANCE WITHOUT PAUSE. PT CONTINUES TO BE VERY LETHARGIC. ORIENTED TO ALL. PT REQUESTS THAT HER FRIEND GAYE BE CALLED AND TOLD THAT SHE IS AT THE HOSPITAL. PT SUPPLIED NUMBER FOR HER FRIEND. GAYE CALLED AND TOLD THAT PT IS IN THE HOSPITAL. GAYE ADVISED THAT ADDITIONAL INFORMATION WILL NEED TO BE OBTAINED FROM THE PT. OFFERED TO FORWARD CALL INTO THE PTS ROOM, GAYE STATES SHE WILL CALL BACK AT A LATER TIME. TESSY LEO WORKING WITH PT. NO ADDITIONAL REQUESTS OR COMPLAINTS. CALL LIGHT WITHIN REACH.
--- NOTE | 2020-01-30 15:55 | NUR ---
In room for afternoon assessment. Pt lying in bed, alert and pleasant upon greeting. Pt still somewhat groggy. Pt reports no pain or nausea at this time. Pt informed of MD medication change to rectal med, pt verbalizes understanding. New IV started in pts L-FA, first try, WNL, draws and flushes with ease. Pt assessment done, lungs still sound diminished and now somewhat tight in lower lobes, see charting. Pt left lying in bed, bed in lowest position, side rails up, table and call light within reach.
--- NOTE | 2020-01-30 17:23 | NUR ---
In room for rounding. Pt lying in bed. Pt reports no pain or nausea at this time. Pts face cleansed with wet wipes, mouth refreshed with lemon swabs. Pt reports no other needs at this time. Pt left lying in bed, side rails up, table and call light within reach.
--- NOTE | 2020-01-30 17:35 | NUR ---
PATIENT RESTING IN BED. VITAL SIGNS AND I&O'S DOCUMENTED. NO FURTHER NEEDS AT THIS TIME. CALL LIGHT WITHIN REACH.
--- NOTE | 2020-01-30 17:46 | NUR ---
Pt came in to ED for a fall and back pain, admitted and treatment for metabolic encephalopathy. Pt had felt like her normal self until sometime 01/28/20, then she woke up 01/29/20 feeling general malaise and weakness. Pt is on 3L NC at present, which was titrated up from 2L NC this morning. Pt had a chest x-ray done today and results showed some pleural effusions. Potential pneumonia, azythromycin given today. Covid test pending. Pt has been groggy and sleeping much of the day. Up to commode and chair this morning a few times, showing activity intolerance with hypoxia. Pt had trouble swallowing her crushed meds in applesauce this morning, pt vomitted sometime after. Speech therapist did a swallow eval and suggested NPO until swallow study can be done. Pt put on NPO. Pt moved to room 117 to get nebulizer treatments and await covid test results. Pt had leung placed today and has been putting out clear yellow urine, quantity sufficient. Pt had lemon swabs at bedside.
--- NOTE | 2020-01-30 17:50 | NUR ---
CALL MADE TO RUBEN, PTS SON FOR UPDATE. NO ANSWER AT THIS TIME.
--- NOTE | 2020-01-30 18:09 | NUR ---
DON, PTS SON RETURNED CALL. DON UPDATED ON PTS STATUS. DON VERBALIZES UNDERSTANDING AND STATES HIS QUESTIONS HAVE BEEN ANSWERED. PT CALL LIGHT ON. PT REQUESTS ASSISTANCE WITH COVERING UP WITH BLANKETS. ROOM TEMPERATURE INCREASED TO 72 DEGREES. BLANKETS PROVIDED. PT DENIES ADDITIONAL REQUESTS OR COMPLAINTS. O2 AT 92% ON 2L O2 BY NC. CALL LIGHT WITHIN REACH. BED RAILS UP.
--- NOTE | 2020-01-30 20:45 | NUR ---
GOT TO PT RM, PT WAS CALLING TO GET BOOSTED UP IN BED, C/O LAYING IN THE SAME POSTITON ALL DAY, BOOSTED PT UP, ADJT PILLOWS, VITALS ARE DONE, RN IN RM FOR ASSESSMENT
--- NOTE | 2020-01-30 23:48 | NUR ---
turned r side, on 3l nc, no resp distress, eye closed, legs elevated. call light at bedside
--- NOTE | 2020-01-31 01:46 | NUR ---
WITH RN, CAME TO PT RM, BOOSTED PT UP IN BED, PILLOWS ON BOTH SIDES ADDED FOR PT COMFORT, PILLOW PLACED UNDER LEGS AND HEEL PROTECTERS PUT ON, NO FURTHER REQUESTS AT THIS TIME
--- NOTE | 2020-01-31 03:12 | NUR ---
PT CALLED, "ALARM IS BEEPING AT ME" RN CHECKED ON PT AT FIRST, CPOX ALERTING TO DESAT, RN HELPED PT ADJ POSTITION, O2 INCREESED, PT CALLED AGAIN, THIS SUPERVISING ARCHITECT CHECKED ON PT, NO ALARMS AT THIS TIME, INFORMED PT TO BREATH DEEPLY IF CPOX STARTS TO ALARM IN THE FUTURE, PT NEEDED ORAL SPONGE AND PROVIDED CHAPSTICK, NO FURTHER REQUEST AT THIS TIME, INFORMED RN OF O2 READING, ROUNDING OF PT CONFERMS SAT OF 90 AT THIS TIME
--- NOTE | 2020-01-31 03:39 | NUR ---
O2 3L NC, CPOX IN PLACE, CALL TATA AT [facility],
--- NOTE | 2020-01-31 06:17 | NUR ---
Pt in bed, waiting for Covid lab results, On 3L NC, NPO for am procedure, barium swallow. cpox in place. mouth care done, coop. no further c/o h/a, declined to use Tylenol supp earlier in shift. Turned q2h. coop. f/c patent, draining qs. edema le, elevated. fall/aspiration precautions in place, alert and [id number], follows instructions well
--- NOTE | 2020-01-31 08:45 | NUR ---
PT IS ALERT, ABLE TO SIT UP ON EDGE OF BED WITH MIN ASSIST, LINENS CHANGED, DENIES ANY RESP DISTRESS, MAINTAING OXIMETER 95-97% ON RA. KEEPS ASKING TO ORDER BREAKFAST, WILL CHCK TO SEE WHEN SWALLOW EVAL IS SCHEDULED. PYSICAL THERAPY IN TO WORK WITH PT ALSO.
--- NOTE | 2020-01-31 09:03 | PATH ---
[facility] [address], [place] [address] Signed ORDERING PHYSICIAN: Juan Terrell MD PATIENT NAME: CARLOS TOLEDO GENDER: F : 1930 Prior History: No cases found. SPECIMEN(S): MOLECULAR PATHOLOGY RESULTS: SARS-CoV-2 Not Detected ADDITIONAL NOTES.: The Hoven Fusion SARS-CoV-2 Assay is a multiplex real-time PCR (RT-PCR) in vitro diagnostic test intended for the qualitative detection of RNA from SARS-CoV-2 from individuals who meet COVID-19 clinical and/or epidemiological criteria. In general, SARS-CoV-2 RNA can be detected during the acute phase of infection. Positive results indicate the presence of SARS-CoV-2 RNA. Clinical correlation with patient history and other diagnostic information is necessary to determine patient infection status. Positive results do not rule out bacterial infection or co-infection with other viruses. Negative results do not preclude SARS-CoV-2 infection and should not be used as the sole basis for patient management decisions. Negative results must be combined with other clinical observations, patient history, and epidemiological information. The Hoven Fusion SARS-CoV-2 Assay is not yet approved or cleared by the [place] FDA. When there are no FDA-approved or cleared tests available, and other criteria are met, FDA can make tests available under an emergency access mechanism called an Emergency Use Authorization (EUA). The EUA for this test is supported by the Group Care Worker of Health and Human Service's (HHS's) declaration that circumstances exist to justify the emergency use of in vitro diagnostics for the detection and/or diagnosis of the virus that causes COVID-19. This EUA will remain in effect for the duration of the COVID-19 declaration justifying emergency of IVDs, unless it is terminated or revoked by FDA, after which the test may no longer be used. The Hoven Fusion SARS-CoV-2 Assay is for use only under EUA PATIENT NAME: CARLOS TOLEDO PATHOLOGY DATE OF : 34 REPORT #: [id number] PHYSICIAN: HAILEY ROB PCP: THERESE JULIO MD REPORT IS CONFIDENTIAL AND NOT TO BE RELEASED WITHOUT AUTHORIZATION [facility] [address] [address] [place], [place] [address] Signed in laboratories certified under the Clinical Laboratory Improvement Amendments of 1988 (CLIA) to perform high complexity tests. [facility] is certified under CLIA to perform high complexity clinical laboratory testing. PERFORMING LABORATORY.: Molecular testing was performed by [facility] [address] [place], [place] [address] [address] (Digital Media Planner: Tyler Matos D.O.; CLIA#: [id number]) Diagnostician: System Interface Pathologist Electronically Signed 01/31/2020 Copies: ~ PATIENT NAME: CARLOS TOLEDO PATHOLOGY DATE OF : 34 REPORT #: [id number] PHYSICIAN: HAILEY ROB PCP: THERESE JULIO MD REPORT IS CONFIDENTIAL AND NOT TO BE RELEASED WITHOUT AUTHORIZATION
--- NOTE | 2020-01-31 09:27 | NUR ---
Attempted to call sonFarzad, last night and this am. Messages left rquesting return call. Pt Covid testing has not been returned at this point.
--- NOTE | 2020-01-31 10:19 | NUR ---
MESSAGE LEFT WITH SPEECH THERAPY OFFICE THAT DR. CURRAN WOULD BE ABLE TO TO BARIUM SWALLOW AT 4PM TODAY.
--- NOTE | 2020-01-31 10:20 | NUR ---
Spoke with pt's son Tomy. Pt lives at [facility]. Consistently uses a walker. Has had difficulty swallowing recently and in the past. Discussed feels she may need placement in a SNF. He feels he will need to discuss with her. Updated [facility] can only take Mar back, if she is independent or a 1 person assist. He plans on seeing his mom today. Spoke with Aidan from PT, pt was able to walk with the walker with assist.
--- NOTE | 2020-01-31 10:34 | NUR ---
PT MOTIVATED AND WORKED WELL WITH PT, ABLE TO AMB IN ROOM WITH SBA AND FWW, SITTING UP IN RECLINER AT THIS TIME, SON UPDATED ON CONDITION AND WILL BE IN TO VISIT. COVID NEG RESULTS IN. CALL LIGHT IN EASY REACH.
--- NOTE | 2020-01-31 11:17 | NUR ---
Spoke with Sammie Pemberton, from [facility]. She gave her cell number, if pt returns to baseline or 1 person assist over the weekend. Pt could return to [facility]. She asks staff or call her if pt is cleared fro discharge. Niecy's cell phone number [phone]. I faxed update of chart note, H&P, and Spine xray per their request.
--- NOTE | 2020-01-31 12:34 | NUR ---
PT HAD JUST RECEIVED AN AGP FROM RT. UNABLE TO VISIT AT THIS TIME
--- NOTE | 2020-01-31 14:45 | NUR ---
PT RESTING ON BED, STATES SHE IS TIRED THIS AFTERNOON, DENIES RESP DISTRESS, OXIMETER 96% ON 2L, TORADOL GIVEN FOR BACK PAIN, REPOSITIONED WITH WARM BLANKETS FOR COMFORT. IVF PATENT, FOOLEY CATH SECURE. CALL LIGHT IN EASY REACH.
--- NOTE | 2020-01-31 16:14 | NUR ---
PT SENT FOR BARIUM SWALLOW ELVAL AT THIS TIME.
--- NOTE | 2020-01-31 16:50 | NUR ---
PT RETURNED FROM SWALLOW EVAL TO ROOM IN [facility] [employer], ABLE TO STAND AND PIVOT FROM WC TO BED, OK NOW TO HAVE SOFT DIET, PT WANTS [employer] FOR DINNER, KITCHEN NOTIFIED. RESTING COMFORTABLY ON BED, CALL LIGHT IN EASY REACH.
--- NOTE | 2020-01-31 18:14 | NUR ---
DONNA IN TO VISIT, BROUGHT LATANOPROST EYE DROPS FROM HOME, PLACED IN PT TOWER TO GET ORDER, PT EATING [employer] DINNER, IN [facility] [employer], IV SITE WAS LEAKING, RESTARTED INTO RFA. CALL LIGHT IN EASY REACH.
--- NOTE | 2020-01-31 18:58 | NUR ---
ATE 25% OF DINNER, CONT. TO DENY NAUSEA, WATCHING NEWS PROGRAM AT THIS TIME.
--- NOTE | 2020-01-31 19:10 | NUR ---
RECEIVED REPORT FROM TESSY MCNAIR. pt RESTING IN BED WATCHING TV. REPORTED HER PAIN IS "IMPROVED" NO REQUESTS AT THIS TIME. CALL LIGHT WITHIN REACH.
--- NOTE | 2020-01-31 19:20 | NUR ---
MD CALLED, UPDATED ON pt CONDITION. ORDER ENTERED FOR SOFT DIET.
--- NOTE | 2020-01-31 20:44 | NUR ---
IN TO DO ASSESSMENT. pt REPORTED 2/10 PAIN. REFUSED PAIN MEDICATION AT THIS TIME. MARIN CARE DONE. pt REPORTED HER FEET "FEEL A LITTLE SWOLLEN BELOW THE ANKLE" ELEVATED. LUNG SOUND CLEAR IN THE UPPERS, FINE CRACKLES RIGHT LOWER. IV MED GIVEN (SEE MAR). PROVIDED FRESH WATER. ASSISTED TO REPOSITION. NO FURTHER REQUESTS AT THIS TIME. CALL LIGHT WITHIN REACH.
--- NOTE | 2020-01-31 21:47 | NUR ---
pt used call light to ask for her eye drops, RN Sita notified.
--- NOTE | 2020-01-31 21:59 | NUR ---
pt REQUESTED EYE DROPS. MD CALLED, OKAY TO GIVE HOME MEDICATION. ORDER ENTERED.
--- NOTE | 2020-01-31 22:17 | NUR ---
HOME MED VERIFIED WITH TELE PHARMACY. GIVEN PER ORDER (SEE MAR). pt RESTING IN BED. NO FURTHER REQUESTS AT THIS TIME. CALL LIGHT WITHIN REACH.
--- NOTE | 2020-01-31 23:23 | NUR ---
ROUNDED ON pt. RESTING WITH EYES CLOSED, RESPIRATIONS REGULAR. CALL LIGHT WITHIN REACH.
--- NOTE | 2020-02-01 01:52 | NUR ---
ROUNDED ON pt. RESTING WITH EYES CLOSED, RESPIRATIONS REGULAR AND UNLABORED. CALL LIGHT WITHIN REACH.
--- NOTE | 2020-02-01 02:45 | NUR ---
CALL LIGHT ON. TESTING ANALYST AUNG IN TO ASSIST. PER REPORT pt STANDING AT FOOT OF BED. pt STATED "I HAD A DREAM. IT WAS REALLY HARD TO STAND UP. I TRIED THIS SIDE AND THEN THAT SIDE." pt ORIENTED AT THIS TIME. AFTER ASSISTANCE BACK TO BED O2 SAT WAS 90% ON 2L O2. AFTER A COUPLE MINUTES O2 SAT INCREASED TO 95% AND WORK OF BREATHING DECREASED. ASSESSMENT DONE. pt REPORTED PAIN AND REQUESTED A "PAIN PATCH" DISCUSSED PAIN MEDICATION OPTIONS pt REFUSED AVAILABLE MEDICATION. WILL CALL IF SHE CHANGES HER MIND. BED ALARM ON. CALL LIGHT IN HAND.
--- NOTE | 2020-02-01 03:00 | NUR ---
CALL LIGHT ON. pt REQUESTED ANOTHER BLANKET, PROVIDED. ASSISTED TO REPOSITION. NO FURTHER REQUESTS AT THIS TIME. CALL LIGHT WITHIN REACH.
--- NOTE | 2020-02-01 03:06 | NUR ---
PT CALLED, STATED 'I NEED HELP' GOT TO PT'S RM AND FOUND PT OUT OF BED, STATES 'I HAD A BAD DREAM' GOT PT BK TO BED WITH HELP OF RN, BOOSTED AND TUCKED IN
--- NOTE | 2020-02-01 04:30 | NUR ---
pt RESTING IN BED, EYES CLOSED, RESPIRATIONS REGULAR AND UNLABORED. CALL LIGHT WITHIN REACH. BED ALARM ON.
--- NOTE | 2020-02-01 05:59 | NUR ---
IN TO RECORD VITALS AND I&O. pt WOKE TO VOICE. REPORTED SHE WAS ABLE TO SLEEP "AFTER THAT BAD DREAM" REPORTED PAIN IS "OKAY" NO REQUESTS AT THIS TIME. ROOM TIDIED. CALL LIGHT WITHIN REACH.
--- NOTE | 2020-02-01 06:14 | NUR ---
pt RESTED ON AND OFF DURING SHIFT. HAD A BAD DREAM, CALLED FOR HELP, FOUND STANDING AT BEDSIDE. BED ALARM. OTHERWISE UNEVENTFUL. 1PA FWW. SL. SOFT DIET. 2L CHRONIC O2. MARIN. REFUSED PAIN MEDICATION THROUGHOUT SHIFT. USES CALL LIGHT APPROPRIATELY.
--- NOTE | 2020-02-01 09:15 | NUR ---
PT IS ALERT, C/O INCREASED BACK PAIN THIS AM, REPOSITIONED AND LIDODERM PATCH APPLIED, AGREED TO TAKE OXYCODONE SO SHE CAN WALK WITH PT THIS AM. MAINTAING OXIMETER 96% ON 2L. LUNG DIM IN BASES WITH CRACKLES ON R. ATE WELL FOR BREAKFAST.
--- NOTE | 2020-02-01 11:30 | NUR ---
PT C/O BEING TIRED TODAY WITH INCREASED SOB WITH EXHERTION, WILL CONT. TO USE NEBS. PT IS BACK IN BED FROM RECLINER AT THIS TIME, LUNGS ARE CLEAR BUT DIM. REMAINS ON O2 AT 2L/NC. USING CALL LIGHT APPROP. TANIA TAPED SECURELY WITH LIGHT YELLOW URINE.
--- NOTE | 2020-02-01 14:30 | NUR ---
ATE 50% OF LUNCH, DENIES ANY NEEDS, STATES SHE PLANS TO TAKE A NAP. POSITIONED FOR COMFORT WITH PILLOWS, STATES BACK PAIN IS BETTER, SOB WITH MUCH EXHERTION.
--- NOTE | 2020-02-01 15:19 | EKG ---
[facility] [address] [facility] [place] [address] Signed Normal sinus rhythm Normal ECG When compared with ECG of 27-NOV-2017 20:30, GA interval has decreased Criteria for Septal infarct are no longer present Confirmed by RAY CAREY DO ([id number]) on 02/01/2020 10:51:18 AM Electronically Signed By: RAY CAREY DO 02/01/20 1519 PATIENT NAME: TRECARLOSQuinn PACHECO Electrocardiogram DATE OF : 34 PHYSICIAN: RAY CAREY DO REPORT #: [id number] REPORT IS CONFIDENTIAL AND NOT TO BE RELEASED WITHOUT AUTHORIZATION
--- NOTE | 2020-02-01 16:25 | NUR ---
REPOSITIONED FOR COMFORT, TYLENOL GIVEN FOR BACK ACHING, WATCHING TV PROGRAM, NO RESP DISTRESS AT THIS TIME. CALL LIGHT IN EASY REACH.
--- NOTE | 2020-02-01 19:10 | NUR ---
RECEIVED REPORT FROM TESSY MCNAIR. pt RESTING IN BED. ASSISTED TO REPOSITION. WHITEBOARD UPDATED. CALL LIGHT WITHIN REACH.
--- NOTE | 2020-02-01 19:36 | NUR ---
DAUGHTER CALLED, ASSISTED pt WITH PHONE. RESTING IN BED.
--- NOTE | 2020-02-01 21:49 | NUR ---
IN TO ASSESS pt. pt REQUESTED BOWEL MEDICATION, NIO ENTERED. NEW IV STARTED. MEDICATIONS GIVEN (SEE MAR). ASSESSMENT DONE. pt DENIED PAIN AT THIS TIME. LIDOCAINE PATCH REMOVED. pt REPOSITIONED. MARIN CARE DONE. DILUTE YELLOW URINE. 2L O2 VIA NC. NO FURTHER REQUESTS AT THIS TIME. CALL LIGHT WITHIN REACH.
--- NOTE | 2020-02-01 23:46 | NUR ---
ROUNDED ON pt. RESTING IN BED WITH EYES CLOSED, RESPIRATIONS REGULAR AND UNLABORED. CALL LIGHT WITHIN REACH.
--- NOTE | 2020-02-02 01:44 | NUR ---
ROUNDED ON pt. RESTING IN BED WITH EYES CLOSED, RESPIRATIONS REGULAR AND UNLABORED. CALL LIGHT WITHIN REACH.
--- NOTE | 2020-02-02 02:30 | NUR ---
CALL LIGHT ON. ASSISTED pt TO REPOSITION. ASSESSMENT DONE. MARIN EMPTIED. NO FURTHER REQUESTS AT THIS TIME. CALL LIGHT WITHIN REACH.
--- NOTE | 2020-02-02 04:11 | NUR ---
ROUNDED ON pt. RESTING WITH EYES CLOSED, RESPIRATIONS REGULAR AND UNLABORED. CALL LIGHT WITHIN REACH.
--- NOTE | 2020-02-02 05:34 | NUR ---
IN TO DO VITALS AND I&O. pt WOKE TO VOICE. NO REQUESTS AT THIS TIME. CALL LIGHT WITHIN REACH.
--- NOTE | 2020-02-02 06:25 | NUR ---
pt RESTED MOST OF SHIFT. ON 2L O2 CHRONIC. MARIN. IV SL. SOFT DIET. DENIED PAIN THROUGHOUT SHIFT, PREFERS LIDOCAINE PATCH TO ORAL MEDS. USES CALL LIGHT APPROPRIATELY.
--- NOTE | 2020-02-02 06:59 | NUR ---
CALL LIGHT ON. pt UP TO BSC AND BACK TO BED NO BM. REPORTED 4/10 PAIN, PRN GIVEN (SEE MAR). NO FURTHER REQUESTS. CALL LIGHT WITHIN REACH.
--- NOTE | 2020-02-02 07:27 | NUR ---
PT RESTING IN BED, HEAT TURNED UP PER HER REQUEST. REPORT RECEIVED. PT REFUSES UP TO THE CHAIR AT THIS TIME STATING "I WANT TO JUST STAY IN BED AWHILE" SHE DENIES DISCOMFORTS OR NEEDS OF. CALL LIGHT IN REACH
--- NOTE | 2020-02-02 10:10 | NUR ---
PT UP TO THE CHAIR FOR BREAKFAST. C/O SEVERE BACK PAIN, LIDOCAINE PATCH PROVIDED WELL 2.5 MG OXY. PT HAS DIFFICULTY SWALLOWING HER MEDS STATING "THAT ONE DIDN'T GO DOWN" APPLESAUCE PROVIDED. PT DRINKING WATER AND HAS A FEW BITES OF APPLESAUCE. ABLE TO TALK NO SOB OR CHOKING APPARENT. PT UP TO WORK WITH P/T HAS A SMALL EMESIS LATER. PT RETURNS TO BED, RESTING SUPINE AT THIS TIME. DENIES NAUSEA OR BACK PAIN.
--- NOTE | 2020-02-02 10:25 | NUR ---
VITALS AND I&OS AHCRTED. MARIN EMPTIED. CALL LIGHT IN REACH
--- NOTE | 2020-02-02 14:11 | NUR ---
PATIENT AWAKE IN BED. VITALS AND I&OS CHARTED. CALL LIGHT IN REACH
--- NOTE | 2020-02-02 14:30 | NUR ---
DR ADAMES IN TO SEE PT SHE IS ALERT AND COOPERATIVE ASKING AND ANSWERING QUESTIONS. TANIA SHAH'D PER ORDER AND SUPPOSITORY FOR NO BM ADMINISTERED. ASSISTED PT TO PUT ON UNDERGARMENT AND RETURN TO BED WHERE SHE SAYS SHE'D "BE MORE COMFORTABLE" 2 PERSON ASSIST TO ADJUST TO A COMFORTABLE POSITION. PT IS EXTREMELY SOB WITH ACTIVITY BUT RETURNS TO BASELINE QUICKLY THERE AFTER. AGREES HER BACK FEELS BETTER RESTING IN BED, TYLENOL ADMINISTERED FOR PAIN CONTROL.
--- NOTE | 2020-02-02 16:22 | NUR ---
PT UP TO BSC ABLE TO VOID 75 MLS NO BM. RETURNS TO BED, STATES HER BACK FEELS BETTER IN THE BED THAN THE CHAIR. CALL LIGHT IN REACH, FRESH H20 AT BEDSIDE
--- NOTE | 2020-02-02 19:36 | NUR ---
SHIFT REPORT FROM NURSE CARLIN. PT IN BED. NO IMMEDIATE NEEDS AT THIS TIME. CALL LIGHT WITHIN REACH.
--- NOTE | 2020-02-02 20:34 | NUR ---
CALL LIGHT ON. pt UP TO VOID. 1PA FWW. 2L O2 VIA NC. BACK TO BED. REQUESTED PRN PAIN MED FOR 6/10 BACK PAIN. GIVEN WITH SCHEDULED MEDICATIONS (SEE MAR). VITALS AND I&O RECORDED. PROVIDED FRESH WATER. ORAL CARE DONE. CALL LIGHT WITHIN REACH.
--- NOTE | 2020-02-03 02:08 | NUR ---
SCHEDULED VITAL SIGNS COMPLETE, ASSESSMENT COMPLETE. I/O'S COMPLETE. IVF INFUSING WNL. PT REQUESTED TO USE BEDPAN. TEMP 100.0, BLANKETS REMOVED, WILL CONTINUE TO MONITOR. CALL LIGHT IN REACH, NO OTHER NEEDS AT THIS TIME.
--- NOTE | 2020-02-03 03:05 | NUR ---
PT CALLED TO GET UP TO THE TOILET, SBA/1PA W/ FWW TO BR, WEAK AT FIRST, SOB WHILE WALKING BK TO BED, BK IN BED AT THIS TIME, C/O BACK PAIN, INFORMED PRIMARY RN, WARM BLANKET PROVIDED, RN AND THIS UNIX ADMINISTRATOR BOOSTD PT UP IN BED, RN PROVIDE TYNONOL TO PT, NO FURTHER REQUEST AT THIS TIME
--- NOTE | 2020-02-03 03:05 | NUR ---
PRN TYLENOL ADMINSTERED FOR 5/10 PAIN IN LOWER BACK. REPOSITIONED IN BED. WILL CONTINUE TO MONITOR.
--- NOTE | 2020-02-03 06:46 | NUR ---
ASSESSMENT COMPLETE. PT UP TO BSC, SBA WITH FWW. SOB WITH EXERTION. VS COMPLETE, I/O'S COMPLETE. PT BACK TO BED, REPOSITIONED W PILLOWS. STATES 4/10 PAIN IN LOWER BACK, DENIES PAIN MEDICATION AT THIS TIME. 2L O2 NC, TOLERATING WELL. IV WNL, SALINE LOCKED. HANGER OFF IN ROOM, CALL LIGHT IN REACH, NO FURTHER NEEDS REPORTED AT THIS TIME.
--- NOTE | 2020-02-03 06:55 | NUR ---
PATIENT DECIDED TO REQUEST PAIN MEDICATION. ADMINSTERED, SEE MAR. NO FURTHER NEEDS AT THIS TIME.
--- NOTE | 2020-02-03 07:14 | NUR ---
PT RESTING IN BED AWAKE AT TIME OF REPORT. LIDOCAIN PATCH APPLIED PER REQUEST, NEB TX DUE SHORTLY THEN ISOLATION FOR 23 MINUTES. PT DENIES NEED OF TOILET OR OTHER. BREATHING IS EVEN AND UNLABORED. FRESH H20 AT BEDSIDE AND BREAKFAST ORDERED
--- NOTE | 2020-02-03 09:17 | NUR ---
PT C/O SOB AFTER BREATHING TREATMENT. SATS REMAINED MID 90'S RN ASSISTED TO REPOSITION AND COMFORT PT RECOVERS QUICKLY. SUSPECT ANXIETY. CHECKING BACK SATS CONTINUE MID 90'S PT IS NOT IN DISTRESS BUT CONTINUES A BIT TACHPENIC. TOLERATES 95% OF MORNING MEAL AND IS ABLE TO SWALLOW MEDS. PT REMAINS IN BED AT THIS TIME ANTICIPATE P/T SHORTLY. LIDOCAINE PATCH IN PLACE. PT HAD OXY WELL TYLENOL EARLIER IN ANTICIPATION OF ACTIVITY.
--- NOTE | 2020-02-03 10:00 | NUR ---
Left message with [facility] asking if they feel pt can return. She has up and down days and at times requires [address] García and he feels she should go to a SNF. I received a message from her son, Tomy, he is wanting to know if she can decline a SNF.
--- NOTE | 2020-02-03 10:40 | NUR ---
CALL LIGHT ANSWERED. PATIENT SITTING UP IN BED. PATIENT ASSISTED TO USE THE BASE COMMODE. TWO PERSON ASSISTING. PATIENT BACKS TO BED. WARM BLANKET PROVIDED. CALL LIGHT WITHIN REACH. NO OTHER NEEDS AT THIS TIME
--- NOTE | 2020-02-03 11:00 | NUR ---
Return call to Don. Updated it is not up to us, it is up to [facility] and their licensure of what level of care. UPdated they cannot take a pt who requires 2 person assist. Discussed she will probably needs 2-4 weeks of rehab and then return to [facility]. He states he needs to speak with [facility] and also to his sister.
--- NOTE | 2020-02-03 11:20 | NUR ---
Spoke with Mar, she is eating lunch. Discussed where she wants to go on dc. She would like to return to [facility]. She is unsure of where she would like to go is she cannot return to [facility]. Discussed she needs to be independent of require little assist to return to [facility]. Attempted to discuss how her PT/OT is going. She denies she has ever walked with PT and per OT she declines. Will discuss placement with son.
--- NOTE | 2020-02-03 11:54 | NUR ---
CALL LIGHT ANSWERED. PATIENT RESTING IN BED. PATIENT ASSISTED TO USE THE BASE COMMODE. ONE PERSON ASSISTING. PATIENT BACKS TO BED. CALL LIGHT WITHIN REACH. NO OTHER NEEDS AT THIS TIME
--- NOTE | 2020-02-03 12:25 | NUR ---
DR ADAMES IN TO SEE PT QUESTIONS ASKED AND ANSWERED. PT DAUGHTER CALLS FROM [employer] SHE GIVES PERMISSION FOR THIS G[employer] BOX OPERATOR TO ANSWER HER QUESTIONS. PT UP TO BSC SOB BUT RECOVERS QUICKLY. RESTING IN BED R/T PRESENT FOR TREATMENT
--- NOTE | 2020-02-03 12:53 | NUR ---
CALL LIGHT WAS ANSWERED AND WARM BLAKET WAS PROVIDED. CALL LIGHT AND PHONE ARE IN REACH. NO OTHER NEEDS AT THIS TIME.
--- NOTE | 2020-02-03 13:40 | NUR ---
Spoke with Niecy castaneda [facility]. She states concern as she feels pt is not any where near her baseline. Notes from therapy read/sent from the weekend. She states she feels they cannot take her. Updated I will speak with the son and pt to see where she would like to go. Message left for son.
--- NOTE | 2020-02-03 14:18 | NUR ---
ENTERED PT'S RM, SHE IS CALLING OUT THAT SHE NEEDS HELP TO THE BR. TESSY CARLIN AND TESSY DIAZ HEARD AND CAME TO ASSIST. WILL CHECK BACK
--- NOTE | 2020-02-03 14:44 | NUR ---
PT RESTING EYES CLOSED APPEARS COMFORTABLE BREATHING EVEN AND UNLABORED
--- NOTE | 2020-02-03 15:20 | NUR ---
Spoke with son, Tomy. He has spoken with Niecy from [facility]. He is unsure if he wants mom to go to [facility] as they had a family member there a few years ago. Updated he should go to [email or web address]. He would like to call and speak with SNFS in the area. Phone number for [facility], [facility], [facility], [facility], and [place] at the [facility] given.
--- NOTE | 2020-02-03 16:00 | NUR ---
Call from Tomy and he states his sister will be here tomorrow morning. They would like to visit mom and discuss placement with her. Asked if he has any other choices for placement as I need to send a chart today for acceptance tomorrow. Updated Dr. García is near discharging pt. He states understanding and states he really doesn't have second choice. Informed I speak with them tomorrow. desk sergeant notified pt will have two visitors in the am to discuss placement.
--- NOTE | 2020-02-03 18:42 | NUR ---
PATIENT IN BED WATCHING TV. CALL LIGHT IN REACH. NO FURTHER NEEDS AT THIS TIME.
--- NOTE | 2020-02-03 19:39 | NUR ---
REPORT RECEIVED FROM TESSY VALERIO. RESTING IN BED, BED ALARM IN PLACE.
--- NOTE | 2020-02-03 20:50 | NUR ---
PHONE CALL TO , pt REQUESTING HEAT PACK FOR BACK PAIN. TO ORDER K PAD.
--- NOTE | 2020-02-03 22:05 | NUR ---
SCHEDULED MEDICATIONS ADMINISTERED, PRN PAIN MEDICATION GIVEN PER PT REQUEST FOR 5/10 BACK PAIN. LIDO PATCH REMOVED. EYE DROPS ADMINISTERED. WATER REFRESHED, WARM BLANKETS PROVIDED, REPOSITIONED IN BED WITH PILLOWS IN USE. PT REFUSED HEEL PROTECTORS. CALL LIGHT IN REACH, REINFORCED EDUCATION ABOUT CALL LIGHT USE. WILL CONTINUE TO MONITOR.
--- NOTE | 2020-02-04 00:35 | NUR ---
ROUNDED ON PATIENT, LAYING IN BED WITH EYES CLOSED, LIGHTS OFF. BREATHING EVEN AND UNLABORED. CALL LIGHT WITHIN REACH. NO APPARENT NEEDS AT THIS TIME.
--- NOTE | 2020-02-04 00:57 | NUR ---
CALL LIGHT ON. pt UP TO VOID 1PA FWW, AND BACK TO BED. ASSISTED WITH POSITIONING. NO FURTHER REQUESTS AT THIS TIME. CALL LIGHT IN HAND.
--- NOTE | 2020-02-04 02:39 | NUR ---
ROUNDED ON PATIENT, IN BED WITH LIGHTS OFF, EYES CLOSED, BREATHING EVEN AND UNLABORED. CALL LIGHT WITHIN REACH. NO APPARENT NEEDS AT THIS TIME.
--- NOTE | 2020-02-04 03:04 | NUR ---
CALL LIGHT ANSWERED, RN FIONA ASSISTED PATIENT TO BSC TO VOID. O2 TITRATED TO 4L NC D/T INCREASED WORK OF BREATHING, SPO2 @ 96%. RT IN ROOM TO ADMINISTER NEB TX. THIS RN ASSESSED PT, LUNG SOUNDS CLEAR BUT DIM, SHALLOW BREATHING. CAP REFILL WNL. REDNESS TO LOWER BACK ASSESSED, REMAINS UNCHANGED. WILL CONTINUE TO MONITOR.
--- NOTE | 2020-02-04 04:30 | NUR ---
CALL LIGHT ANSWERED. 1PA TO RESTROOM FOR VOID AND BACK TO BED. pt REFUSES TO ATTEMPT TO WHIPE, ASSISTED BY THIS RN. URINE ODOROUS. BACK IN BED, BREATHING LABORED. OXYGEN IN PLACE. CALL LIGHT IN REACH.
--- NOTE | 2020-02-04 04:48 | NUR ---
PRN PAIN MEDICATION ADMINISTERED PER PT REQUEST FOR 6/10 PAIN IN LOWER BACK. K PAD APPLIED TO LOWER BACK WELL. PT REPOSITIONED IN BED WITH PILLOWS. CALL LIGHT IN REACH, WILL CONTINUE TO MONITOR.
--- NOTE | 2020-02-04 05:10 | NUR ---
PATIENT REPORTS 6/10 PAIN THIS SHIFT, PRN PAIN MEDICATION ADMINISTERED x2. 2L 02 NC, TITRATED TO 4L DURING EXERTION D/T SOB. PIVOT TRANSFER TO BSC TO VOID, ATTENDS IN PLACE. INCREASED URINARY FREQUENCY, ODOROUS URINE. CONTINUES TO C/O LOWER BACK PAIN, K PAD IN PLACE, REPOSITIONED FREQUENTLY. VSS, A+O, LUNG SOUNDS CLEAR BUT DIM, HRR, BOWEL TONES ACTIVE, LAST BM 02/02. REDNESS ON LOWER BACK MONITORED. USES CALL LIGHT APPROPRIATELY.
--- NOTE | 2020-02-04 05:58 | NUR ---
PATIENT REPORTS 6/10 PAIN THIS SHIFT, PRN PAIN MEDICATION ADMINISTERED x2. 2L 02 NC AT REST, TITRATED TO 4L DURING EXERTION D/T SOB. 1 PA WITH FWW TO BR TO VOID. ATTENDS IN PLACE. INCREASED URINARY FREQUENCY, ODOROUS URINE. CONTINUES TO C/O LOWER BACK PAIN, K PAD IN PLACE, REPOSITIONED FREQUENTLY. VSS, A+O, LUNG SOUNDS CLEAR BUT DIM, HRR, BOWEL TONES ACTIVE, LAST BM 02/02. REDNESS ON LOWER BACK MONITORED.
--- NOTE | 2020-02-04 06:02 | NUR ---
IN TO DO VITALS AND I&O. pt RESTING IN BED. WOKE TO VOICE. VITALS AND I&O RECORDED. FRESH WATER PROVIDED. CALL LIGHT WITHIN REACH. NO REQUESTS AT THIS TIME.
--- NOTE | 2020-02-04 06:50 | NUR ---
ROUNDED ON PATIENT, LAYING IN BED WITH EYES CLOSED, LIGHTS OFF. BREATHING EVEN AND UNLABORED. CALL LIGHT WITHIN REACH. NO APPARENT NEEDS AT THIS TIME.
--- NOTE | 2020-02-04 07:05 | NUR ---
Bedside shift report given by the nightshift RN to this RN and Gladys STILL (preceptor). Pt was up to the bathroom with assistance much of the night, and needs 2L NC when at rest and 4L NC with exertion (as told in report). Pt had some irritation with her lidocaine patch, and had some mild back pain last evening. RNs reported that pt has chronic dysphagia but was able to take her pills with lots of water. Otherwise, nothing else specific to last shift.
--- NOTE | 2020-02-04 08:00 | NUR ---
In room for morning med pass and pt assessment. Pt was lying in bed, and was alert and pleasant upon greeting. Pt up to chair with 2PA, andrez RN and Gladys STILL. SN (student nurse) present. Pt up to commode, able to void. Pt to chair. Pt able to take medications with a great deal of effort and time to swallow all medications. Pt assessment complete, see charting. Pt on 2L NC while resting and titrated to 4L NC with exertion. Pt sitting up in chair, legs elevated, table over lap, call light within reach, having breakfast.
--- NOTE | 2020-02-04 08:10 | NUR ---
THIS RN TO ROOM TO CHECK ON PT. PT WORKING WITH TESSY LEO AND SHARATH RN. 2 PERSON ASSIST UP TO BEDSIDE COMODE AND THEN UP TO CHAIR. MORNING CARES DONE, DENTURES AND HEARDING AIDS IN PLACE. LINENS CHANGED. CONTINUED DIFFICULTY WITH SWALLOWING PILLS NOTED. PT ABLE TO SWALLOW MEDICATIONS WITH SOME TIME AND SWALLOWING GUIDENCE. PT DEMONSTRATING USE OF CHIN TUCK. VITALS TAKEN. NO ADDITIONAL REQUESTS OR COMPLAINTS AT THIS TIME. CALL LIGHT WITHIN REACH. TESSY LEO AND STUDENT RN REMAIN AT BEDSIDE.
--- NOTE | 2020-02-04 08:51 | NUR ---
PT REPORTING 7/10 LOWER BACK ACHING PAIN. SEE MAR FOR MEDICATION GIVEN. PT FINISHED WITH BREAKFAST AND WATCHING TV. REMAINS UP TO CHAIR. K-PAD IN PLACE. NO ADDITIONAL REQUESTS OR COMPLAINTS AT THIS TIME. CALL LIGHT WITHIN REACH.
--- NOTE | 2020-02-04 09:45 | NUR ---
PT CALL LIGHT ON. PT REQUESTS ASSISTANCE WITH USING RESTROOM AND GETTING BACK TO BED. 1 PERSON ASSIST, FWW UP TO BEDSIDE COMODE. PT VOIDS WITHOUT ISSUE. RISHI CAR DONE. FRESH DEPENDS IN PLACE. PT BACK TO BED. K-PAD IN PLACE. PT CONTINUES TO REPORTS 7/10 PAIN. PT REPOSITIONED AND REPORTS FEELING MORE "COMFORTABLE." WARM BLANKETS PROVIDED. NO ADDITIONAL REQUESTS OR COMPLAINTS AT THIS TIME. CALL LIGHT WITHIN REACH.
--- NOTE | 2020-02-04 10:20 | NUR ---
Spoke with Mar. Family will be in to visit this morning. She denies co.
--- NOTE | 2020-02-04 10:28 | NUR ---
In room for rounding and pain assessment. Pt working with OT. Pt reports 6/10 pain in lower back. Pt back to bed, positioned to comfort. Pt is stil in the ow 90s on her pulse ox, on 2L NC. Pt anticipating physical therapy to work with her later this morning. Pt in bed, side rails up, bed in lowest position, table and call light within reach.
--- NOTE | 2020-02-04 11:30 | NUR ---
In room for rounding. Physical therapist Virginia just leaving. Virginia reports that pt was unable to complete therapy session due to fatigue and dasaturation during movements. Pt was satting in the high 80s with physical therapy. Pt is currently at 88% oxygen saturation on 2L NC. Titrated up to 4L NC, within a minute was unable to reach above 90% on 4L. Pt titrated up to 5L NC, within a minute she was able to reach 91%. After a few mins I titrated back down to 4L NC, and within two mins the pt returned to 88% saturation. I titrated pt to 6L NC and within a minute was able to reach 92%. Leaving pt on 6L to discuss condition with preceptor RN. Pt lying in bed, side rails up, table and call light within reach. Pt at 90% on 6L NC.
--- NOTE | 2020-02-04 11:58 | NUR ---
THIS RN TO ROOM TO CHECK ON PT PER REQUEST FROM TESSY LEO. RESPIRATORY ASSESSMENT DONE. CORSE LUNG SOUNDS TO RIGHT LOWER LOB OF LUNG. O2 AT 95% ON 4LITERS O2 BY NC. O2 TITRATED TO 2L O2 BY NC. FAMILY AT BEDSIDE REPORTS PTS O2 SATURATION DROPS WHEN SHE IS SLEEPING. PT MAINTAINING O2 SATURATIONS ABOVE 90% ON 2L O2 BY NC AT THIS TIME. PT CONTINUES TO REPORTS 8/10 PAIN IN BACK, K-PAD IN PLACE. MD TO BEDSIDE FOR ROUNDS. PT REPORTS TO MD THAT PAIN IS CONTROLED WITH CURRENT PAIN MEDICATION. MD CONSULTED REGADING CLOUDY AND ODOR NOTED TO URINE. UA ORDERED. FAMILY REMAINS AT BEDSIDE, FAMILY UPDATED ON PLAN OF CARE AND STATES ALL THEIR QUESITONS HAVE BEEN ANSWERED. PT STATES SHE HAS NO ADDITIONAL REQUESTS OR COMPLAINTS AT THIS TIME. CALL LIGHT WITHIN REACH.
--- NOTE | 2020-02-04 12:25 | NUR ---
THIS RN IN ROOM POSTING NOTIFICATION SIGN FOR URINE COLLECTION. FAMILY EXPRESSES CONCERNS THAT PT DOES NOT HAVE PULSE OXIMETER IN PLACE. THIS RN EXPLANS RATIONAL FOR SPOT CHECKING OXYGEN. PT REMAINS AT 92-94% O2 ON 2L BY NC AT THIS TIME. THIS RN OFFERS TO PLACE PT ON CONTINIOUS OXYGEN SATUATION MONITORING. FAMILY AND PT DECLINE AT THIS TIME. FAMILY EXPRESSES CONCERN THAT PT IS "NOT BREATHING WELL" WHILE SLEEPING. FAMILY STATES THIS IS PER PTS BASELINE AND THAT "SHE DOES THE SAME THING AT HOME." PT REPOSITIONED WITH HEAD OF BED AT 45 DEGREES. ADDITIONAL PILLOW PROVIDED FOR PT. PT NOTED BY THIS RN TO MOUTH BREATH WHILE SLEEPING, FAMILY STATES PT DOES THE SAME AT HOME. O2 MAINTAINING AT THIS TIME ABOVE 90% ON 2L O2 BY NC. FAMILY STATES THEY HAVE NO ADDITIONAL REQUESTS OR COMPLAINTS. FAMILY ASKED IF THEY HAVE ANY ADDITIONAL CONCERNS THEY WOULD LIKE TO BE ADDRESSED. FAMILY STATES "NO" PT ALSO STATES "NO, I JUST WANT TO REST." BED RAILS UP. CALL LIGHT WITHIN REACH. PT ALLOWED. TO REST.
--- NOTE | 2020-02-04 12:40 | NUR ---
Notified by staff, Mar's family are present. In and spoke with Mar, family are not in the room, but arrive shortly. Mar is stating she visited with the family and they want her to go the [facility]. She is in agreement. Let her know I have sent her chart to [facility] and called [facility] in [place] to check for placement. She states she is in agreement to go to [facility]. Let son and daughter know I will contact [facility]. Message left for Niecy asking if they will accept Mar and when. Per children they have spoken with [facility] and their questions were answered. Daughter does states they are planning on taking Mar to [facility] as I had discussed with the brother yesterday they are under new management and clarified their care is better under new management. I informed her I did not state their care was better, I encouraged him to go to [email or web address]. I clarified I am not recommending or disuading [facility], I only provide information on SNFs available in the area. Updated daughter I also gave Don the phone numbers and information of four other SNFs in the area. He refused [facility] in [place] outright.
--- NOTE | 2020-02-04 12:50 | NUR ---
PT FAMILY TO NURSES STATION STATING PT NEEDS TO USE THE RESTROOM. THIS RN TO ROOM. FAMILY OUTSIDE OF ROOM [facility] O2 INCREASED TO 4L BY NC FOR ACTIVITY. OXYGEN SATURATION AT 94% PRIOR TO INCRASE. PT UP TO BEDSIDE COMODE WITH 1 PERSON ASSIST AND FRONT WHEEL WALKER. PT VOIDS WITHOUT ISSUE. SAMPLE COLLECTED AND SENT TO LAB. 1 PERSON ASSIST, FWW BACK TO BED. PT POSITIONED FOR COMFORT IN BED. O2 AT 93% ON 4L WITH ACTIVITY. PT WEANED TO 2L O2 BY NC, PT MAINTAINING OXYGEN SATURATION ABOVE 92%. KARMEN, RT AT BEDSIDE FOR SCHEDULED NEBULIZER TREATMENT. PT RESTING IN BED. WARM BLANKET PROVIDED. NO ADDITIONAL REQUESTS OR COMPLAINTS AT THIS TIME. CALL YOLA BUNDY.
--- NOTE | 2020-02-04 13:35 | NUR ---
PATIENT SLEEPING. WE WILL TAKE HER VITAL SIGNS LATER WHEN SHE WAKES UP. CALL LIGHT WITHIN REACH. NO OTHER NEEDS AT THIS TIME
--- NOTE | 2020-02-04 13:43 | NUR ---
JUST I WAS TO ENTER PTS' RM, FAMILY ARRIVED TO VISIT. WILL CHECK BACK
--- NOTE | 2020-02-04 13:44 | NUR ---
Notified by Niecy pt will be able to admit to [facility] tomorrow morning. Called son and updated, he prefers we transport. Dr. García updated and he will complete orders. Requested [facility] have wc and 02 for pt to use for transport with van.
--- NOTE | 2020-02-04 14:00 | NUR ---
AFTERNOON ASSESSMENT DUE. PT RESTING WITH EYES CLSOED. PT AWAKENS TO VOICE AND MOVEMENT IN ROOM. PT REPORTS 7/10 ACHING PAIN IN BACK THAT IS "GETTING BETTER." K-PAD IN PLACE. PT DENIES NEED FOR ADDITIONAL PAIN MEDICAITONS AT THIS TIME. PT ORIENTED TO ALL. CORSE LUNG SOUND IN RIGHT LOWER LOB CONTINUE, LUNG SOUNDS OTHERWISE CLEAR. O2 REMAINS AT 92-94% ON 2L O2 BY NC WHILE PT IS AWAKE. WHEN PT IS SLEEPING O2 DROPS TO 87% ON 2L O2 BY NC. NO IMPROVEMENT NOTED WITH INCREASE IN OXYGEN. PT REPORTS SHE HAS BEEN TOLD SHE DOESN'T BREATH WELL WHILE SLEEPING. PT REPORTS OVER ALL SHE IS FEELING "BETTER TODAY." PT STATES SHE IS "STONGER" TODAY. PT DRIFTS BACK TO SLEEP QUICKLY AFTER TALKING WITH THIS RN. NO ADDITIONAL REQUESTS OR COMPLAINTS. BED RAILS UP. CALL LIGHT WITHIN REACH.
--- NOTE | 2020-02-04 14:12 | NUR ---
MD CONSULTED REGARDING DROP IN OXYGEN SATURATION. NO NEW ORDERS AT THIS TIME. MD STATES TO RECCOMEND TO FAMILY AND PT THAT PT BE EVALUATED FOR SLEEP APNEA AN OUTPATIENT AFTER DISCHARGE, RECCOMENDATION PASSED ON TO PT AND FAMILY WHO VERBALIZE UNDERSTANDING.
--- NOTE | 2020-02-04 14:19 | NUR ---
CALL LIGHT ANSWERED. PATIENT ASSISTED TO SETS UP TABLE TO EAT YOGURTH. PATIENT WOULD LIKE TO TAKE A SHOWER AFTER SHE FINISH HER YOGURT. CALL LIGHT WITHIN REACH. NO OTHER NEEDS AT THIS TIME
[2020-02-04] MEDS ORDERED: OXYCODONE HCL5 MG PO (14:29)
[2020-02-04] MEDS ORDERED: LO-DOSE ASPIRIN81 MG PO (14:29)
[2020-02-04] MEDS ORDERED: TYLENOL325 MG PO (14:30)
[2020-02-04] MEDS ORDERED: PREDNISONE20 MG PO (14:32)
[2020-02-04] MEDS ORDERED: LIDOCAINE PAIN1 EACH TD (14:32)
--- NOTE | 2020-02-04 14:50 | NUR ---
Orders completed by Dr. García. Orders, script, PASRR faxed to Niecy at [facility].
--- NOTE | 2020-02-04 14:50 | NUR ---
Spoke with Mar and updated she will go by van to [facility] tomorrow.
--- NOTE | 2020-02-04 14:59 | NUR ---
PTS GRANDDAUGHTER, XU, CALLED FOR UPDATE. PT STATES IT IS OK TO UPDATE HER GRANDAUGHTER. XU UPDATED ON PTS CONDITION AND PLAN FOR DISCHRAGE. XU VERBALIZES UNDERSTANDING AND STATES HER QUESITONS HAVE BEEN ANSWERED. XU REQUESTS TO TALK WITH PT, PT STATES SHE IS TOO TIRED AT THIS TIME. THIS RN RECCOMENDED TO XU TO CALL BACK AT A LATER TIME WHICH XU STATES SHE WILL DO. NO ADDITIONAL REQUESTS FROM XU OR PT AT THIS TIME. PILLOWS ADJUSTED PER PT PREFERENCE. CALL LIGHT WITHIN REACH.
--- NOTE | 2020-02-04 15:38 | NUR ---
GUESTS OF PATIENT LEFT THE HOSPITAL AND AFTER A SHORT REST PATIENT WAS READY FOR SHOWER. SHE USED THE BEDSIDE COMMODE FIRST AND THEN SAT IN SHOWER WHEELCHAIR THAT WAS THEN WHEELED TO . SHOWER WAS GIVEN AND SHE COMMUNICATED WITH US THE WHOLE TIME. AFTER SHOWER PATIENT WAS HELPED BACK TO BED. SHE WANTED TO REST. CALL LIGHT AND PHONE IN REACH. NO OTHER NEEDS AT THIS TIME.
--- NOTE | 2020-02-04 16:09 | NUR ---
AFTERNOON ASSESSMENT DUE. PT RESTING IN BED. PT REPORTS 6/10 ACHING BACK PAIN AND REQUESTS PAIN MEDICATION, SEE MAR FOR MEDICATION GIVEN. PT SHORT OF BREATH WITH CONVERSATION BUT IS ABLE TO REPEAT AN 8 WORD SENTANCE BACK TO THIS RN IN ONE BREATH. PT COUGHS WITH SWALLOWING OF MEDICAITONS. PT ABLE TO CLEAR LUNGS AND SWALLOW PILLS EFFECTIVELY. PT MAINTAINING O2 ABOVE 92% ON 2L O2 BY NC, CURRENTLY 97%. LUNG SOUNDS TO RIGHT LOWER QUDRANT IMPROVED. RT TO BEDSIDE FOR NEBULIZER TREATMENT. NO ADDITIONAL REQUESTS OR COMPLAINTS AT THIS TIME. CALL LIGHT WITHIN REACH. RT REMAINS AT BEDSIDE WITH PT.
--- NOTE | 2020-02-04 16:30 | NUR ---
THIS RN NOTES THAT LAB SAYS THEY HAVE NOT RECEIVED URINE SAMPLE. ADDITIONAL SAMPLE COLLECTED BY CLEAN CATCH AND WALKED TO LAB. PT UP TO BEDSIDE COMODE WITH 1 PERSON ASSIST AND FRONT WHEEL WALKER. RISHI CARE DONE. DEPENDS CHANGED. 1 PERSON ASSIST BACK TO BED. PT UNABLE TO ADJUST SELF IN BED DUE TO WEAKNESS. 2 PERSON ASSIST TO ADJUST PT IN BED. PT CONTINUES TO REPORT 6/10 BACK PAIN AND REQUESTS ADDITIONAL PAIN MEDICAITON, SEE MAR FOR MEDICATION GIVEN. O2 SATURATION OF 93% ON 2L O2 BY NC. NO ADDITIONAL REQUESTS OR COMPLAINTS AT THIS TIME. CALL LIGHT WITHIN REACH.
--- NOTE | 2020-02-04 16:46 | NUR ---
PT HERE FOR ALTERED MENTAL STATUS. UP TO CHAIR, BEDSIDE COMODE, AND WITH PHYSICAL THERAPY WITH 1 PERSON ASSIST AND FRONT WHEEL WALKER. PT UNSTEADY ON FEET AT TIMES AND HAS LIMITED TOLERANCE FOR ACTIVITY. BASELINE 2L O2 BY NC IN PLACE AND INCREASED TO 4L O2 BY NC WITH ANY ACTIVITY. LIMITED PHYSICAL THERAPY THIS SHIFT. SCHEDULED NEBULIZER TREATMENTS GIVEN WITH GOOD RESULTS. PT TOLERATING SOFT DIET AND ABLE TO SWALLOW MEDICATIONS WITH SOME DIFFICULTY AND COUGHING NOTED. 6-8/10 PAIN THIS SHIFT WITH SCHEDULED PAIN MEDICATIONS GIVEN. CARE CONFERENCE THIS SHIFT WITH FAMILY, CASE MANAGEMENT AND PT REGARDING PLAN OF CARE. PT EXPECTING DISCHARGE TO [facility] TOMORROW. URINE NOTED TO BE CLOUDY AND HAVE ODOR, UA ORDERED AND SENT TO LAB. MINIMAL APPITITE THIS SHIFT. PT VOIDING QUANTITY SUFFICIENT. PT USES CALL LIGHT INCONSISTANTLY.
--- NOTE | 2020-02-04 16:52 | NUR ---
CALL PLACED TO RUBEN, PTS SON WITH UPDATE ON PTS STAUTS. RUBEN ASKS QUESTIONS ABOUT PTS BREATHING HABITS WHEN SLEEPING. RECCOMENDATIONS FOR AN OUTPATIENT SLEEP STUDY REVIEWED WITH RUBEN. RUBEN VERBALIZES UNDERSTANDING OF PLAN OF CARE AND STATES HIS QUESTIONS HAVE BEEN ANSWERED AND THAT HE HAS NO ADDITIONAL CONCERNS OR REQUESTS AT THIS TIME.
--- NOTE | 2020-02-04 17:26 | NUR ---
PT VISITING WITH FRIENDJA AT BEDSIDE. JA ASKS FOR EYE DROPS FOR PT. SALINE FISH EYE DROPS PROVIDED FOR PT. PT REPORTS THIS "HELPS A LOT." PT UP TO CHAIR WITH 1 PERSON ASSIST AND FRONT WHEEL WALKER. O2 INCREASED TO 4L O2 BY NC WITH ACTIVITY. PT EATING DINNER IN CHAIR WHILE VISITING WITH FRIEND. PT REPORTS PAIN IS IMPROVING, NOW AT 4/10. NO ADDITIONAL REQUESTS OR COMPLAINTS. CALL LIGHT WITHIN REACH. FRIEND AT BEDSIDE.
--- NOTE | 2020-02-04 17:53 | NUR ---
PT CALL LIGHT ON. PT REQUESTS ASSISTANCE BACK TO BED. THIS RN TO ROOM. PT FINISHED WITH DINNER, PT ABLE TO EAT ABOUT 25% OF DINNER. 1 PERSON ASIST FRONT WHEEL WALKER BACK TO BED. PT UNSTEADY ON FEET. O2 AT 94% ON 4 LITERS WITH AMBULATION AND 93% ON 2L O2 BY NC ONCE BACK TO BED AND TITRATED. MD CALLED WITH UPDATE ON UA RESULTS. NEW ORDERS PLACED. ORAL ABX GIVEN. WARM BLANKETS PROVIDED. NO ADDITIONAL REQUESTS OR COMPLAINTS AT THIS TIME. CALL LIGHT WITHIN REACH. K-PAD IN PLACE.
--- NOTE | 2020-02-04 18:05 | NUR ---
PATIENT IS IN BED AND RN IS IN ROOM. AFTER LAYING DOWN IN BED O2 WAS TURNED DOWN TO 2LNC. CALL LIGHT IS IN REACH. NO OTHER NEEDS AT THIS TIME.
--- NOTE | 2020-02-04 19:36 | NUR ---
REPORT RECEIVED FROM TESSY PERRY. PATIENT AWAKE, LAYING IN BED, POSITIONED WITH PILLOWS. K PAD IN PLACE. SPO2 CHECKED, 93% ON 2L NC. PATIENT STATES PAIN IS CURRENTLY 2/10, MADE PLAN WITH PT TO ADMINSITER PAIN MEDICATION WHEN AVAILABLE. A+O. CALL LIGHT WITHIN REACH, PT STATES NO NEEDS AT THIS TIME. WILL CONT TO MONITOR.
--- NOTE | 2020-02-04 20:39 | NUR ---
CALL LIGHT ANSWERED. 1 PA TO THE BEDSIDE COMMODE AND BACK TO BED. DENTURES SOAKED IN THE CONTAINER. ORAL CARE DONE. V/S AND I&O TAKEN AND RECORDED.
--- NOTE | 2020-02-04 20:59 | NUR ---
RT IN pt ROOM FOR BREATHING TREATMENT.
--- NOTE | 2020-02-04 21:15 | NUR ---
PER MD TELEPHONE ORDER, OKAY TO LEAVE IV OUT.
--- NOTE | 2020-02-04 22:07 | NUR ---
1 PA TO USE THE BEDSIDE COMMODE USING WALKER. PATIENT IS BACK IN BED. PRIMARY RN X2 ARE WITH PATIENT.
--- NOTE | 2020-02-04 22:20 | NUR ---
SCHEDULED MEDICATIONS ADMINISTERED, ASSESSMENT COMPLETE, VS AND I/O'S COMPLETE. O2 TITRATED TO 4L WHILE SWALLOWING MEDICATIONS, BACK TO 2L AT REST. REPOSITIONED IN BED WITH PILLOWS. PATIENT STATES NO PAIN AT THIS TIME, DENIES ANY PAIN MEDICATIONS. IV REMOVED. K PAD ADJUSTED. CALL LIGHT IN REACH, BED IN LOW POSITION, SIDE RAILS UP FOR SAFETY. WILL CONTINUE FREQUENT CHECKS.
--- NOTE | 2020-02-05 | NUR ---
ROUNDED ON PATIENT. PT LAYING IN BED, EYES CLOSED, BREATHING EVEN AND UNLABORED. POSITIONED WITH PILLOWS ON EACH SIDE. 02 AT 2L NC. CALL LIGHT WITHIN REACH. NO APPARENT NEEDS AT THIS TIME, WILL CONT TO MONITOR
--- NOTE | 2020-02-05 00:07 | NUR ---
PATIENT WAS UP TO USE THE BEDSIDE COMMODE 1 PA. PATIENT IS BACK IN BED. RT EVELIN WAS WITH PATIENT.
--- NOTE | 2020-02-05 01:09 | NUR ---
PATIENT CALLED TO USE THE BEDSIDE COMMODE. PATIENT IS BACK IN BED. NO OTHER NEEDS AT THIS TIME. CALL LIGHT IN REACH.
--- NOTE | 2020-02-05 03:06 | NUR ---
ROUNDED ON PATIENT, LAYING IN BED WITH EYES CLOSED. PILLOWS SUPPORTING EACH SIDE OF PT. O2 IN PLACE, BREATHING EVEN AND UNLABORED. CALL LIGHT IN REACH, NO APPARENT NEEDS AT THIS TIME.
--- NOTE | 2020-02-05 04:29 | NUR ---
CALL LIGHT ANSWERED, PT UP TO BSC WITH 1PA AND FWW. ASSESSMENT COMPLETE, VITALS AND I/O'S COMPLETE. PRN PAIN MEDICATION ADMINISTERED FOR 5/10 LOWER BACK PAIN, K PAD IN PLACE, REPOSITIONED WITH PILLOWS. WARM BLANKET PROVIDED, PT DENIES ANY OTHER NEEDS AT THIS TIME
--- NOTE | 2020-02-05 05:10 | NUR ---
PATIENT ABLE TO SLEEP THIS SHIFT, PAIN MEDICATION ADMINSITERED x1 FOR 5/10 LOWER BACK PAIN. K PAD IN PLACE, FREQUENTLY REPOSITIONED. UP TO BSC WITH 1PA AND FWW. ABX INITIATED FOR BACTERIA IN URINE. 02 AT 2L NC WITH REST, TITRATED TO 4L WITH AMBULATION, MOVEMENT. SP02 REMAINS 93-98% THIS SHIFT. REDNESS NOTED ON BACK ON 02/02 HAS IMPROVED SIGNIFICANTLY. IV REMOVED, DOES NOT NEED TO BE REPLACED PER MD. USES CALL LIGHT APPROPRIATELY.
--- NOTE | 2020-02-05 07:10 | NUR ---
Pt resting supine in bed eyes closed appears to be sleeping comfortably. Call light and h2o in reach.
--- NOTE | 2020-02-05 08:48 | NUR ---
call light answered and patient wanted from bed to chair. bedding changed. bed side commode was used. warm blanket provided. fresh water given. call light in reach. no other needs at this time.
--- NOTE | 2020-02-05 08:59 | NUR ---
VITALS AND I&OS CHARTED
--- NOTE | 2020-02-05 09:06 | NUR ---
RT COLLECTED COVID 19 SWAB USING INCYTE WITH NO COMPLICATIONS. RT PLACED SWAB IN THE INCYTE FRIDGE AT THIS TIME.
--- NOTE | 2020-02-05 09:10 | NUR ---
PT SITTING UP IN CHAIR EATING BREAKFAST. AM MEDS ADMINISTERED AND ASSESSMENT COMPLETED. CALL LIGHT AND H2O IN REACH. PT REPORTS SOME PAIN TO LOW BACK, PO TYLENOL ADMINISTERED AND LIDODERM PATCH APPLIED TO AFFECTED AREA -SEE EMAR. CALL LIGHT AND H2O IN REACH. PT DENIES FURTHER NEEDS OR CONCERNS.
== END 2020-02-05 10:10 | DRG 189 ==
LOC: ED 09:42 → MS 09:44 → ED 12:40 → MS 17:24
PROVIDERS: ADMIT Student in an Organized Health Care Education/Training Program; ATTEND Student in an Organized Health Care Education/Training Program
DX: J96.21 Acute and chronic respiratory failure with hypoxia (principal); G93.41 Metabolic encephalopathy; J44.1 Chronic obstructive pulmonary disease with (acute) exacerbation; N39.0 Urinary tract infection, site not specified; M80.08XA Age-related osteoporosis with current pathological fracture, vertebra(e), initial encounter for fracture; Z20.828 Contact with and (suspected) exposure to other viral communicable diseases; R13.12 Dysphagia, oropharyngeal phase; I10 Essential (primary) hypertension; R29.6 Repeated falls; N32.81 Overactive bladder; I67.1 Cerebral aneurysm, nonruptured; C50.919 Malignant neoplasm of unspecified site of unspecified female breast; W19.XXXA Unspecified fall, initial encounter; Z66 Do not resuscitate; Z79.899 Other long term (current) drug therapy; Z79.51 Long term (current) use of inhaled steroids; Z87.891 Personal history of nicotine dependence
CPT/HCPCS: 36415; 36600; 51701; 70450; 70496; 70498; 71045; 71046; 72100; 74230; 80048; 80053; 81001; 82607; 82803; 83735; 84443; 84484; 85025; 85610; 85730; 92610; 92611; 93005; 93010; 94640; 94760; 94762; 97110; 97116; 97162; 97165; 97530; 97535; 99285-25; A9270; C9803; J0456; J1650; J1885; J1940; J2405; J2920; J2930; J3475; J3480; J7060; J7121; J7512; Q9967; U0003

== ENCOUNTER 2020-05-24 01:24 | Inpatient (IN) | payer MEDICARE, OTHER ==
[~2020-05-24] VITALS: Ht 157.5 cm; Wt 67.0 kg
[~2020-05-24 01:24] MED LIST changes: +ALBUTEROL0.63 MG/3 INH; +FUROSEMIDE20 MG PO; +LIDOCAINE PAIN1 EACH TD; +LO-DOSE ASPIRIN81 MG PO; +OXYBUTYNIN CHLO10 MG PO; +OXYCODONE HCL5 MG PO; +PERFOROMIS20 MCG/2 M INH; +PREDNISONE20 MG PO; +TURMERIC 450-51 EACH PO; +TYLENOL325 MG PO; +VENTOLIN HFA18 GM INH
--- OUTSIDE RECORDS SUMMARY | 2020-05-24 01:26 | XMS ---
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 \F\ NetsizeADRIANA PHONE: [phone] [facility]I [facility] 12/21/2017-Current PHONE: [phone] Jj has no Care Guidelines for this patient. EJose VISIT COUNT (12 MO.) 2 [facility] TOTAL 2 NOTE: Visits indicate total known visits. ED/UCC VISIT TRACKING (12 MO.) 05/24/2020 01:24 [facility] [place] TYPE: Emergency COMPLAINT: - SOB 01/29/2020 09:43 [facility] [place] TYPE: Emergency COMPLAINT: - ALTERED MENTAL STATUS INPATIENT VISIT TRACKING (12 MO.) 01/29/2020 17:24 [facility] [place] TYPE: Medical Surgical COMPLAINT: - ALTERED MENTAL STATUS DIAGNOSES: - Age-related osteoporosis with current pathological fracture, vertebra(e), initial encounter for fracture - Overactive bladder - Urinary tract infection, site not specified - Malignant neoplasm of unspecified site of unspecified female breast - Dysphagia, oropharyngeal phase - Metabolic encephalopathy - Chronic obstructive pulmonary disease with (acute) exacerbation - Acute and chronic respiratory failure with hypoxia - Contact with and (suspected) exposure to other viral communicable diseases - 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
[2020-05-24] MEDS ORDERED: SIMETHICONE80 MG PO (02:45)
[2020-05-24] MEDS ORDERED: NITROSTAT0.4 MG SL (02:45)
--- NOTE | 2020-05-24 04:35 | NUR ---
PT ARRIVED TO THE FLOOR VIA STRETCHER AT 0404. SHE WAS MOVED OVER 3PA TO THE BED VIA DRAW SHEET. VS TAKEN AND ENTERED. PT IS ORIENTED TO CALL LIGHT. COMPLETED ADMISSION HX. PRIMARY RN MAGNOLIA IS IN THE ROOM WITH PT.
--- NOTE | 2020-05-24 06:25 | NUR ---
PT CALLED SAYING SHE NEEDS TO URINATE. ASKED PT IF SHE FEELS STRONG ENOUGH TO STAND AND SHE SAID "I DON'T THINK SO" OFFERED THE BED LANCASTER AND SHE AGREED. 2PA TO PUT PT ON BED LANCASTER. SHE WILL CALL WHEN SHE IS DONE, CALL LIGHT IN HAND.
--- NOTE | 2020-05-24 06:43 | NUR ---
PATIENT ARRIVED SHORTLY AFTER 4AM TO MED/SURG. PATIENT'S RESPIRATIONS WERE IN THE 30'S ON ARRIVAL, BUT SETTLED DOWN WHEN SHE WAS STILL AND [id number] A MINUTE. PATIENT IS ON 3L/NC CHRONIC AND IS ON THE SAME HEAR SATTING AT 97% ON CONTINUOUS PULSE OX. PATIENT ON TELE#6 AND IS IN SR 70'S TO 90'S. PATIENT'S LUNGS ARE TIGHT WITH INSPRATORY AND EXPIRATORY WHEEZES. PATIENT'S 20G IV FLUSHES WELL AND LR IS RUNNING AT 75MLS/HR. PATIENT IS CURRENTLY TRYING TO USE THE BED LANCASTER SHE IS INCONTINENT AT BASELINE AND WEARS ATTENDS. PATIENT SAYS SHE HAS CHRONIC LOWER LEG EDEMA WITCH IS 3+ BILAT CURRENTLY. CALL LIGHT IS IN REACH AT THIS TIME.
--- NOTE | 2020-05-24 06:58 | NUR ---
2PA WITH MAGNOLIA RN TO GET PT OFF BEDPAN, BOOSTED PT AND CALL LIGHT IS CLOSE. PT DENIES FURTHER NEEDS.
--- NOTE | 2020-05-24 07:00 | NUR ---
PATIENT REQUESTING SOMETHING TO HELP HER BREATH, REPIRATORY RATE HAS INCREASED FROM 24 T0 38BPM. PATIENT'S LUNG CUMMINS ARE REALLY TIGHT AND INSP AND EXP WHEEZES HEARD FAINTLY THROUGHOUT. DR. RICHARDS WAS CALL AND DUONEBS WERE ORDERED Q2 PRN. 0700 NEB STARTED AND PATIENT IN ARESOL ISOLATION, REPORT GIVEN TO TESSY FLORES.
--- NOTE | 2020-05-24 07:15 | NUR ---
BEDSIDE REPORT FROM ALAN RN, PT GETTING NEB AT THIS TIME PER HER REQUEST FOR TIGHT CHEST AND TACHEPNIA, 3L O2 CHRONIC. IN FOR PNEMONIA. FAMILY ALSO CALLED THIS AM AT AROUND CHANGE OF SHIFT FOR REPORT, UPDATE GIVEN.
--- NOTE | 2020-05-24 09:23 | NUR ---
2PA WITH P/T PATIENT TO BSC. PATIENT VERY WEAK AND LEGS SWOLLEN, PATIENT UNABLE TO HOLD HERSELF UP, WAS ABLE TO SIT ON BSC INDEPENDENTLY. TEL D/C LACI STILL. PATIENT BACK TO BED. CALL YOLA IN REACHDR ADAMES IN ROOM
--- NOTE | 2020-05-24 09:25 | NUR ---
ORDER NOTED TO DC TELE AT THIS TIME. REMOVED.
--- NOTE | 2020-05-24 10:48 | NUR ---
this rn in with pt, iv abx started - discussed plan of care with pt. doug le noted today - miralax given per order with ensure juice. kcl pills hard for pt to swallow so rn crushed and gave in pudding. toll. well. pt reports waking early and would like to rest now. call light in reach.
--- NOTE | 2020-05-24 12:46 | NUR ---
pt sat up and repositioned for meal. denies needs. iv fluids d/c only abx running. legs elevated.
[2020-05-24] MEDS ORDERED: SYMBICORT 16010.2 GM INH (14:01)
[2020-05-24] MEDS ORDERED: CALCIUM500 MG PO (14:03)
[2020-05-24] MEDS ORDERED: MIRALAX17 GM PO (14:04)
[2020-05-24] MEDS ORDERED: NITROGLYCERIN0.4 MG SL (14:05)
[2020-05-24] MEDS ORDERED: SENNA LAX8.6 MG PO (14:06)
[2020-05-24] MEDS ORDERED: MILK OF MA400 MG/5 M PO (14:08)
[2020-05-24] MEDS ORDERED: LAXATIVE SUPPOS10 MG PR (14:09)
[2020-05-24] MEDS ORDERED: FLEET ENEMA133 ML PR (14:09)
[2020-05-24] MEDS ORDERED: ARTIFICIAL TEAR15 M3 OU (14:10)
--- NOTE | 2020-05-24 14:12 | NUR ---
PATIENT AWAKE IN BED, VITALS AND I&OS CHARTED. INCONT OF URINE, BRIEF CHANGED. CALLLIGHT IN REACH, NO OTHER NEEDS AT THIS TIME
--- NOTE | 2020-05-24 14:14 | NUR ---
Medications reconciled using MARS from facility
--- NOTE | 2020-05-24 14:31 | NUR ---
pt watching tv, c/o congestion in chest. robutussin and tylenol given for comfort with cough and chest tightness. o2 2l nc. pt denies other needs, enc. fluids.
--- NOTE | 2020-05-24 17:55 | NUR ---
pt on chronic 02 - 2l per rahman order, sl iv with abx. inc of urine and sm bm today noted. dc tele.
--- NOTE | 2020-05-24 17:58 | NUR ---
PATIENT AWAKE IN BED, FINISHED WITH DINNER. KATHI SNA DI&OS CHARTED. PATIENT INCONTINENT OF URINE, BRIEF CHANGED, RISHI CARE DONE. CALL LIGHT INR REACH, NO OTHER NEEDS AT THSI TIME
--- NOTE | 2020-05-24 19:10 | NUR ---
PT LYING IN BED. SHIFT REPORT RECIEVED BY RN. CALL LIGHT IN REACH.
--- NOTE | 2020-05-24 20:59 | NUR ---
PT LYING IN BED. O2 SAT 92% 2L NC. HR 88. RR WNL WITH UNLABORED BREATHING. IV SALINE LOCKED, BLOOD RETURN NOTED. PATENT AND INTACT. CALL LIGHT IN REACH.
--- NOTE | 2020-05-24 22:38 | NUR ---
PT LYING IN BED. REPLACED ATTENDS. INCONT X1. PT DENIES PAIN. +3 EDEMA ON BLE NOTED. ELEVATED LEGS. O2 SAT 92% 2L NC. PT C/O SOB WHILE LAYING SUPINE. RR WNL. LUNG SOUNDS CLEAR WITH SOME WHEEZING ON R LOWER LOBE. NEB TREATMENT DONE BY RT EARLIER IN SHIFT. REPOSITIONED PT IN BED. HOB ELEVATED. PT STATES "FEELS BETTER". SCHEDULED MEDS GIVEN. PRN COUGH MED ADMINISTERED PER REQUEST. ASSESSMENT COMPLETE. I AND O'S DONE. EDUCATION ON USE OF CALL LIGHT GIVEN. PT VERBALIZED UNDERSTANDING. CALL LIGHT IN REACH.
--- NOTE | 2020-05-24 22:45 | NUR ---
INFORMED BY RN BENIGNO pt'S DAUGHTER TEMO (UNSURE OF CORRECT SPELLING) CALLED AND ASKED FOR UPDATE. PHONE NUMBER [phone]. BECAUSE OF TIME OF NOTIFICATION, WILL NOTIFY DAYSHIFT RN OF DAUGHTER'S ATTEMPT TO CALL. PER CARLOS, OKAY TO GIVE DAUGHTER UPDATE.
--- NOTE | 2020-05-24 23:00 | NUR ---
PT LYING IN BED. BEDPAN USE PER REQUEST. REPLACED ATTENDS.REPOSITIONED IN BED. PT LYING ON THE RIGHT SIDE. DENIES SOB. O2 SAT 95% 2L NC. CALL LIGHT IN REACH. NO FURTHER NEEDS.
--- NOTE | 2020-05-24 23:21 | NUR ---
INFORMED BY TESSY PELAEZ, pt REPORTS "BEING UNCOMFORTABLE". IN ROOM TO ASSESS, O2 SAT MAINTAINING 86-89% AFTER ENCOURAGEMENT TO COUGH AND DEEP BREATH. pt TITRATED TO 2.5LNC, NOW MAINTAINING IN LOW 90'S. pt REPOSITIONED IN BED WITH HELP FROM TESSY PELAEZ, BILATERAL HIPS FLOATED. HOB ELEVATED. PRN TYLENOL ALSO GIVEN PER pt REQUEST. NO FURTHER NEEDS, SPO2 IN PLACE TO MONITOR, CALL LIGHT IN REACH.
--- NOTE | 2020-05-25 00:42 | NUR ---
PT LYING IN BED. EYES CLOSED. RR WNL 18 WITH UNLABORED BREATHING. CALL LIGHT IN REACH.
--- NOTE | 2020-05-25 01:17 | NUR ---
iv pump alarming, issue resolved. iv site wnl, abx resumed. rr even and unlabored, no distress noted. 2lnc in place. call light in reach.
--- NOTE | 2020-05-25 02:30 | NUR ---
PT LYING IN BED. VS COMPLETE. RR 24-28. O2 SAT 92-95% 2L NC. PT STATES ALWAYS HAVING SOB BUT TOLERABLE. CALLED RT FOR PRN CARLIN MONTEZ. REPLACED ATTENDS, REPOSITIONED IN BED. LYING SUPINE.
--- NOTE | 2020-05-25 03:07 | NUR ---
PT LYING IN BED. NEB TREATMENT COMPLETE BY RT. RT STATED THAT HER RR STILL 28 BUT TOLERABLE. WILL CONTINUE TO MONITOR.
--- NOTE | 2020-05-25 03:30 | NUR ---
IV ABX COMPLETE, SITE SALINE LOCKED AND WNL. 2LNC IN PLACE, RR 24. NO OUTWARD SIGNS OF DISTRESS NOTED. CALL LIGHT IN REACH.
--- NOTE | 2020-05-25 04:47 | NUR ---
PT LYING IN BED. EYES CLOSED. RR 24. SCHEDULED MED GIVEN. CALL LIGHT IN REACH.
--- NOTE | 2020-05-25 06:35 | NUR ---
PT LYING IN BED. O2 SAT 92-96% 2L NC. RR 24. SOB NOTED. REPLACED ATTENDS INCONT X1. REPOSITIONED PT IN BED LYING ON LEFT SIDE. CALL LIGHT IN REACH. NO FURTHER NEEDS.
--- NOTE | 2020-05-25 06:45 | NUR ---
ROUNDED ON pt, LEAKING AT IV SITE NOTED. IV ON STANDBY. CARDIOPULMONARY SPECIALIST BAILEY AND TESSY PELAEZ IN ROOM TO ATTEMPT NEW IV.
--- NOTE | 2020-05-25 07:00 | NUR ---
THIS RN IN TO START AN IV. 20G PLACED IN THE L WRIST. IV KELLEY BLOOD AND FLUSHES EASILY. IVF RESTARTED. TESSY DALEY DC'D PREVIOUS IV LOCATED IN L WRIST. PT REPORTS NO FURTHER NEEDS, WILL CONTINUE PLAN OF CARE.
--- NOTE | 2020-05-25 07:18 | NUR ---
NEW 20GAUGE IV PLACED TO LEFT FOREARM BY TESSY PELAEZ. IV ABX ALSO RESUMED AT THIS TIME. SITE WNL.
--- NOTE | 2020-05-25 09:15 | NUR ---
Spoke with Mar for CM assessment. She is able to answer questions, but cont. to state she lives at [facility]. Pt does not live at [facility] and resides at [place], she is not aware of this. Pt uses a shower chair and has a walker. She denies using a walker or needing any assist to walk. Per PT, pt is a 2 person assist. I recieved a call from Niecy at [facility] and she would like updated notes. She confirms pt is a 2 person assist and has memory issues. Per 08:[address] García, but will return to T in 1-2 days. Niecy updated of this.
--- NOTE | 2020-05-25 10:26 | NUR ---
REPORT RECEIVED FROM NIGHT RN AND PT. CARE RESUMED. PT. RECIEVING NEB. TX AND RT IN THE ROOM. PT. ATTEMPTED ACAPELLA, BUT WAS EXTREMELY WEAK. LUNGS DIM. THROUGHOUT AND AUDIBLE WHEEZES PRESENT. PT. STOOD WITH RN ASSIST, BUT UNABLE TO PIVOT OR WALK DUE TO WEAKNESS. PT. ORIENTED AND ALERT. IV SITE WNL AND FLUSHED WELL. BLE +2 EDEMA PRESENT. MORNING MEDS ADMIN. AND PT. LEFT RESTING IN BED WITH CALL LIGHT IN REACH.
--- NOTE | 2020-05-25 14:14 | NUR ---
PATIENT IN CHAIR TALKING ON PHONE. FRESH WATER GIVEN. VITALS AND I&O'S CHARTED. CALL LIGHT IN REACH. NO FURTHER NEEDS AT THIS TIME.
--- NOTE | 2020-05-25 14:36 | NUR ---
DUE TO AGP-UNABLE TO VISIT AT THIS TIME. WILL CHECK BACK AGAIN
--- NOTE | 2020-05-25 14:42 | NUR ---
PATIENT ASSESSMENT COMPLETED. PT. AMBULATED WITH 2 PERSON ASSIST AND FWW FROM THE COMMODE TO BED. VERY WEAK. LUNGS DIM. IN THE BASES AND BREATHING SHALLOW. EDEMA PRESENT BLE AND KARISSA HOSE IN PLACE. PT. DENIES PAIN. IV SITE WNL AND IV ABX RUNNING. PT. ORIENTED TO SELF, EVENT AND LOCATION. PT. ASSISTED WITH REPOSITIONING PT. LEFT RESTING IN BED WITH CALL LIGHT IN REACH.
--- NOTE | 2020-05-25 15:30 | NUR ---
MADE RECOMENDATION TO CLINICAL PHARMACY TO REQUEST DUONEBS FOR HOME REGIMEN. BASED ON HISTORY OF EXACERBATIONS PT SHOULD BE ON ANTICHOLINERGIC ACCORDING TO COPD GOLD GUIDELINES.
--- NOTE | 2020-05-25 15:32 | NUR ---
Update from Hung in [place], he is recommending a duoneb for this patient. He will speak with pharmacy.
--- NOTE | 2020-05-25 15:53 | NUR ---
PT. USED CALL LIGHT APPROPRIATELY FOR ASSISTANCE TO VOID. AMBULATED TO BEDSIDE COMMODE WITH FWW AND 2 PERSON ASSIST. PT. ASSISTED WITH REPOSITIONING TO CHAIR. VOIDED 500ML CLEAR YELLOW URINE. PT. LEFT RESTING IN CHAIR WITH CALL LIGHT IN HAND.
--- NOTE | 2020-05-25 16:15 | NUR ---
Updated notes and H&P sent to [facility].
--- NOTE | 2020-05-25 19:18 | NUR ---
RECEIVED REPORT FROM TESSY AKBAR. pt RESTING IN CHAIR. REQUESTED TO GO BACK TO BED, OKAY TO WAIT UNTIL REPORT WAS FINISHED FOR EXTRA STAFF. CALL LIGHT WITHIN REACH. WHITEBOARD UPDATED.
--- NOTE | 2020-05-25 20:10 | NUR ---
pt REQUESTED TO VOID IN THE BATHROOM THEN BACK TO BED. HEAVY 2PA, pt HAS DIFFICULTY GETTING HER FEET UNDERNEATH HER AND MOVING WITH THE WALKER. REFUSED O2 WHILE AMBULATING. GOT WITHIN 2 FEET OF BED AND BECAME VERY WEAK. ASSISTED BACK TO BED. O2 SAT LOW 80'S POST AMBULATION, NC REPLACED TITRATED UP FOR RECOVERY, pt RECOVERED WITHIN 2 MINUTES, RESTING ON 2L O2 WITH SATS MID 90'S. pt DID HAVE INCREASED BREATHING THAT STARTED WHEN SHE BECAME VERY WEAK. WORK OF BREATHING DECREASED WITH REST. ASSESSMENT DONE. VITALS AND I&O RECORDED. pt DOES NOT HAVE EYE DROPS AVAILABLE AT THIS TIME. PM CARES DONE. CALL LIGHT IN HAND.
--- NOTE | 2020-05-25 20:49 | NUR ---
ROUNDED ON pt. REPORTED 6/10 PAIN IN RIGHT LEG, PRN GIVEN (SEE MAR). NO FURTHER REQUESTS AT THIS TIME. CALL LIGHT IN HAND.
--- NOTE | 2020-05-25 22:48 | NUR ---
IN TO GIVE ABX. pt RESTING IN BED WITH EYES CLOSED, RESPIRATIONS REGULAR AND UNLABORED. IV ANTIBIOTIC INFUSING PER ORDERS. CALL LIGHT WITHIN REACH.
--- NOTE | 2020-05-25 23:32 | NUR ---
ROUNDED ON pt. RESTING IN BED WITH EYES CLOSED, RESPIRATIONS REGULAR AND UNLABORED. IV INFUSING. CALL LIGHT WITHIN REACH.
--- NOTE | 2020-05-26 00:57 | NUR ---
ROUNDED ON pt. RESTING IN BED WITH EYES CLOSED, RESPIRATIONS REGULAR AND UNLABORED. CALL LIGHT WITHIN REACH.
--- NOTE | 2020-05-26 02:57 | NUR ---
ROUNDED ON pt. RESTING WITH EYES CLOSED, RESPIRATIONS REGULAR AND UNLABORED. CALL LIGHT WITHIN REACH.
--- NOTE | 2020-05-26 04:33 | NUR ---
CALL LIGHT ON. pt STATED "I NEED OXYGEN!" IMMEDIATELY IN TO ASSESS. pt LAYING IN BED WITH HOB SLIGHTLY ELEVATED. 2L O2 VIA NC IN PLACE. IMMEDIATELY TITRATED UP FOR COMFORT. O2 SAT 94%. LABORED BREATHING. RAISED HOB. pt REPORTED RELIEF. "I JUST WOKE UP AND NEEDED OXYGEN" ABLE TO TITRATE BACK TO 2L IN A FEW MINUTES. pt ROLLED FOR DEPENDS CHANGE, INCONT VOID. PROVIDED PILLOW FOR UNDER LEGS. ASSESSMENT DONE. WHEEZING HEARD THROUGHOUT. pt REQUESTED A NEB TREATMENT. RT INFORMED. SITTING IN BED WATCHING TV. CALL LIGHT IN HAND.
--- NOTE | 2020-05-26 05:00 | NUR ---
VITALS DONE. pt REPORTS "I'M FEELING MUCH BETTER" NO REQUESTS AT THIS TIME. CALL LIGHT WITHIN REACH.
--- NOTE | 2020-05-26 07:24 | NUR ---
REPORT RECEIVED FROM TESSY JAIMES. PT RESTING IN BED WITH EYES CLOSED, RESPIRATIONS EVEN WITH MILD SNORING. PT REMAINS ON 2L O2 BY WV WITH O2 SATRUATIONS OF 94%. HEAD OF BED ELEVATED TO 30 DEGREES. BED RAILS UP. CALL LIGHT WITHIN REACH. PT ALLOWED TO REST.
--- NOTE | 2020-05-26 09:01 | NUR ---
MORNING ASSESSMENT AND MEDICATION DUE. PT RESTING IN BED WITH HEAD OF BED ELEVATED TO 47 DEGREES. PT REPORTS SHE HAS FINISHED BREAKFAST. PT DENIES PAIN AND NAUSEA. AUDIBLE WHEEZES NOTED. ACCESSORY MUSCLE USE NOTED. PT VERY SHORT OF BREATH WITH TALKING, ABLE TO VERBALIZES 2-3 WORDS AT A TIME. O2 SATURATION AT 84% ON 2 LITERS. O2 INCREASED TO 4L O2 BY NC AND OXYGEN SATURATION CLIMBS TO 92-94%. CORNET USE DEMONSTRATED. PT PLACED ON CPOX FOR ONGOING O2 SATURATION MONITORING. STRONG COUGH NOTED. FINGRES IN HANDS NOTED TO BE DUSKY. CLUBBED FINGERNAILS NOTED. EDEMA TO LOWER EXREMITIES CONTINUES. ELEVATED ON PILLOWS. PT VERY WEAK IN LEGS, ABLE TO GRASP ITMES WITH ARMS. DEPENDS DRY AT THIS TIME, PT STATES "WELL I SHOULD BE WET BY NOW BUT I'M NOT." PT REMAINS IN BED AT THIS TIME REPORTING WEKNESS AND FEELING "REALLY TIRED." TACHYPEA IMPROVES WITH REST. SWALLOWING DIFFICULTIES NOTED WITH MEDICATIONS. PHARAMCY CALLED AND STATES OK TO CRUSH PTS MEDICATIONS, MEDICATIONS CRUSHED AND GIVEN WITH PUDDING, SWALLOWING IMPROVES. PT EDUCATION DONE REGARDING TUCKING CHIN. PT NEEDS FREQUENT REMINDERS. NO ADDITIONAL REQUESTS OR COMPLAINTS. CALL LIGHT IN PTS HAND. BED RAILS UP. HEAD OF BED ELEVATED TO 47 DEGREES.
--- NOTE | 2020-05-26 09:20 | NUR ---
Per 829 report, pt may return to [facility]. Dr. Chu will see. I received a message from [facility] and they would like updated notes. Updated Dr. Chu has not seen this pt as of yet, I will send notes when they are updated.
--- NOTE | 2020-05-26 10:21 | NUR ---
THIS RN TO ROOM TO CHECK ON PT. PT DENIES PAIN AND NAUSEA. PUMP ALARMING, ABX INFUSION AND FLUSH COMPLETE. CEFEPIME STARTED (SEE MAR). PT O2 SATURATION AT 95% ON 4L O2 BY NC. O2 WEANED TO 3L, OXYBEN SATURATION MAINTAINING BETWEEN 91-94% ON 2L O2 BY NC. PT DENIES ADDITIONAL REQUESTS OR COMPLAINTS. CALL LIGTH WITHIN REACH. BED RAILS UP. HEAD OF BED ELEVATED TO 31 DEGREES.
--- NOTE | 2020-05-26 10:35 | NUR ---
PATIENT IN BED WATCHING TV. NO VOID AT THIS TIME, WILL CHECK IN A LITTLE LATER. FRESH WATER GIVEN. WASH CLOTH GIVEN. VITALS AND I&O'S CHARTED. CALL LIGHT IN REACH. NO FURTHER NEEDS AT THIS TIME.
--- NOTE | 2020-05-26 11:46 | NUR ---
THIS RN TO ROOM TO CHECK ON PT. PT UP TO CHAIR VISITING WITH HER SON. AUDIBLE WHEEZES NOTED AT TIMES. PT CONTINUES TO TOLERATE 3L O2 BY NC WITH O2 SATURATIONS 91-95%. PHYSICAL THERAPIST REPORTS PT HAD INCREASED WEEZING AND SHORTNESS OF BREATH WITH ACTIVITY AND WHEELCHAIR RIDE BUT WAS ABLE TO MAINTAIN OXYGEN SATURATIONS ABOVE 90%. PT DENIES PAIN AND NAUSEA. PT DENIES ADDITIONAL REQUESTS OR COMPLAINS. CALL LIGHT WITHIN REACH. PTS SON AT BEDSIDE.
--- NOTE | 2020-05-26 12:20 | NUR ---
Discussed with Rn if this pt will leave today. She states she feels pt will stay as she has required increased 02. I spoke with PT and they did not feel pt would be able to transport per [facility] van as she is a 2 person assist. They are concerned she would fall out of a wc.
--- NOTE | 2020-05-26 13:18 | NUR ---
THIS RN TO ROOM TO CHECK ON PT. PT UP TO CHAIR. PT DENIES PAIN AND NAUSEA. O2 SATURATION AT 96% ON 3L O2 BY NC. PT WEANED TO 2L O2 BY NC. PT DENIES ADDITIONAL REQUESTS OR COMPLAINTS AND REQUESTS A SHOWER. CATALYST RECOVERY OPERATOR TO BEDSIDE TO ASSIST PT WITH SHOWER. NO ADDITIONAL REQUESTS OR COMPLAINTS. CALL LIGHT WITHIN REACH. CATALYST RECOVERY OPERATOR AND STUDENT RN AT BEDSIDE.
--- NOTE | 2020-05-26 14:14 | NUR ---
Spoke with Dr. Chu, pt will not dc until tomorrow. Notes faxed to [facility] for update.
--- NOTE | 2020-05-26 14:30 | NUR ---
AFTERNOON ASSESSMENT DUE. PT UP TO CHAIR, FINISHED WITH SHOWER. IV ABX RESUMED. PT DENIES PAIN AND NAUSEA. PT CONCERNED ABOUT HER BREATHING, PT UNABLE TO REMEMBER WHY SHE IS AT THE HOSPITAL, BUT OTHERWISE ORIENTED. PT REORIENTED TO HER DIAGNOSIS OF PNEUMONIA. PT VERBALISES UNDERSTANDING. O2 SATURATION AT 93% ON 2L O2 BY NC. WORK OF BREATHING IMPROVIED, INCREASES WITH TALKING AND ACTIVITY. PT DEMONSTRATES USE OF I.S. PT CONCERNED ABOUT EDEMA IN RIGHT LOWER LEG. PT ASSURED THAT SHE IS RECEIVING HER LASIX. EDEMA APPEARS IMPROVED TO THIS RN, NOW TRACE IN LEFT LOWER EXTREMITY AND +1 TO RIGHT LOWER LEG. KARISSA HOSE PLACED BACK ON PTS LEGS. PT REMAINS UP TO CHAIR, WATCHING TV. CPOX IN PLACE. PT DENIES ADDITONAL REQUESTS OR COMPLAINTS. CALL LIGHT WITHIN REACH.
--- NOTE | 2020-05-26 14:56 | NUR ---
PT ALERT, AWARE OF MY PRESENCE. HAVE KNOWN PT, AND SHE SEEMS UNAWARE WHO I AM. PT SAYS SHE HAS SLEPT WELL, SMILES AND REQUESTED PRAYER. WILL FOLLOW
--- NOTE | 2020-05-26 15:16 | NUR ---
PT CALL LIGHT ON. PT REQUESTS ASSISTANCE UP TO RESTROOM. HEAVY 2 PERSON ASSIST UP TO BEDSIDE COMODE. PT VOIDS 500ML CLEAR YELLOW URINE. RISHI CARE DONE. DEPENDS IN PLACE. 1 PERSON ASSIST WITH FRONT WHEEL WALKER BACK TO CHAIR. PT DOES NOT USE WALKER CORRECTLY. PULLS ON WALKER TO TRY TO GET UP FROM COMODE AND FLOPS INTO CHAIR WITHOUT FINDING HANDELS WHEN SHE THINKS SHE IS READY. PT VERY PRONE TO FALLS. O2 SATRUATIONS DROP TO 89% WITH ACTIVITY, RECOVERING TO 92% ON 2L O2 BY NC ONCE PT IS RESTING FOR 5 MINUTES. PUMP ALARMING, IV ABX INFUSION COMPLETE. IV SAILINE LOCKED, ALCOHOL CAP APPLIED. PT DENIES ADDITIONAL REQUESTS OR COMPLAINTS. CALL LIGHT IN PTS HAND.
--- NOTE | 2020-05-26 16:32 | NUR ---
PTS SON RUBEN CALLED FOR UPDATE. RUBEN UPDATED ON PTS STATUS AND PLAN OF CARE AND STATES HIS QUESITONS HAVE BEEN ANSWERED.
--- NOTE | 2020-05-26 17:20 | NUR ---
THIS RN TO ROOM TO CHECK ON PT. O2 AT 94% ON 2L O2 BY NC WITH HEART RATE OF 89. PT REMAINS UP TO CHAIR, ANTICIPATING DINNER. PT DENIES ADDITIONAL REQUESTS OR COMPLAINTS. CALL LIGHT IN PTS HAND.
--- NOTE | 2020-05-26 17:59 | NUR ---
PATIENT IN CHAIR FOR DINNER. VITALS AND I&O'S CHARTED. FRESH WATER GIVEN. CALL LIGHT IN REACH. NO FURTHER NEEDS AT THIS TIME.
--- NOTE | 2020-05-26 18:31 | NUR ---
PT HERE FOR PNEUMONIA. PT UP TO CHAIR AND WITH PHYSICAL THERAPY WITH 2 PERSON ASSIST AND FRONT WHEEL WALKER. PT NEEDS CONSIDERABLE SUPPORT WITH ANY ACTIVITY. PT HAD DESATURATION AND INCRAESED WORK OF BREATING EPISODE THIS MORNING AND WAS INCREASED TO 4L O2 BY NC. OXYGEN SATURATION IMPROVING THROUGHOUT SHIFT, PT NOW ON 2L O2 BY NC BUT CONTINUES TO DESATURATE AND SHOW INCREASED WORK OF BREATHING WITH ACTIVITY. PT TOLERATING SOFT DIET WITH GOOD APPITITE. IV ABX GIVEN THIS SHIFT. PT CONTINUES TO HAVE INCONTINANCE AND CONFUSION/FORGETFULNESS PER BASELINE. PT VOIDING QUANTITY SUFFICIENT. PT USES CALL LIGHT INCONSISTANTLY.
--- NOTE | 2020-05-26 18:40 | NUR ---
THIS RN TO ROOM TO CHECK ON PT. PT BACK IN BED RESTING WITH HEAD OF BED ELEVATED TO 30 DEGREES. O2 SATURATION AT 94% ON 2L O2 BY NC. PT DENIES PAIN NAUSEA AND SHORTNESS OF BREATH. NO ADDITIONAL REQUESTS OR COMPLAINTS. BED RAILS UP. CALL LIGHT WITHIN REACH.
--- NOTE | 2020-05-26 19:43 | NUR ---
REPORT RECEIVED FROM DAY SHIFT RN. PT LYING IN BED ALERT AND ORIENTED. CPOX IN PLACE. SpO2 94% ON 2L/NC. HR 80'S. DENIES NEEDS AT THIS TIME. WHITE BOARD UPDATED. CALL LIGHT IN REACH.
--- NOTE | 2020-05-26 21:45 | NUR ---
PT TWO PERSON HEAVY ASSIST WITH FWW TO BSC TO VOID. RISHI CARE DONE BY STAFF. BACK TO BED, GORDO WELL. PT ABLE TO BEAR WEIGHT AND PIVOT. DYSPNEA ON EXERTION NOTED. SpO2 DOWN TO 88% ON 2L/NC. PT ABLE TO RECOVER WELL AFTER RESTING FOR A COUPLE MINUTES. SpO2 BACK TO 93-94%. EXPIRATORY WHEEZES HEARD AFTER TRANSFER. CPOX IN PLACE. ASSESSMENT COMPLETE. PT DENIES PAIN, NAUSEA, OR SOB. NO FURTHER NEEDS AT THIS TIME. BED ALARM FOR SAFETY. CALL LIGHT IN HAND.
--- NOTE | 2020-05-26 22:25 | NUR ---
PT CALLED, WANTED SOMETHING FOR LEFT JAW PAIN. DENIED CHEST DISCOMFORT, STATED THAT HER LEFT JAW HAS BEEN HURTING OFF AND ON FOR "COUPLE WEEKS". ASKED PT IS SHE HAS DENTAL PAIN, SHE DENIED, RUBBING UP ALONG HER LEFT EAR. MED WITH 500 MG TYLENOL, CUT IN APPLESAUCE PT UNABLE TO TAKE TYLENOL WHOLE IN APPLESAUCE.
--- NOTE | 2020-05-26 23:12 | NUR ---
PT CALLED, SAID HER JAW WAS STILL HURTING. ASSESSED IN HER MOUTH, NO SORES SEEN, NO REDDNESS ALONG THE JAW LINE. WARM COMPRESS GIVEN, SHE STATED THAT IT "FELT" GOOD, PRIMARY RN PARAM AWARE.
--- NOTE | 2020-05-26 23:26 | NUR ---
NOTIFIED BY DEDENTER THAT PT COMPLAINING OF "A DULL ACHE" IN LEFT LOWER JAW. MILD SWELLING IN CHEEK NOTED. NO LESIONS INSIDE OF MOUTH SEEN. PT REPORTS THE PAIN HAS BEEN GOING ON FOR SEVERAL WEEKS. WARM COMPRESS PROVIDED BY DEDENTER. PT STATES "THAT FEELS BETTER".
--- NOTE | 2020-05-27 00:22 | NUR ---
PT RESTING IN BED AT THIS TIME WITH EYES CLOSED, NAD. SpO2 96% ON 2L/NC. HR 70'S. BED ALARM FOR SAFETY.
--- NOTE | 2020-05-27 03:40 | NUR ---
PT RESTING IN BED WITH EYES CLOSED, NAD.
--- NOTE | 2020-05-27 05:33 | NUR ---
VS AND I&O COMPLETE. PT INCONTINENT OF URINE. ATTENDS CHANGED WITH 2PA. RISHI CARE DONE BY STAFF. CLEAN BRIEF PLACED. INCREASED RR NOTED WITH ACTIVITY IN BED. PT DENIES PAIN, NAUSEA, OR SOB. O2 2L/NC IN PLACE SpO2 90-94%. PT REPOSITIONED, HOB ELEVATED. PT STILL C/O "ACHING" LOWER LEFT JAW PAIN. PT REFUSES WHEN OFFERED PRN TYLENOL FOR PAIN. FRESH WATER PROVIDED. NO FURTHER NEEDS AT THIS TIME. CALL LIGHT IN REACH.
--- NOTE | 2020-05-27 07:08 | NUR ---
REPORT RECEIVED FROM TESSY VIRGEN. PT RESTING IN BED ON BACK WITH HEAD OF BED ELEVATED TO 31 DEGREES. RESPIRATIONS EVEN WITH OCCATIONAL SNORING NOTED. O2 AT 94% ON 2L O2 BY NC. HEART RATE OF 83. BED RAILS UP. CALL LIGHT WITHIN REACH. PT ALLOWED TO REST.
--- NOTE | 2020-05-27 07:51 | NUR ---
MORNING ASSESSMENT AND MEDICATION DUE. PT AWAKE AND REPORTS HER BREATHING IS FEELING "BETTER" TODAY. RR NOTED TO BE 20-24 WHILE RESTING IN BED. PT DENIES PAIN AND NAUSEA. OXYGEN SATURATION NOTED TO BE 94% ON 2L O2 BY NC. KARISSA HOSE PLACED BACK ON PT. 2 PERSON HEAVY ASSIST UP TO BEDSIDE COMODE. PT ABLE TO STAND BUT HAS TROUBLE SHUFFELING FEET. PT VOIDS 600ML CLEAR YELLOW URINE WITH OUT ISSUE. NO SKIN BREAK DOWN NOTED ON COCCYX OR GLUTEAL AREA. RISHI CARE DONE. BARRIER CREAM APPLIED. FRESH DEPENDS IN PLACE. 2 PERSON HEAVY ASSIST UP TO CHAIR. PT BECOMES AUDIBLY WEEZY AND TACHYPNIC WITH ACTIVITY, RR UP TO 32, OXYGEN SATURATION DECLINES TO 88% ON 2L. PT TITRATED UP TO 4L WITH ACTIVITY AND RECOVERS QUICKLY. ONCE UP TO CHAIR AND RESTING PTS RESPIRATORY RATE RETURNS TO 20-24 WITHIN 5 MINUTES. O2 SATURATION RETURNS TO 92-94% ON ROOM AIR. LUNGS SOUNDS CLEAR IN UPPER LOBES WITH OCCATIONAL UPPER AIRWAY WHEEZES. SCATTERED CRACKES NOTED IN LOWER LOBES. NON PRODUCTIVE COUGH NOTED. IV ASSESSED, FOR ABX ADMINISTRATION. LEAKING AND PAINFUL WITH FLUSHING. IV DC'D PER PROTOCOL, GAUZE AND COBAN APPLIED. NEW IV STARTED PER PROTOCOL IN RIGHT FORARM. BRISK BLOOD RETURN NOTED. FLUSHES WELL, IV ABX GIVEN (SEE MAR). PT ORIENTED TO ALL, BUT FORGETFUL AT TIMES. CORNET USE DEMONSTARTED. MEDIATIONS GIVEN (SEE MAR), PHARMACIST STATES OK TO CRUSH. MEDICATIONS CRUSHED AND GIVEN IN APPLE SAUCE. PT EATING BREAKFAST NO ADDITIONAL REQUESTS OR COMPLAINTS. CALL LIGHT WITHIN REACH.
--- NOTE | 2020-05-27 08:28 | NUR ---
PATIENT UP IN CHAIR FOR BREAKFAST. WASHCLOTH PROVIDED FOR FACE AND HANDS. ORAL CARE PROVIDED. LINENS CHANGED. PATIENT WOULD LIKE A SHOWER TODAY. CALLLIGHT IN REACH, RN IN ROOM, NO OTHER NEEDS AT THIS TIME
--- NOTE | 2020-05-27 10:07 | NUR ---
THIS RN TO ROOM TO CHECK ON PT. PT RESTING WITH EYES CLOSED UP IN CHAIR. RESPIRATIONS EVEN AND UNLABORED WITH RR OF 24. PT AWAKENS TO MOVMENT IN ROOM AND ASKS FOR ADDITIONAL PILLOWS. PILLOWS PROVIDED. WITH TALKING RESIPRATION RATE INCREASES TO 32. O2 SATURATION 93% ON 2L O2 BY NC. PT RECLINED REQUESTED. PUMP ALARMING, DISTAL OCCLUSION. IV ASSESSED, WNL. INFUSION RESTARTED. PTS RESPIRATORY RATE RETURNS TO 24 BREATHS PER MINUTE WITH REST. NO ADDITIONAL REQUESTS OR COMPLAINTS. CALL LIGHT WITHIN REACH.
[2020-05-27] MEDS ORDERED: LEVOFLOXACIN500 MG PO (10:39)
--- NOTE | 2020-05-27 10:50 | NUR ---
THIS RN TO ROOM WITH MD FOR ROUNDS. PT UP TO CHAIR. IV ABX INFUSION COMPLETE. IV SALINE LOCKED AT THIS TIME, ALCOHOL CAP APPLIED. PT UPDATED ON DISCHARGE PLANS. PT STATES "I CAN'T DISCHRAGE TODAY, I'M NOT STRONG ENOUGH." PT BELIEVES SHE LIVES AT [facility] AT [facility] LIV[facility]. PT REORIENTED, THAT SHE LIVES AT [facility] NOW. PT SATES "i CAN'T GO TO [place], I WON'T GET THE CARE I NEED." PT AGREES TO TALK WITH CASE MANAGMENT. VIVIANA IN CASE MANAGEMENT UPDATED, PTS SON CALLED AND STATES HE WILL COME IN TO TALK WITH PT ABOUT PLAN OF CARE AND DISCHARGE. PT UPDATED AND STATES SHE IS OK WITH WAITING TO SEE WHAT HER SON AND VIVIANA HAVE TO SAY. PT CONTINUES TO REPEAT "I'M NOT STRONG ENOUGH TO GO HOME." AUTOMATIC WHEEL LINE OPERATOR AT BEDSIDE WORKING WITH PT. NO ADDITIONAL REQUESTS OR COMPLAINTS AT THIS TIME. CALL LIGHT IN PTS LAP
--- NOTE | 2020-05-27 11:00 | NUR ---
Notified by staff, pt does not remember she is now living at [facility]. Pt insisting she return to [facility] and refuses [facility]. Request staff not argue with pt. I will call her son or daughter and request they come in and speak with pt. I was unable to reach pt's daughter, but reached son, Tomy. He states he will come to the hospital in approximately 45 min. Asked by staff to call son and request he bring pt's clothing as she arrived by ambulance. Notified son does not live with his mom. Pt resided at [facility] and moved to [facility] whe she became a 2 per/huyen. Requested they call the animal care supervisor and request scrubs to send the pt to [facility] in.
--- NOTE | 2020-05-27 11:00 | NUR ---
Patient awake in chair, this FILM PROCESSING SHIFT SUPERVISOR in to prepare patient for d/c. Patient adament she is "not ready" to be dischared today. "My walking is still not good" Patient repeatedly stating she doesn't want to go to [place], as she feels she won't get the rehab she needs. This judge's clerk and TESSY Graham educating patient on her improved state since being admitted last week, and the reason she is being d/cd today. Patient understands and sgrees, but still insistant she go to another facility or "private care." TESSY Graham in to visit shoe caser Ruth Ann. Son called. Call light in reach, IV removed.
--- NOTE | 2020-05-27 12:15 | NUR ---
Met with pt and her son, Tomy. Discussed and reminded pt she now lives at [facility] as she was unable to ambulate without a 2 person assist. Pt initially does not remember, but son reminds. Discussed with pt she can return to [facility] when she is strong enough to walk with her walker. Pt then agrees to go the [facility]. Informed I will call [facility] van to transport at 1 pm and pt states she cannot go then. Informed I will contact van to see when they can transport. VAn will brain picker at 2pm and go to t and brain picker her wc for transport. Pt updated and is in agreemetn with this time.
--- NOTE | 2020-05-27 12:47 | NUR ---
THIS RN TO ROOM TO CHECK ON PT. PT UP TO CHAIR VISITING WITH SONRUBEN. PT DENIES PAIN AND NAUSEA. O2 AT 95% ON 2L O2 BY NC, PER BASELINE. PT VERBALIZES UNDERSTANDING OF PLAN OF CARE AND STATE SHE IS PLANNING TO GO BACK TO [place] AT 1400. SON AND PT STATE THEIR QUESTIONS HAVE BEEN ANSWERED. NO ADDITIONAL REQUESTS OR COMPLAINTS. CALL LIGHT WITHIN REACH.
--- NOTE | 2020-05-27 12:50 | NUR ---
REPORT CALLED TO TESSY HEREDIA AT [facility]. GIOVANNA STATES HER QUESTIONS HAVE BEEN ANSWERED.
--- NOTE | 2020-05-27 13:05 | NUR ---
PT ASLEEP-DID NOT WAKE HER. WILL CHECK BACK
--- NOTE | 2020-05-27 13:41 | NUR ---
PATIENT SITTING UP IN CHAIR, D/C VITALS AND I&OS CHARTED. TRANSPORTATION IS ON IT'S WAY.
--- NOTE | 2020-05-27 13:52 | NUR ---
PT READY FOR DISCHRAGE. VITAL SIGNS STABLE. PT VERBALIZES UNDERSTANDING OF DISCHARGE PLAN BUT FOR SOME ONGOING CONFUSION REGARDING "WHERE AM I GOING." PT CONTINUES TO BE UNSURE WHERE HER BELONGINGS ARE AND STATES SHE THINKS SHE IS GOING "TO MY HOUSE" OR "[place]." PTS SON AT BEDSIDE TO HELP PT UNDERSTAND. 2 PERSON ASSIST TRANSFER TO PTS HOME WHEELCHAIR. PT WHEELED FROM MED/SURG TO BE TRANSPORTED BY WHEELCHAIR VAN TO [place]. DISCHARGE PACKET GIVEN TO TRANSPORT [facility].
--- NOTE | 2020-05-27 14:20 | NUR ---
CONNECTED WITH PT DURING DC. GAVE COMFORT AND ENCOURAGEMENT. PT THANKED ME
== END 2020-05-27 14:05 | disposition home or self-care (01) | DRG 178 ==
LOC: ED 01:24 → MS 01:25
PROVIDERS: ADMIT Internal Medicine; ATTEND Internal Medicine
DX: J15.6 Pneumonia due to other Gram-negative bacteria (principal); J96.11 Chronic respiratory failure with hypoxia; Z20.822 Contact with and (suspected) exposure to COVID-19; J41.8 Mixed simple and mucopurulent chronic bronchitis; I10 Essential (primary) hypertension; I87.2 Venous insufficiency (chronic) (peripheral); K59.09 Other constipation; D50.9 Iron deficiency anemia, unspecified; H40.9 Unspecified glaucoma; Z66 Do not resuscitate; Z79.899 Other long term (current) drug therapy; Z99.81 Dependence on supplemental oxygen; Z79.51 Long term (current) use of inhaled steroids; Z85.3 Personal history of malignant neoplasm of breast; Z86.73 Personal history of transient ischemic attack (TIA), and cerebral infarction without residual deficits; Z87.311 Personal history of (healed) other pathological fracture
CPT/HCPCS: 71045; 80053; 83880; 84484; 85025; 94640; 94667; 94668; 94760; 94762; 97162; 97530; 99285-25; C9803; J0692; J1650; J1956; J7121; U0003

== ENCOUNTER 2020-08-01 13:47 | Emergency (ER) | payer MEDICARE, OTHER ==
[~2020-08-01] VITALS: Ht 157.5 cm; Wt 66.7 kg
[~2020-08-01 13:47] MED LIST changes: +ARTIFICIAL TEAR15 M3 OU; +CALCIUM500 MG PO; +FLEET ENEMA133 ML PR; +LAXATIVE SUPPOS10 MG PR; +LEVOFLOXACIN500 MG PO; +MILK OF MA400 MG/5 M PO; +NITROGLYCERIN0.4 MG SL; +NITROSTAT0.4 MG SL; +SENNA LAX8.6 MG PO; +SIMETHICONE80 MG PO; +SYMBICORT 16010.2 GM INH
--- OUTSIDE RECORDS SUMMARY | 2020-08-01 13:50 | XMS ---
PreManage Notification: [facility] [place] Security Ends Breakage Clerk Events No recent Security Events currently on file CRITERIA MET - [facility] CARE PROVIDERS [facility] Residential [facility] [employer] \F\ [employer] PHONE: [phone] [facility] 12/21/2017-Current PHONE: [phone] Jj has no Care Guidelines for this patient. EJose VISIT COUNT (12 MO.) 3 [facility] TOTAL 3 NOTE: Visits indicate total known visits. ED/UCC VISIT TRACKING (12 MO.) 08/01/2020 13:47 [facility] [place] TYPE: Emergency COMPLAINT: - RT LEG PAIN 05/24/2020 01:24 [facility] [place] TYPE: Emergency COMPLAINT: - SOB 01/29/2020 09:43 [facility] [place] TYPE: Emergency COMPLAINT: - ALTERED MENTAL STATUS INPATIENT VISIT TRACKING (12 MO.) 05/24/2020 09:12 [facility] [place] TYPE: Medical Surgical COMPLAINT: - PNEUMONIA DIAGNOSES: - Essential (primary) hypertension - Unspecified glaucoma - Chronic respiratory failure with hypoxia - Do not resuscitate - Dependence on supplemental oxygen - Personal history of transient ischemic attack (TIA), and cerebral infarction without residual deficits - superintendent terminal (current) use of inhaled steroids - Venous insufficiency (chronic) (peripheral) - Personal history of (healed) other pathological fracture - Other constipation - Personal history of malignant neoplasm of breast - Other group home (current) drug therapy - Mixed simple and mucopurulent chronic bronchitis - Pneumonia, unspecified organism - Iron deficiency anemia, unspecified - Pneumonia due to other Gram-negative bacteria 01/29/2020 17:24 [facility] [place] TYPE: Medical [...] exposure to other viral communicable diseases - superintendent terminal (current) use of inhaled steroids - Cerebral aneurysm, nonruptured - Personal history of nicotine dependence - Unspecified fall, initial encounter - Essential (primary) hypertension - Other group home (current) drug therapy - Repeated falls - Do not resuscitate [email or web address]
[2020-08-01] MEDS ORDERED: IRON325 M1 PO (14:29)
[2020-08-01] MEDS ORDERED: LASIX40 MG PO (14:30)
[2020-08-01] MEDS ORDERED: PREDNISONE20 MG PO (19:08)
[2020-08-01] MEDS ORDERED: ACETAMINOPHEN-1 EAC1 PO (19:09)
== END 2020-08-01 19:29 | disposition home or self-care (01) ==
LOC: ED 13:47
DX: S32.019A Unspecified fracture of first lumbar vertebra, initial encounter for closed fracture (principal); M54.41 Lumbago with sciatica, right side; X58.XXXA Exposure to other specified factors, initial encounter; J44.9 Chronic obstructive pulmonary disease, unspecified; I11.0 Hypertensive heart disease with heart failure; I50.9 Heart failure, unspecified; E78.00 Pure hypercholesterolemia, unspecified; Z85.3 Personal history of malignant neoplasm of breast; K21.9 Gastro-esophageal reflux disease without esophagitis; Z87.891 Personal history of nicotine dependence; Z79.899 Other long term (current) drug therapy
CPT/HCPCS: 72131; 80048; 81001; 83735; 85025; 87088; 93971; 99284-25; J1100

== ENCOUNTER 2021-04-15 06:31 | Inpatient (IN) | payer MEDICARE, OTHER ==
[~2021-04-15] VITALS: Ht 157.5 cm; Wt 59.6 kg
[~2021-04-15 06:31] MED LIST changes: +ACETAMINOPHEN-1 EAC1 PO; +CEROVITE SENIO1 EACH PO; +DOCUSATE SODIU1 EACH PO; +IPRAT-ALBUT 0.5-3 ML INH; +IRON325 M1 PO; +LASIX40 MG PO; +MICRO AIR1 EACH MISC; +VITAMIN C250 MG PO
--- OUTSIDE RECORDS SUMMARY | 2021-04-15 06:34 | XMS ---
PreManage Notification: CARLOS TOLEDO Security Form Designer Events No recent Security Events currently on file CRITERIA MET - [facility] - 2 Visits in 30 Days - ED - Positive COVID-19 Lab Result - [facility] SALVATORE COSBY Physician Road Test Examiner Current PHONE: Unknown JESENIA DAVIS Technical Sales Support Specialistnatividad Dejesus PHONE: [phone] SUSANNA LOWE [facility] Current PHONE: [phone] THERESE JULIO [facility] Current PHONE: Unknown Jj has no Care Guidelines for this patient. Deni VISIT COUNT (12 MO.) 4 [facility] TOTAL 4 NOTE: Visits indicate total known visits. ED/UCC VISIT TRACKING (12 MO.) 04/15/2021 06:32 [facility] [place] TYPE: Emergency COMPLAINT: - DIFFICULTY BREATHING 04/14/2021 03:02 [facility] [place] TYPE: Emergency COMPLAINT: - SOB 08/01/2020 13:47 [facility] [place] TYPE: Emergency COMPLAINT: - RT LEG PAIN DIAGNOSES: - Personal history of nicotine dependence - Lumbago with sciatica, right side - Gastro-esophageal reflux disease without esophagitis - Hypertensive heart disease with heart failure - Unspecified fracture of first lumbar vertebra, initial encounter for closed fracture - Pain in right leg - Heart failure, unspecified - Chronic obstructive pulmonary disease, unspecified - Personal history of malignant neoplasm of breast - Pure hypercholesterolemia, unspecified - Other ocean transportation intermediary (current) drug therapy - Exposure to other specified factors, initial encounter 05/24/2020 01:24 [facility] [place] TYPE: Emergency COMPLAINT: - SOB INPATIENT VISIT TRACKING (12 MO.) 05/24/2020 09:[address] [facility] [place] TYPE: Medical Surgical COMPLAINT: - PNEUMONIA DIAGNOSES: - Essential (primary) hypertension - Unspecified glaucoma - Chronic respiratory failure with hypoxia - Do not resuscitate - Dependence on supplemental oxygen - Personal history of transient ischemic attack (TIA), and cerebral infarction without residual deficits - meterman (current) use of inhaled steroids - Venous insufficiency (chronic) (peripheral) - Personal history of (healed) other pathological fracture - Other constipation - Personal history of malignant neoplasm of breast - Other prison (current) drug therapy - Mixed simple and mucopurulent chronic bronchitis - Pneumonia, unspecified organism - Iron deficiency anemia, unspecified - Pneumonia due to other Gram-negative bacteria [email or web address]
[2021-04-15] MEDS ORDERED: AMLODIPINE BESY10 MG PO (10:00)
--- NOTE | 2021-04-15 10:00 | NUR ---
REPORT RECIEVED FROM ER AND PT. ASSISTED BY 3 STAFF WITH TRANSFER TO BED FROM [facility] . PT IS DROWSY BUT EASILY AWAKENS. ORIENTED TO ALL BUT DATE. SHE DENIES PAIN AND REPORTS SOB. SHE IS ON 3L OXYMASK AND O2 SAT IS 94%. AFTER SWITCHING TO NC, O2 SAT DROPPED TO 84%. PLACED BACK ON OXYMASK. LUNGS COARSE THROUGHOUT. ATTENDS DRY AND PT. DENIES NEED TO VOID. IV SITE WNL AND FLUSHES. SHE HAS A SCABBED RIGHT FOREARM FROM SKIN TEAR. +1 EDEMA PRESENT BLE. PT. ASSISTED WITH REPOSITIONING. DISCUSSED SAFETY, MEDS AND 02. LEFT RESTING WITH CALL LIGHT IN REACH.
[2021-04-15] MEDS ORDERED: FUROSEMIDE20 MG PO (10:01)
[2021-04-15] MEDS ORDERED: POTASSIUM CHLO10 MEQ PO (10:03)
--- NOTE | 2021-04-15 10:36 | NUR ---
PT. MEDS ADMINISTERED. UPDATED ABOUT RR OF 42. RT CONTACTED TO ASSESS PT AND NEB TX ADMIN. PT. IS VERY WEAK WHEN DRINKING WITH STRAW. ASSISTED WITH CUP AND TAKING MEDS. DENIED FURTHER NEEDS LEFT RESTING WITH ALARM ON AND CALL LIGHT IN REACH.
--- NOTE | 2021-04-15 11:08 | NUR ---
ROUNDING ON PT. SHE DENIES SOB OR PAIN AT THIS TIME. SHE IS STILL TACHYPNEIC WITH RR OF 37 WITH ACCESSORY MUSCLE USE. PT. BROUGHT FRESH ICE WATER. LEFT RESTING WITH CALL LIGHT IN REACH AND ALARM ON.
--- NOTE | 2021-04-15 11:29 | NUR ---
PT. ASSISTED TO BSC BY 2 STAFF. SHE IS VERY WEAK UNABLE TO STAND ALONE OR TAKE STEPS. VOIDED AND CLEANED WITH FRESH ATTENDS IN PLACE. PT. HAS DIFFICULTY DRINKING FROM SMALL OR LARGE STRAW AND NEEDS ASSISTANCE HOLDING CUP. PT. DENIES FURTHER NEEDS. LEFT RESTING WITH CALL LIGHT IN REACH AND ALARM ON.
--- NOTE | 2021-04-15 13:37 | NUR ---
PT. ASSISTED BY THREE STAFF TO BED SIDE COMMODE WITH FWW AND GAIT BELT. SHE WAS UNABLE TO BEAR WEIGHT AND IS VERY WEAK. RR IS 46 AND BREATHING SOUNDS ARE GURGLED, BUT PATIENT UNABLE TO HAVE PRODUCTIVE COUGH. SHE IS TOO WEAK TO DRINK FROM A STRAW OR HOLD A SPOON TO EAT. ASSISTED WITH EATING. UPDATED ON PT. CONDITION. NO NEW ORDERS. LEFT RESTING WITH CALL LIGHT IN REACH, ALARM ON AND CPOX IN PLACE.
[2021-04-15] MEDS ORDERED: NITROGLYCERIN0.4 MG SL (14:56)
[2021-04-15] MEDS ORDERED: SIMETHICONE80 MG PO (14:57)
[2021-04-15] MEDS ORDERED: GUAIFENESIN200 MG PO (15:05)
--- NOTE | 2021-04-15 15:19 | NUR ---
MED REC COMPLETED BY PHARMACY
--- NOTE | 2021-04-15 15:41 | NUR ---
PT. HAD A LARGE INCONTINENT VOID. SHE WAS CLEANED AND ATTENDS CHANGED. BIPAP IN PLACE. PT. LEFT RESTING WITH CALL LIGHT IN REACH AND CURTAIN OPEN.
--- NOTE | 2021-04-15 18:30 | NUR ---
PT. ASSISTED WITH REPOSITIONING. BIPAP REMOVED TEMPORARILY AND SHE WAS PLACED ON 3L OXYMASK. PT. REFUSED AND PULLED OFF MASK. O2 SAT DROPPED TO 73% ON RA. OXYMASK REPLACED. PT. HAD AN INCONTINENT VOID. ASSISTED WITH CLEANING AND CHANGING. REPOSITIONED WITH PILLOWS. PT. GIVEN ENSURE AND WATER. PLACED BACK ON BIPAP. RR IS 40. WILL CONTINUE TO MONITOR.
--- NOTE | 2021-04-15 19:44 | NUR ---
BEDSIDE REPORT FROM NAOMIE Harrington RN, PT ON BIPAP, RR 39 BPM AT THIS TIME. PT EYES CLOSED. BIPAP ON 40%FIO2.
--- NOTE | 2021-04-15 20:55 | NUR ---
PT RESTING IN BED EYES CLOSED ON BIPAP, 96% OXYGEN SATURATION PER CONT. PULSE OXIMETRY ON TELE #1.
--- NOTE | 2021-04-15 22:38 | NUR ---
PT ON N.C. AT THIS TIME, TAKING A BREAK FROM BIPAP TO HAVE WATER AND WATCH TV, SHE IS ON 4L N.C. AT THIS TIME 96% OXYGEN SATURATION, DISCUSSED PLAN WITH MILTON Sorto, HE AGREED TO GIVE PT A BREAK FOR 1-[address] BACK ON BIPAP FOR RESPIRATORY SUPPORT. MORPHINE 5MG PO GIVE FOR SOB. WILL MONITOR CLOSE. PT ALERT AND COMMUNICATES APPROPRIATELY AT THIS TIME. CALL LIGHT IN REACH
--- NOTE | 2021-04-16 00:01 | NUR ---
PT RESTING IN BED EYES CLOSED RR EVEN 28 BPM, NO DISTRESS NOTED. 93% OXYGEN SATURATION ON 4L N.C. AT THIS TIME.
--- NOTE | 2021-04-16 00:56 | NUR ---
PT ASKED IF SHE WOULD LIKE TO BE BACK ON THE MASK AT THIS TIME, SHE SAID "YES, MASK" PT PLACED BACK ON BIPAP AT THIS TIME, MILTON Sorto AT BEDSIDE.
--- NOTE | 2021-04-16 02:20 | NUR ---
IN TO GET VITALS, PT NEEDED TO VOID, RN AND THIS PLASTIC MOLDING OPERATOR HEAVY 2PA PIVOT TO THE BSC, THEN BACK TO BED, TELE BATTERY REPLACED, PT HAD SIPS OF WATER, NO FURTHER NEEDS AT THIS TIME
--- NOTE | 2021-04-16 02:32 | NUR ---
ROUNDING, V/S TAKEN PER PROTOCOL, ASSESSMENT COMPLETE, PT VERBALIZED SHE NEEDS TO USE THE BATHROOM, PT VERBALIZED SHE AMBULATES WITHOUT A WALKER AT BASELINE, WHEN ASKED IF SHE WOULD RATHER USE BED LANCASTER OR BEDSIDE COMMODE SHE SAID BEDSIDE COMMODE, PT HEAVY TWO PERSON ASSIST TO BEDSIDE COMMODE, SHE VOIDED 200ML CLEAR YELLOW URINE, TWO PERSON BACK TO BED. PT AGREES TO USE BED LANCASTER UNTIL FEELING STRONGER, OTHERWISE SHE WILL NEED TO BE HOYERED. SHE DESATURATED TO 88% ON 4L N.C. WITH ACTIVITY, THEN RECOVERED WITHIN 3 MIN AT REST TO 91% ON 4L. SHE SAID NO TO THE BIPAP AT THIS TIME. ASSISTED WITH DRINKING WATER. AGREED TO LEAVE BIPAP OFF FOR PT TO HAVE BREAK AT THIS TIME.
--- NOTE | 2021-04-16 04:18 | NUR ---
PT NOTED TO BE 86% OXYGEN SATURATION ON TELEMETRY OXIMETRY, ROUNDED TO CHECK ON PT, SHE HAD PULLED THE BIPAP MASK OFF AND HAD NO OTHER OXYGEN IN PLACE, PT ALERT TO RN AT BEDSIDE PICKED UP BIPAP MASK, PT SAID "NO IT IS HURTING MY FACE" THIS RN SAID OK, WE CAN PLACE THE N.C. FOR NOW. DISCUSSED WITH MILTON Sorto AT THIS TIME. HE IS GOING TO TITRATE OXYGEN UP SHE IS SATURATING AT 88% ON 4L, SHE HAS BEEN SLEEPING, AND HAS BEEN MOUTH BREATHING WELL.
--- NOTE | 2021-04-16 04:52 | NUR ---
PT HAS BEEN ON BIPAP MOST OF SHIFT, SHE HAS REQUESTED TO HAVE INTERMITTEN BREAKS, SHE HAS BEEN FOUND TO REMOVE HER BIPAP MASK OR OXY MASK WITHOUT CALLING, NOTED TO DESATURATE TO 85% AT ONE POINT WHILE ON ROOM AIR. SHE WAS NOTED BY MILTON Sorto HAVE HAVE APNIC EPISODES AND SHE BREATHS THROUGH HER MOUTH WHILE SLEEPING. SHE CURRENTLY HAS N.C. AND OXY MASK ON FOR TOTAL OF 6L SATURATION 99%, WILL MONITOR TO TITRATE. HER RR RATE HAS IMPROVED OVER SHIFT MID 20'S FOR BPM. SHE WAS GIVEN MORPHINE 5MG PO FOR SOB AT HS AND THIS WAS AFFECTIVE. SHE HAS BEEN COOPERATIVE WITH CARE, SHE WANTED TO TRY THE BEDSIDE COMMODE, SHE WAS UNABLE TO ASSIST, SHE SHOULD BE SHERRI OR BED LANCASTER AT THIS TIME. FRAGILE SKIN AND ASPIRATION PRECAUTIONS SHOULD BE MONITORED CLOSELY.
--- NOTE | 2021-04-16 05:23 | NUR ---
PT RESTING IN BED TITRATED OXYGEN DOWN TO 4L, 2L N.C. AND 2L OXYMASK PT MAY PULL OFF OXYMASK HERSELF, PT REPORTS SHE FEEL COLD, WAR BLANKET PROVIDED AND TURNED UP ROOM TEMP.
--- NOTE | 2021-04-16 07:45 | NUR ---
REPORT RECEIVED FROM NIGHT RN AND PT. CARE RESUMED. PT. IS ALERT AND ORIENTED TO ALL BUT DATE AND TIME. IV SITE WNL AND FLUSHES WELL. RR IS 28 ON 2L OXYMASK. PLACED ON NC 2L FOR BREAKFAST. SHE DENIES PAIN AT THIS TIME. SHE IS WEAK IN ALL EXTREMITIES, BUT ABLE TO HOLD A CUP TODAY AND DRINK. ASSISTED WITH REPOSITIONING. DISCUSSED MEDS, POC AND SAFETY LEFT RESTING WITH CALL LIGHT IN REACH.
--- NOTE | 2021-04-16 10:02 | NUR ---
CALL PLACED TO SUMMER AT [facility] TO UPDATE ABOUT THE PATIENT ADMISSION STATUS. PER AM MEETING PATIENT IS LIKELY TO BE ADMITTED UNTIL MONDAY OR MONDAY, SUMMER NOTIFIED. I ADVISED SUMMER WE WILL CALL WITH FURTHER UPDATE WHEN AVAILABLE.
--- NOTE | 2021-04-16 10:11 | NUR ---
CASE MANAGEMENT ASSESSMENT COMPLETED WITH [facility] ASSISTANCE OF [facility] AT [facility]. PATIENT CURRENTLY RESIDES IN [facility]. PATIENT HAS HAD ON GOING ISSUES WITH MOBILITY AND IS CURRENTLY RECVING PT AT HOME. [facility] STATES PATIENT HAS BEEN WORKING ON PIVOT TRANSFER AND SHORT DISTANCE (1-2 STEP) TRANSFERS. PATIENT SON MARIZA TOLEDO ([phone]) RESIDES IN [place] ALONG WITH THE PATIENT DAUGHTER IN LAW JESSICA WRIGHT. DEMOGRAPHIC INFORMATION UPDATED. NAOMIE RN NOTIFIED OF PATIENT MOBILITY BASELINE AND NEED FOR TRANSFER ASSISTANCE.
--- NOTE | 2021-04-16 10:55 | NUR ---
PT. ASSISTED REMOVING BEDPAN. SHE WAS UNABLE TO ASSIST WITH TURNING IN BED. ON 4L NC AND 02 SAT IS 98%. RR IS 40BPM AND R.T. CALLED TO ADJUST BIPAP SO SHE GO BACK ON. LEFT RESTING WITH CALL LIGHT IN REACH.
--- NOTE | 2021-04-16 12:04 | NUR ---
STAFF VERY BUSY CARING FOR PT, WILL CHECK BACK
--- NOTE | 2021-04-16 13:48 | NUR ---
PT. C/O SOB AND RR WAS 37. PLACED BACK ON BIPAP.
--- NOTE | 2021-04-16 17:43 | NUR ---
PT. USED CALL LIGHT APPROPRIATELY TO C/O PARRA. ADMIN TYLENOL. ASSISTED WITH REPOSITIONING AND GIVEN FRESH WATER. LEFT RESTING WITH CALL LIGHT IN REACH.
--- NOTE | 2021-04-16 19:37 | NUR ---
PT RESTING IN BED. SHIFT REPORT RECEIVED FROM NAOMIE STILL. SPO2 92% ON 2L OXY MASK. CALL LIGHT IN REACH.
--- NOTE | 2021-04-16 20:05 | NUR ---
IN TO GET VITALS, PT WAS INCONT OF URINE, CHANGED, WATER FILLED, ROOM TITIED, NO FURTHER NEEDS AT THIS TIME
--- NOTE | 2021-04-16 20:13 | NUR ---
ASSESSMENT COMPLETED. SCHEDULED MED PROVIDED. PT REPOSITIONED. LUNGS CLEAR IN UPPER LOBES, COURSE IN LOWER LOBES. NC @ 2L, SPO2 93%. HEART TONES REGULAR. ABD SOFT, NONTENDER, BOWEL TONES ACTIVE. CMS INTACT. BLE 1+ EDEMA. SKIN IS FRAGILE, SCAB NOTED ON RFA, SOLE SKIVER. PT ORIENTED TO PERSON AND PLACE. GCS 15. RR 34. NO OTHER NEEDS AT THIS TIME. CALL LIGHT IN REACH.
--- NOTE | 2021-04-16 21:30 | NUR ---
IN TO CHANGE PTs TELE BATTERY, PT AWAKENS, NEEDS TO VOID, ON BEDPAN, UNABLE TO VOID, AFTER 10MINS, TOOK PT OFF, ATTENDS CDI, RISHI PAD IN PLACE, RN AWARE, NO FURTHER NEEDS
--- NOTE | 2021-04-16 22:24 | NUR ---
SCHEDULED MED PROVIDED. PRN SLEEP MED PROVIDED. NO OTHER NEEDS. SPO2 93% ON 2L NC. CALL LIGHT IN REACH.
--- NOTE | 2021-04-16 23:59 | NUR ---
PT RESTING IN BED. RR EVEN, UNLABORED. CALL LIGHT IN REACH.
--- NOTE | 2021-04-17 01:33 | NUR ---
PT REPOSITIONED. PT STATES SHE HAS USE BEDPAN, PT ON BEDPAN. CALL LIGHT IN REACH.
--- NOTE | 2021-04-17 01:43 | NUR ---
IN TO PLACE PILLOW UNDER RIGHT HIP, PT HAS TO VOID, 200MLS BEDPAN, ALSO INCONT, NEW RISHI PAD IN PLACE, PT SIPPING WATER, NO FURTHER NEEDS AT THSI TIME
--- NOTE | 2021-04-17 04:25 | NUR ---
ASSESSMENT, VS AND I&O COMPLETED. PT ORIENTED TO PERSON AND PLACE. GCS 15. LUNGS CLEAR IN UPPER LOBES AND COURSE IN LOWER LOBES. NC @ 2L. SPO2 96%. HEART TONES REGULAR. CMS INTACT. BLE EDEMA 1+. PT REPOSITIONED. NO OTHER NEEDS. CALL LIGHT IN REACH.
--- NOTE | 2021-04-17 04:28 | NUR ---
IN TO REPOSTION PT, PILLOW UNDER LEFT HIP AT THIS TIME, PT INCONT, NEW RISHI PAD IN PLACE, VITALS AT THIS TIME, NO FURTHER NEEDS
--- NOTE | 2021-04-17 05:50 | NUR ---
SCHEDULED MED PROVIDED. PT RESTING IN BED, EYES CLOSED. RR EVEN, UNLABORED. SPO2 93% ON 2L NC. CALL LIGHT IN REACH.
--- NOTE | 2021-04-17 05:55 | NUR ---
PT INCONT, CHANGED PAD, NO FURHTER NEEDS
--- NOTE | 2021-04-17 06:25 | NUR ---
IN TO REMOVE PILLOW FOR PT, PT NEEDING CHAPSTICK, HELP WITH REPOSTIONING IN BED, NO FURTHER NEEDS
--- NOTE | 2021-04-17 07:10 | NUR ---
THIS RN RECEIVED REPORT FROM GILDARDO STILL. PT APPEARS TO BE RESTING AT THIS TIME WITH RESPIRATIONS NOTED AND CALL LIGHT WITHIN REACH
--- NOTE | 2021-04-17 07:39 | EKG ---
[facility] [address] [place] [address] Signed Sinus tachycardia with premature atrial complexes Low voltage QRS Borderline ECG When compared with ECG of 14-APR-2021 03:12, No significant change was found Confirmed by EMILY SALINAS MD ([id number]) on 04/17/2021 7:38:47 AM Electronically Signed By: EMILY SALINAS MD 04/17/21 0739 PATIENT NAME: CARLOS TOLEDO Electrocardiogram DATE OF : 34 PHYSICIAN: EMILY SALINAS MD REPORT #: [id number] REPORT IS CONFIDENTIAL AND NOT TO BE RELEASED WITHOUT AUTHORIZATION
--- NOTE | 2021-04-17 08:50 | NUR ---
THIS RN IN PTS ROOM TO GIVE PTS MORNING MEDS. PT AWAKE AND ALERT, ORIENTED X2. PT STATES THAT SHE TAKES HER PILLS ONE AT A TIME. PT PUT A PILL ON TONGUE AND THEN GLUPPED DOWN WATER, UNSUCESFUL WITH SWALLING PILL. THIS RN HAD PT TUCK CHIN TO CHEST, PT HAD TO BE QUED TO DO THIS A COUPLE TIMES AND ATTEMPTED TO TAKE PILLS WITH HER CREAM OF WHEAT. PT FINALLY ABLE TO GET ALL PILLS DOWN AFTER 30 MINS OF ASSISTANCE FROM THIS RN.
--- NOTE | 2021-04-17 09:45 | NUR ---
THIS RN BACK INPTS ROOM DUE TO PT CALLING STATING THAT SHE WAS HAVING TROUBLE BREATHING, OPAL RN TO CALL EVELIN FROM RT. AUDIBLE EXPRIATORY WHEEZE NOTED. BRATHING TREATMENT DONE BY EVELIN RT AT 1000
--- NOTE | 2021-04-17 13:20 | NUR ---
THIS RN IN PTS ROOM TO CHECK ON PT. PT CALLING OUT OF ROOM FOR HELP. THIS RN RE-EDUCATED PT ON WHERE HER CALL LIGHT WAS IN HER LAP. PT SHOWED HER UNDERSTANDING AT THIS TIME AND ONLY NEEDED HER PUDDING OPENED
--- NOTE | 2021-04-17 14:30 | NUR ---
THIS RN IN PTS ROOM TO GIVE SCHEDULED MEDS. PT DOING WELL BUT STATES THAT SHE IS TIRED AND UNCOMFORTABLE SITTING UP IN THE CHAIR AND WOULD LIKE TO GO BACK TO BED. THIS RN ASSISTED BY KENISHA RN GOT PT BACK TO BED. CALL LIGHT WITHIN REACH
--- NOTE | 2021-04-17 19:34 | NUR ---
REPORT RECEIVED FROM DAY SHIFT RN. PT LYING IN BED RESTING WITH EYES CLOSED. RESPIRATIONS EVEN. SpO2 96% WITH 2L/NC IN PLACE. HR 70'S. WHITE BOARD UPDATED. CALL LIGHT IN REACH.
--- NOTE | 2021-04-17 21:50 | NUR ---
EVENING ASSESSMENT COMPLETE. SCHEDULED MEDS ADMINISTERED PER EMAR. NO SWALLOWING ISSUES NOTED. PT DENIES PAIN OR NAUSEA. DENIES SOB. DOES REPORT PHLEGM IN CHEST AND THROAT THAT SHE IS NOT ABLE TO COUGH UP. RT AT BEDSIDE FOR PRN BREATHING TX AND INSTRUCTIONS FOR ACAPELLA USE. PT GORDO WELL BUT STILL UNABLE TO CLEAR ALL SECRETIONS. PRN FOR COUGH ADMINISTERED PER EMAR. HOB ELEVATED. 2L/NC IN PLACE. PT INCONTINENT OF URINE. RISHI CARE DONE BY STAFF. CLEAN BRIEF PLACED. 2PA TO REPOSITION IN BED. HEELS FLOATED WITH A PILLOW FOR COMFORT. PT DENIES FURTHER NEEDS AT THIS TIME. CALL LIGHT IN REACH.
--- NOTE | 2021-04-17 23:16 | NUR ---
SpO2 85-88% WITH 2L/NC IN PLACE. PT BREATHING THROUGH MOUTH. NASAL CANULA REPLACED WITH 3L/OXY MASK. SpO2 >92%. PT DENIES SOB. RESPIRATIONS EVEN. EXTRA BLANKET PROVIDED. ASSISTED PT TO REPOSITION IN BED. NO FURTHER NEEDS.
--- NOTE | 2021-04-18 00:53 | NUR ---
THIS RN IN ROOM TO CHECK ON PT. PT REPORTS FEELING PAIN IN UPPER CHEST AREA. VS WNL. PT DENIES TIGHTNESS OR CRUSHING FEELING AND REPORTS "I'M FEELING BETTER" WHILE STAFF IN ROOM TO DO CARES. PT INCONTINENT OF URINE. STAFF ASSIST WITH RISHI CARE. CLEAN BRIEF PLACED. PT REPOSITIIONED TO LEFT SIDE WITH PILLOWS. CONGESTED NON PRODUCTIVE COUGHT NOTED. PT DENIES FEELING SOB AT THIS TIME. RR 22. SpO2 96% WITH 3L/OXYMASK. OXYGEN TITRATED BACK TO 2L. SpO2 >92%. PT DENIES FURTHER NEEDS AT THIS TIME. CALL LIGHT IN HAND.
--- NOTE | 2021-04-18 03:18 | NUR ---
PT RESTING IN BED WITH EYES CLOSED. RESPIRATIONS EVEN. 2L/NC IN PLACE. SpO2 95%. HR 70'S.
--- NOTE | 2021-04-18 06:33 | NUR ---
VS AND I&O COMPLETE. PT INCONTINENT OF URINE. RISHI CARE DONE BY STAFF. CLEAN ATTENDS IN PLACE. 2PA TO REPOSITION IN BED. 2L/NC IN PLACE. SpO2 95-97%. TACHYPNEA NOTED. PT WITH STRONGER COUGH THIS AM. REMAINS NON PRODUCTIVE. DENIES SOB. HOB ELEVATED. ASSISTED PT WITH SIPS OF FRESH WATER. NO FURTHER NEEDS. CALL LIGHT IN HAND.
--- NOTE | 2021-04-18 07:12 | NUR ---
this rn received report from maranda sunshine. pt appears to be resting at this time with respirations noted.
--- NOTE | 2021-04-18 08:25 | NUR ---
this SILK SNAPPER and TESSY Brownlee got the patient up to the chair for breakfast. call light with in reach. no further needs at this time. linens changed.
--- NOTE | 2021-04-18 13:55 | NUR ---
THIS RN IN PTS ROOM TO CHECK ON PT AND GIVE MEDS. PT IN BED RESTING. PT WAS INCONTINENT OF URINE. PT STATES THAT SHE IS FEELING WELL AND HAS NO COMPLAINTS AT THIS TIME. CALL LIGHT WITHIN REACH
[2021-04-18] MEDS ORDERED: CEFDINIR300 MG PO (15:10)
--- NOTE | 2021-04-18 19:34 | NUR ---
REPORT RECEIVED FROM DAY SHIFT RN. PT LYING IN BED RESTING WITH EYES CLOSED. RESPIRATIONS EVEN. SpO2 95% WITH 2L/NC. HR 70'S. WHITE BOARD UPDATED. CALL LIGHT IN REACH.
--- NOTE | 2021-04-18 21:30 | NUR ---
EVENING ASSESSMENT COMPLETE. SCHEDULED MEDS ADMINISTERED PER EMAR. NO SWALLOWING ISSUES NOTED. PT DENIES PAIN OR SOB. 2L/NC IN PLACE. SpO2 96%. RESPIRATIONS EVEN. AUDIBLE WHEEZE NOTED. PT WITH CONGESTED NON PRODUCTIVE COUGH. PT INCONTINENT OF URINE. STAFF ASSIST WITH RISHI CARE. CLEAN BRIEF PLACED. PT REPOSITIONED TO LEFT SIDE WITH PILLOWS. HEELS FLOATED. PT DENIES FURTHER NEEDS. CALL LIGHT IN HAND.
--- NOTE | 2021-04-19 01:00 | NUR ---
THIS MACHINERY DISMANTLER AND PRIMARY RN PARAM CHANGED PATIENT'S INCONTINENT ATTENDS AND PATIENT REPOSITIONED. CALL LIGHT AND SIDE TABLE WITHIN REACH. NO FURTHER NEEDS AT THIS TIME.
--- NOTE | 2021-04-19 01:13 | NUR ---
PT RESTING WITH EYES CLOSED. INCONTINENT OF URINE. RISHI CARE DONE BY STAFF. CLEAN BRIEF PLACED. ASSISTED PT WITH SIPS OF WATER. REPOSITIONED IN BED WITH PILLOWS. LOOSE COUGH NOTED. RESPIRATIONS EVEN. SpO2 95% ON 2L/NC. HR 60'S. CALL LIGHT IN REACH.
--- NOTE | 2021-04-19 02:34 | NUR ---
CALL LIGHT ANSWERED. PT STATES "I HAVE TO HAVE A BM". ASSISTED TO BED LANCASTER. PT VOIDED BUT DID NOT HAVE BM. RISHI CARE DONE. 2PA TO REPOSITION IN BED WITH PILLOWS. ASSESSMENT COMPLETE. PT REPORTS SHE IS COMFORTABLE. NO FURTHER NEEDS. CALL LIGHT WITHIN REACH.
--- NOTE | 2021-04-19 04:07 | NUR ---
OXYGEN SATURATIONS 87-88% WITH NASAL CANULA IN PLACE. PT BREATHING THROUGH HER MOUTH. SWITCHED TO 2L/OXYMASK. SATS >92%. RESPIRATIONS EVEN.
--- NOTE | 2021-04-19 06:32 | NUR ---
VS AND I&O COMPLETE. PT INCONTINENT OF URINE. RISHI CARE DONE BY STAFF. CLEAN BRIEF PLACED. 2PA TO REPOSITION IN BED. FRESH WATER PROVIDED. PT DENIES PAIN. DENIES SOB. LOOSE NON PRODUCTIVE COUGH. 2L/NC IN PLACE. CALL LIGHT IN REACH.
--- NOTE | 2021-04-19 06:35 | NUR ---
PT SATS NOTED 86-88% WITH 2L/NC IN PLACE. PT RETURNED TO OXYMASK/2L. SATS 96%.
--- NOTE | 2021-04-19 07:15 | NUR ---
THIS RN RECEIVED REPORT FROM PARAM STILL. PT AWAKE AND STATES THAT SHE NEEDS TO BE COVERED. THIS RN DID THIS FOR PT WHO FELL BACK ASLEEP
--- NOTE | 2021-04-19 10:00 | NUR ---
this rn in pts room with saige donaldson to change pt. this rn then provided pt with her morning meds. pt slowly takes pills and requires a lot of queing. pt able to take all meds but did have coughing spells- undetermined if she aspirated or if it was congestion- sounded more like congestion to this rn. call light within reach
--- NOTE | 2021-04-19 11:33 | NUR ---
PER STAFF AT [facility] PATIENT IS ABLE TO RETURN TODAY. CRISTHIAN LERMA CONTACTED AND WILL BE HERE TO PICK PATIENT UP AT 1415. ARAVIND STILL NOTIFIED.
--- NOTE | 2021-04-19 14:18 | NUR ---
PT LAYING IN BED,MOTIONS ME IN. "I WANT WATER" SEVERAL TIMES IN SUCCESSION. INFORMED HER I WILL NOTIFY HER RN ARAVIND, WHICH I DID. SHE WILL CARE FOR PT.
== END 2021-04-19 16:10 | disposition home or self-care (01) | DRG 194 ==
LOC: ED 06:31 → MS 09:03
PROVIDERS: ADMIT Internal Medicine; ATTEND Internal Medicine
DX: J12.1 Respiratory syncytial virus pneumonia (principal); J44.0 Chronic obstructive pulmonary disease with (acute) lower respiratory infection; J96.11 Chronic respiratory failure with hypoxia; H54.40 Blindness, one eye, unspecified eye; I11.0 Hypertensive heart disease with heart failure; I50.9 Heart failure, unspecified; K21.9 Gastro-esophageal reflux disease without esophagitis; D50.9 Iron deficiency anemia, unspecified; M19.90 Unspecified osteoarthritis, unspecified site; H40.9 Unspecified glaucoma; Z90.710 Acquired absence of both cervix and uterus; Z90.49 Acquired absence of other specified parts of digestive tract; Z85.3 Personal history of malignant neoplasm of breast; Z86.73 Personal history of transient ischemic attack (TIA), and cerebral infarction without residual deficits; Z98.890 Other specified postprocedural states; Z79.899 Other long term (current) drug therapy; Z99.81 Dependence on supplemental oxygen; Z90.89 Acquired absence of other organs; Z87.891 Personal history of nicotine dependence
CPT/HCPCS: 71045; 80048; 83735; 83880; 84484; 85025; 93005; 93010; 94640; 94660; 94667; 94668; 94760; 94762; 99285-25; J0696; J1940; J2920

== ENCOUNTER 2021-08-27 08:25 | Observation (INO) | payer MEDICARE, OTHER ==
[~2021-08-27] VITALS: Ht 157.5 cm; Wt 60.3 kg
[~2021-08-27 08:25] MED LIST changes: +AMLODIPINE BESY10 MG PO; +CEFDINIR300 MG PO; +GUAIFENESIN200 MG PO; +LOSARTAN POTASS50 MG PO; +PANTOPRAZOLE SO40 MG PO; +POTASSIUM CHLO10 MEQ PO
--- NOTE | 2021-08-27 12:04 | NUR ---
New admit to the medical floor. Patient alert and oriented to all except for the date. Patient reports shortness of breath at rest, resp rate 40bpm. Patient on 3L oxygen per nc, SP02 96% on 3L. Incontinent void x1, brief changed. Patient's skin is overall intact. Notable edema to bilat ankles. Patient oriented to room. Patient close to RN station. No current needs. Bed alarm intact, call light within reach.
--- NOTE | 2021-08-27 12:14 | NUR ---
Patient's son Don updated regarding patient's plan of care. All questions answered.
[2021-08-27] MEDS ORDERED: LOSARTAN POTAS100 MG PO (12:34)
[2021-08-27] MEDS ORDERED: PRESERVISION A1 EAC3 PO (12:34)
[2021-08-27] MEDS ORDERED: IPRAT-ALBUT 0.5-3 ML INH (12:38)
[2021-08-27] MEDS ORDERED: NYSTOP60 GM TOP (12:40)
[2021-08-27] MEDS ORDERED: LOSARTAN POTASS50 MG PO (12:43)
--- NOTE | 2021-08-27 12:43 | NUR ---
MED REC COMPLETE
--- NOTE | 2021-08-27 14:26 | NUR ---
PATIENT UP TO BSC AND BACK TO BED, 2PA PIVOT. RISHI CARE DONE.VITALS AND I&O'S CHARTED. CALL LIGHT IN REACH. NO FURTHER NEEDS AT THIS TIME. BED ALARM ON.
--- NOTE | 2021-08-27 15:35 | EKG ---
[facility] [address] [place] [address] Signed Normal sinus rhythm Minimal voltage criteria for LVH, may be normal variant ( [place] product ) Borderline ECG When compared with ECG of 30-APR-2021 12:06, No significant change was found Confirmed by TIFF ADAMES MD ([id number]) on 08/27/2021 3:35:09 PM Electronically Signed By: TIFF ADAMES MD 08/27/21 1535 PATIENT NAME: CARLOS TOLEDO Electrocardiogram DATE OF : 34 PHYSICIAN: TIFF ADAMES MD REPORT #: [id number] REPORT IS CONFIDENTIAL AND NOT TO BE RELEASED WITHOUT AUTHORIZATION
--- NOTE | 2021-08-27 16:12 | NUR ---
Patient in bed resting, no acute distress. Patient receiving breathing treatment at this time from RT. No current needs.
--- NOTE | 2021-08-27 17:08 | NUR ---
Patient resting in bed, no distress. Patient remains on 3L oxygen per nc, tachypnea noted, respiration 36bpm, improved from admit. Patient close to RN station. Personal supplies and call light within reach.
--- NOTE | 2021-08-27 18:28 | NUR ---
PATIENT UP TO BSC AND BACK TO BED, 2PA PIVOT. VITALS AND I&O'S CHARTED. VISITORS IN ROOM AT THIS TIME. CALL LIGHT IN REACH. BED ALARM ON. NO FURTHER NEEDS AT THIS TIME.
--- NOTE | 2021-08-27 20:15 | NUR ---
in to assist rn with boosting pt, no further needs at this time, bed alarm in place
--- NOTE | 2021-08-27 20:19 | NUR ---
pt awake, alert and oriented to self and place. O2 3LNC at this time, as per report pt is chronic )2 2LNC at [facility] home. Pt Resp 42 after repositioning her in bed. helpful, sob with exertion noted. denies c/o SOB by pt but increased resp noted after repositioning. Moist non productive cough present. Helpful, pleasant. 2 SL LA patent. Was incontinent of urine, attends changed. skin very dry and flaky, bruised arms noted. tolerating liquids . Fall and aspiration precautions in place. Bed alarm on. RT in room, decreased O2 to 2L NC after his assessment.
--- NOTE | 2021-08-27 21:40 | NUR ---
dr rahman notified of tacheipneic episodes and sats WNL, and decreasing O2 to 2L and maintaining sats WNL. no new orders
--- NOTE | 2021-08-27 22:50 | NUR ---
ON 2L NC, EYES CLOSED, HOB ELEVATED, NO DISTRESS. CALM, RESP 24
--- NOTE | 2021-08-28 05:10 | NUR ---
more awake, verbal, clear speech, on room air, usescall lihgt, ivf infusing w/o problems, f/c patent
--- NOTE | 2021-08-28 06:40 | NUR ---
WAS ON 3L AT BEGINING OF SHIFT, DOWN TO 2L AT THIS TIME, SATS WNL. MOIST PRODUICTIVE COUGH PRESENT. LUNGS COARSE AND DIM, HOB ELEVATED TO COMFORT PLEASANT AND COOPERATIVE. BRUISED R ARM HEALING. WAS INCONTINENT OF URINE CLEAN ATTENDS IN PLACE. USES CLL LIGHT, TOLERATING LIQUIDS WELL
[2021-08-28] MEDS ORDERED: PREDNISONE20 MG PO (12:13)
[2021-08-28] MEDS ORDERED: AZITHROMYCIN500 MG PO (12:14)
[2021-08-28] MEDS ORDERED: BENZONATATE200 MG PO (12:15)
[2021-08-28] MEDS ORDERED: IPRAT-ALBUT 0.5-3 ML INH (12:15)
--- NOTE | 2021-08-28 12:35 | NUR ---
Patient resting in bed, no acute distress. Patient remains on 2L oxygen per nc, respirations 30/bpm. Patient reports she feels better today. SP02 93% on 2L oxygen. Patient denies pain at this time. Close to RN station.
== END 2021-08-28 13:40 | disposition home or self-care (01) ==
LOC: ED 08:25 → MS 08:26
PROVIDERS: ADMIT Internal Medicine; ATTEND Internal Medicine
DX: J44.1 Chronic obstructive pulmonary disease with (acute) exacerbation (principal); J96.21 Acute and chronic respiratory failure with hypoxia; I11.0 Hypertensive heart disease with heart failure; I50.9 Heart failure, unspecified; K21.00 Gastro-esophageal reflux disease with esophagitis, without bleeding; H54.62 Unqualified visual loss, left eye, normal vision right eye; M19.90 Unspecified osteoarthritis, unspecified site; E78.5 Hyperlipidemia, unspecified; Z20.822 Contact with and (suspected) exposure to COVID-19; Z87.891 Personal history of nicotine dependence; Z85.3 Personal history of malignant neoplasm of breast
CPT/HCPCS: 36415; 71045; 80053; 83605; 83735; 83880; 84484; 85025; 87502; 93005; 93010; 94640; 94667; 94668; 94760; C9803; J2920; U0003